=== PATIENT | male | born 1950 | race Two or more races ===

== ENCOUNTER 2016-08-01 04:18 | Inpatient (IN) | payer MEDICARE, OTHER ==
[~2016-08-01] VITALS: Ht 177.8 cm; Wt 59.0 kg
[2016-08-01] VITALS (9 sets, daily range): BP systolic 102–121; BP diastolic 67–84
[~2016-08-01 04:18] MED LIST: AMLODIPINE BESYL5 MG ORAL; BENZONATATE100 MG ORAL; GEODON20 MG ORAL; KLONOPIN1 MG ORAL; MIRALAX17 GM ORAL; NORCO 5-325 TA1 EACH ORAL; OMEPRAZOLE10 M1 ORAL
[2016-08-01] MEDS ORDERED: CIPROFLOXACIN750 MG ORAL (04:35)
[2016-08-01 05:17] LABS: BASOPHILS % (AUTO) 0.9 % (0.0-2.0); EOSINOPHILS % (AUTO) 3.4 % (0.0-3.0); LYMPHOCYTES % (AUTO) 10.8 % (20.0-45.0); MEAN CORPUSCULAR HEMOGLOBIN 30.4 PG (27.0-31.0); MEAN CORPUSCULAR HGB CONC 33.3 G/DL (32.0-36.0); MEAN CORPUSCULAR VOLUME 91 FL (80-99); MEAN PLATELET VOLUME 6.4 FL (6.5-10.1); MONOCYTES % (AUTO) 5.7 % (1.0-10.0); NEUTROPHILS % (AUTO) 79.2 % (45.0-75.0); PLATELET COUNT 120 K/UL (150-450); RED BLOOD COUNT 3.95 M/UL (4.70-6.10); RED CELL DISTRIBUTION WIDTH 13.6 % (11.6-14.8); WHITE BLOOD COUNT 11.7 K/UL (4.8-10.8)
[2016-08-01 05:31] LABS: ALBUMIN/GLOBULIN RATIO 0.9 (1.0-2.7); CALCIUM 9.3 mg/dL (8.6-10.2); CREATININE 1.3 mg/dL (0.7-1.2); GLOMERULAR FILTRATION RATE 55.4 mL/min (>60); TOTAL PROTEIN 6.7 g/dL (6.6-8.7)
[2016-08-01 06:08] LABS: TROPONIN I < 0.30 ng/mL (<=0.30)
[2016-08-01 06:31] LABS: APPEARANCE,URINE SLIGHTLY CLOUDY; KETONES,URINE NEGATIVE (NEGATIVE); LEUKOCYTE ESTERASE ,URINE 3+ (NEGATIVE); NITRITE,URINE NEGATIVE (NEGATIVE); PH,URINE 6 (4.5-8.0); PROTEIN,URINE 3+ (NEGATIVE); UROBILINOGEN,URINE 4 MG/DL (0.0-1.0)
--- NOTE | 2016-08-01 06:34 | Emergency Room Report ---
History of Present Illness General Chief Complaint: Dyspnea/Respdistress Source: Patient, Medical Record Present Illness HPI 66 YO M recent discharge BIBEMS for continued progressive SOB on exertion. Denies cough, fever/chills, chest pain. Worse SOB with ambulation, walking up stairs, cant catch breath, even with supplemental home O2. Per EMR, patient was just admitted for known bilateral malignant pleural effusions s/p thoracentesis of right lung. Allergies: Coded Allergies: No Known Allergies (Unverified , 07/20/16) Patient History Past Medical History: see triage record, old chart reviewed Past Surgical History: none Pertinent Family History: none Social History: Denies: alcohol use, drug use, smoking Immunizations: UTD Reviewed Nursing Documentation: PMH: Agreed, PSxH: Agreed Nursing Documentation-PMH Past Medical History: No History, Except For Hx Cardiac Problems: Yes Hx Hypertension: Yes Hx Cancer: Yes - bladder cancer Hx Gastrointestinal Problems: No Hx Neurological Problems: No Review of Systems All Other Systems: negative except mentioned in HPI Physical Exam Vital Signs Date Time Temp Pulse Resp B/P Pulse Ox O2 Delivery O2 Flow Rate FiO2 08/01/16 04:08 116 24 122/80 99 Nasal Cannula 4.0 08/01/16 04:25 97.3 Sp02 EP Interpretation: reviewed, normal, abnormal General Appearance: normal inspection, well appearing, no apparent distress, alert, GCS 15, non-toxic Head: normocephalic, atraumatic Eyes: bilateral eye EOMI, bilateral eye PERRL ENT: normal ENT inspection, hearing grossly normal, normal voice Neck: normal inspection, full range of motion, supple, no bony tend Respiratory: normal inspection, no respiratory distress, no wheezing, crackles Cardiovascular #1: regular rate, rhythm, no edema Gastrointestinal: normal inspection, normal bowel sounds, non tender, soft, no guarding, no hernia Genitourinary: no CVA tenderness Musculoskeletal: normal inspection, back normal, normal range of motion, Rachel' s Sign negative Neurologic: normal inspection, alert, oriented x3, responsive, curtain cleaner III-XII nml as tested, motor strength/tone normal, speech normal Psychiatric: normal inspection, judgement/insight normal, mood/affect normal Skin: normal inspection, normal color, no rash Medical Decision Making Medicare Attestation I Shanice Carrion MD hereby attest that the medical record entry for date of service, 07/02/16 accurately reflects signatures/notations that I made in my capacity as MD when I treated/diagnosed the above listed Medicare beneficiary. I attest that this information is true, accurate and complete to the best of my knowledge. I understand that any falsification, omission, or concealment of material fact may subject me to administrative, civil, or criminal liability. This patient warrants hospital admission for extreme of age and has a condition that cannot be treated as outpatient. Diagnostic Impression: Primary Impression: Dyspnea Qualified Codes: R06.09 - Other forms of dyspnea Additional Impression: Malignant pleural effusion ER Course 66 YO M with continued progressive SOB. Afebrile. VSS. DDx Pleural effusions, PNA, URI, sepsis PLAN Labs, CXR, EKG, supplemental O2 Likely admit for deconditioning EKG Diagnostic Results Rate: tachycardiac Rhythm: NSR ST Segments: no acute changes Rhythm Strip Diag. Results EP Interpretation: yes Rate: 110 Rhythm: NSR, no PVC's, no ectopy Chest X-Ray Diagnostic Results EP Interpretation: Yes Findings: no pneumothorax, no acute cardiopulmonary disease, other - Bilateral pleural effusions, insterstitial lung disease Reevaluation Time: 06:29 Last Vital Signs Date Time Temp Pulse Resp B/P Pulse Ox O2 Delivery O2 Flow Rate FiO2 08/01/16 05:11 97.3 116 18 106/79 95 Room Air 08/01/16 04:25 2.0 Reevaluation Impression Labs: Leuks 11K (noted leukocytosis in this range previously), elevated serumCr ( also baseline). Normal H&H. BNP normal. Trop 0. EKG: Sinus tachycardia CXR: bilateral pleual effusions, unchanged relatively from previous admission A: Endorsed to Dr Salas at 630 am for continued SOB on exertion No sign of infection/sepsis/PNA at this time Disposition: ADMITTED INPATIENT Condition: Serious Referrals: NOT CHOSEN IPA/,REFERRING (PCP) SHANICE CARRION M.D. Aug 01, 2016 06:34
[2016-08-01] MEDS ORDERED: LORazepam Inj 2mg/ml 1ml IV PRN (07:00)
[2016-08-01] MEDS ORDERED: Zolpidem 5mg tab ORAL PRN (07:00)
[2016-08-01] MEDS ORDERED: Mylanta II UD 30ml ORAL PRN (07:00)
[2016-08-01] MEDS ORDERED: Miralax 17gm pkt ORAL PRN (07:00)
[2016-08-01 07:29] LABS: BACTERIA,URINE FEW /HPF; RBC,URINE TNTC /HPF (0 - 0); SQUAMOUS EPITHELIAL CELL,UR FEW /LPF (NONE/OCC); WBC,URINE 30-40 /HPF (0 - 0)
[2016-08-01] MEDS: Ziprasidone 20mg cap ORAL SCH ×2 (09:15→19:15)
[2016-08-01 10:12] LABS: INR 1.2 (0.9-1.1); PROTHROMBIN TIME 12.5 SEC (9.30-11.50)
--- NOTE | 2016-08-01 15:44 | History and Physical ---
History of Present Illness General Date patient seen: Aug 01, 2016 Reason for Hospitalization: Dyspnea/Respdistress Present Illness HPI 66 year old male with hx of metastatic adeno-cancer with recurrent pleural effusion, just recently discharged presented [place] [facility] [place] paramedics for continued progressive SOB on exertion. Denies cough, fever/chills, chest pain. Worse SOB with ambulation, walking up stairs, cant catch breath, even with supplemental home O2. Patient is admitted to telemetry for further evaluation Allergies: Coded Allergies: No Known Allergies (Unverified , 07/20/16) Medication History Scheduled Amlodipine Besylate* (Amlodipine Besylate*), 5 MG ORAL DAILY, (Reported) Benzonatate* (Benzonatate*), 100 MG ORAL Q8HR, (Reported) Ciprofloxacin Hcl (Ciprofloxacin Hcl*), 500 MG ORAL BID, (Reported) Omeprazole (Omeprazole), 20 MG ORAL DAILY, (Reported) Polyethylene Glycol* (Miralax*), 17 GM ORAL PRN, (Reported) Ziprasidone Hcl* (Geodon*), 20 MG ORAL TWICE A DAY, (Reported) Scheduled PRN Hydrocodone Bit/Acetaminophen 5-325* ([place] 5-325*), 1 TAB ORAL Q6H PRN for For Pain, (Reported) Patient History Healthcare decision maker Resuscitation status Advanced Directive on File Past Medical/Surgical History Past Medical/Surgical History: (1) Malignant pleural effusion (2) Hypertension (3) metatatic adenocarcinoma (4) Severe protein-calorie malnutrition (5) Bladder cancer Review of Systems All Other Systems: negative except mentioned in HPI Physical Exam General Appearance: cachetic Lines, tubes and drains: peripheral HEENT: normocephalic, atraumatic Neck: non-tender, normal alignment, supple Respiratory/Chest: chest wall non-tender, lungs clear Breasts: no masses Cardiovascular/Chest: normal peripheral pulses Abdomen: normal bowel sounds, non tender Extremities: normal range of motion Skin Exam: normal pigmentation Last 24 Hour Vital Signs Date Time Temp Pulse Resp B/P Pulse Ox O2 Delivery O2 Flow Rate FiO2 08/01/16 14:27 96.8 117 20 109/76 100 Nasal Cannula 2.0 08/01/16 12:32 110 18 114/80 98 Nasal Cannula 2.0 110 08/01/16 10:48 97.3 107 14 109/67 100 Nasal Cannula 2.0 08/01/16 09:39 108 102/69 08/01/16 09:00 97.3 107 16 105/67 100 Nasal Cannula 2.0 08/01/16 07:45 97.3 108 16 102/69 99 Room Air 2.0 08/01/16 06:38 97.3 110 16 107/78 99 Room Air 2.0 08/01/16 05:11 97.3 116 18 106/79 95 Room Air 08/01/16 04:25 97.3 113 11 109/81 100 Nasal Cannula 2.0 08/01/16 04:25 113 11 Nasal Cannula 2.0 08/01/16 04:08 116 24 122/80 99 Nasal Cannula 4.0 Intake and Output 07/31/16 08/01/16 19:00 07:00 Intake Total 100 ml Balance 100 ml Intake Oral 100 ml # Voids 1 Laboratory Tests Test 08/01/16 05:00 08/01/16 06:22 08/01/16 08:00 White Blood Count 11.7 K/UL (4.8-10.8) H Red Blood Count 3.95 M/UL (4.70-6.10) L Hemoglobin 12.0 G/DL (14.2-18.0) L Hematocrit 36.1 % (42.0-52.0) L Mean Corpuscular Volume 91 FL (80-99) Mean Corpuscular Hemoglobin 30.4 PG (27.0-31.0) Mean Corpuscular Hemoglobin Concent 33.3 G/DL (32.0-36.0) Red Cell Distribution Width 13.6 % (11.6-14.8) Platelet Count 120 K/UL (150-450) L Mean Platelet Volume 6.4 FL (6.5-10.1) L Neutrophils (%) (Auto) 79.2 % (45.0-75.0) H Lymphocytes (%) (Auto) 10.8 % (20.0-45.0) L Monocytes (%) (Auto) 5.7 % (1.0-10.0) Eosinophils (%) (Auto) 3.4 % (0.0-3.0) H Basophils (%) (Auto) 0.9 % (0.0-2.0) Sodium Level 136 mEQ/L (135-145) Potassium Level 4.0 mEQ/L (3.4-4.9) Chloride Level 90 mEQ/L (98-107) L Carbon Dioxide Level 32 mEQ/L (20-30) H Anion Gap 14 (5-15) Blood Urea Nitrogen 32 mg/dL (7-23) H Creatinine 1.3 mg/dL (0.7-1.2) H Estimat Glomerular Filtration Rate 55.4 mL/min (>60) Glucose Level 119 mg/dL (74-106) H Calcium Level 9.3 mg/dL (8.6-10.2) Total Bilirubin 0.3 mg/dL (0.0-1.2) Aspartate Amino Transf (AST/SGOT) 26 U/L (5-40) Alanine Aminotransferase (ALT/SGPT) 16 U/L (3-41) Alkaline Phosphatase 1726 U/L (40-129) H Troponin I < 0.30 ng/mL (<=0.30) Pro-B-Type Natriuretic Peptide 158 pg/mL (0-125) H Total Protein 6.7 g/dL (6.6-8.7) Albumin 3.3 g/dL (3.5-5.2) L Globulin 3.4 g/dL Albumin/Globulin Ratio 0.9 (1.0-2.7) L Urine Color Yellow Urine Appearance Slightly cloudy Urine pH 6 (4.5-8.0) Urine Specific [place] 1.015 (1.005-1.035) Urine Protein 3+ (NEGATIVE) H Urine Glucose (UA) Negative (NEGATIVE) Urine Ketones Negative (NEGATIVE) Urine Occult Blood 5+ (NEGATIVE) H Urine Nitrite Negative (NEGATIVE) Urine Bilirubin Negative (NEGATIVE) Urine Urobilinogen 4 MG/DL (0.0-1.0) H Urine Leukocyte Esterase 3+ (NEGATIVE) H Urine RBC Tntc /HPF (0 - 0) H Urine WBC 30-40 /HPF (0 - 0) H Urine Squamous Epithelial Cells Few /LPF (NONE/OCC) Urine Bacteria Few /HPF (NONE) Prothrombin Time 12.5 SEC (9.30-11.50) H Prothromb Time International Ratio 1.2 (0.9-1.1) H Activated Partial Thromboplast Time 30 SEC (23-33) Height (Feet): 5 Height (Inches): 10.00 Weight (Pounds): 130 Medications Current Medications Medications (Trade) Dose Ordered Sig/Scot Route PRN Reason Start Time Stop Time Status Last Admin Dose Admin Acetaminophen (Tylenol) 650 mg Q4H PRN ORAL fever 08/01/16 07:00 08/31/16 06:59 Acetaminophen/ Hydrocodone Bitart ([place] 5/325) 1 tab Q6H PRN ORAL Moderate Pain (Pain Scale 4-6) 08/01/16 07:00 08/08/16 06:59 Al Hydroxide/Mg Hydroxide (Mylanta II) 30 ml Q6H PRN ORAL dyspepsia 08/01/16 07:00 08/31/16 06:59 Amlodipine Besylate (Norvasc) 5 mg DAILY ORAL 08/01/16 09:00 08/31/16 08:59 08/01/16 09:39 Dextrose (Dextrose 50%) STAT PRN IV Hypoglycemia 08/01/16 07:00 08/31/16 06:59 Lorazepam (Ativan 2mg/ml 1ml) 0.5 mg Q4H PRN IV For Anxiety 08/01/16 07:00 08/08/16 06:59 Morphine Sulfate (Morphine Sulfate) 1 mg Q4H PRN IVP Severe Pain (Pain Scale 7-10) 08/01/16 07:00 08/08/16 06:59 Ondansetron HCl (Zofran) 4 mg Q6H PRN IVP Nausea & Vomiting 08/01/16 07:00 08/31/16 06:59 Polyethylene Glycol (Miralax) 17 gm HSPRN PRN ORAL Constipation 08/01/16 07:00 08/31/16 06:59 Ziprasidone (Geodon) 20 mg TWICE A DAY ORAL 08/01/16 09:00 08/31/16 08:59 08/01/16 09:15 Zolpidem Tartrate (Ambien) 5 mg HSPRN PRN ORAL Insomnia 08/01/16 07:00 08/31/16 06:59 Assessment/Plan Problem List: (1) Respiratory failure ICD Codes: J96.90 - Respiratory failure, unspecified, unspecified whether with hypoxia or hypercapnia SNOMED: 402296685 (2) Malignant pleural effusion ICD Codes: J91.0 - Malignant pleural effusion SNOMED: 81081294 (3) metatatic adenocarcinoma (4) Severe protein-calorie malnutrition ICD Codes: E43 - Unspecified severe protein-calorie malnutrition SNOMED: 269240465 (5) Hypertension ICD Codes: I10 - Essential (primary) hypertension SNOMED: 67664492 Assessment/Plan Respiratory treatment thoracentesis if there is enough fluid trial of steroids theophylline low dose methadone end of life care. BARBRA CARDENAS Aug 01, 2016 15:44
[2016-08-01] MEDS: Morphine Sulfate 2mg/ml Inj IVP PRN (15:49)
--- NOTE | 2016-08-01 16:28 | Diagnostic Imaging Report ---
Indication: Status post thoracentesis Technique: One view of the chest Comparison: 11 hours earlier Findings: Interim resolution of previously demonstrated left-sided pleural effusion, post thoracentesis. There is some residual opacity at the left lung base, may reflect atelectasis or small amount of reexpansion pulmonary edema. There is slightly increased small right-sided pleural effusion. There is generalized interstitial congestion. The heart size is upper limits of normal. Impression: Largely resolved left-sided pleural effusion, status post thoracentesis. No radiographically evident complication Left basilar parenchymal disease, likely atelectasis or possibly a small amount of reexpansion pulmonary edema Slightly increased small right-sided pleural effusion Other stable findings as described
--- NOTE | 2016-08-01 16:46 | Diagnostic Imaging Report ---
Indications: Pleural effusion Technique: Ultrasound used to localize optimal puncture site. Sterile prepping and draping left chest. Local anesthesia with 1% lidocaine. Under real-time ultrasound guidance, puncture pleural space using thoracentesis needle. Stylet removed. Catheter placed to vacuum bottle suction. Total 1900 milliliters of grossly bloody fluid aspirated. Patient tolerated procedure well, without immediate complication. Findings: Followup sonography demonstrates complete resolution of pleural fluid. Impression: Successful ultrasound-guided thoracentesis, yielding 1900 milliliters of grossly bloody fluid
[2016-08-01] MEDS: Theophylline ER 100mg ORAL SCH (21:56)
[2016-08-01 22:05] LABS: APPEARANCE, BODY FLUID BLOODY; BD FL SOURCE THORACENTESIS; BD FL VOLUME 24 mL; BODY FLUID NUCLEATED CELLS 11 /CUMM
[2016-08-01 22:06] LABS: BODY FLUID RBC 432000 /CUMM; POLYMORPHONUCLEAR WBC 62 %
[2016-08-01 22:07] LABS: MONONUCLEAR WBC 29 %
[2016-08-02 00:40] VITALS: BP 108/76
[2016-08-02] MEDS: Morphine Sulfate 2mg/ml Inj IVP PRN ×2 (01:59→06:09)
[2016-08-02 04:06] VITALS: BP 116/79
[2016-08-02 08:02] VITALS: BP 115/68
[2016-08-02 08:21] LABS: BASOPHILS % (AUTO) 0.8 % (0.0-2.0); EOSINOPHILS % (AUTO) 3.9 % (0.0-3.0); LYMPHOCYTES % (AUTO) 8.2 % (20.0-45.0); MEAN CORPUSCULAR HEMOGLOBIN 30.7 PG (27.0-31.0); MEAN CORPUSCULAR HGB CONC 33.2 G/DL (32.0-36.0); MEAN CORPUSCULAR VOLUME 92 FL (80-99); MEAN PLATELET VOLUME 7.9 FL (6.5-10.1); NEUTROPHILS % (AUTO) 81.2 % (45.0-75.0); PLATELET COUNT 102 K/UL (150-450); RED BLOOD COUNT 3.52 M/UL (4.70-6.10); RED CELL DISTRIBUTION WIDTH 13.7 % (11.6-14.8)
[2016-08-02] MEDS: Ziprasidone 20mg cap ORAL SCH ×2 (08:22→18:16)
[2016-08-02] MEDS: PredniSONE 5mg tab ORAL SCH (08:22)
[2016-08-02] MEDS: Theophylline ER 100mg ORAL SCH ×2 (08:22→22:26)
[2016-08-02] MEDS: Norco 5mg/325mg tab ORAL PRN ×3 (08:23→22:27)
[2016-08-02 08:25] LABS: ALBUMIN/GLOBULIN RATIO 1.1 (1.0-2.7); CALCIUM 8.6 mg/dL (8.6-10.2); CHOLESTEROL/HDL RATIO 5.8 (3.3-4.4); CREATININE 1.3 mg/dL (0.7-1.2); GLOMERULAR FILTRATION RATE 55.4 mL/min (>60); POTASSIUM 3.7 mEQ/L (3.4-4.9); TOTAL PROTEIN 5.9 g/dL (6.6-8.7)
[2016-08-02 08:29] LABS: THYROID STIMULATING HORMONE 1.35 uIU/mL (0.300-4.500)
--- NOTE | 2016-08-02 10:40 | Diagnostic Imaging Report ---
Indications: Chest pain, status post left thoracentesis Technique: Portable upright AP chest at 1845 Findings: Comparison: 1530 Cardio megaly, pulmonary vascular redistribution, bilateral interstitial infiltrates, bibasal pleural effusions unchanged. No pneumothorax or other new abnormality identified. IMPRESSION: No evidence of delayed development of left pneumothorax following right thoracentesis Stable bilateral congestive changes
[2016-08-02 11:40] VITALS: BP 102/72
[2016-08-02 15:10] LABS: PROTEIN, BODY FLUID 3.8 g/dL (.)
--- NOTE | 2016-08-02 15:12 | Pulmonology Progress Note ---
Assessment/Plan Problems: (1) Respiratory failure (2) Malignant pleural effusion (3) metatatic adenocarcinoma (4) Severe protein-calorie malnutrition (5) Hypertension Assessment/Plan improving sill short of breath check pleural fluid med/surg dc planning Subjective ROS Limited/Unobtainable: No Interval Events: had thoracentesis, 1.5 liter removed Constitutional: Reports: anorexia HEENT: Repors: no symptoms Respiratory: Reports: dry cough, shortness of breath Cardiovascular: Reports: no symptoms Gastrointestinal/Abdominal: Reports: no symptoms Allergies: Coded Allergies: No Known Allergies (Unverified , 07/20/16) Objective Last 24 Hour Vital Signs Date Time Temp Pulse Resp B/P Pulse Ox O2 Delivery O2 Flow Rate FiO2 08/02/16 11:40 97.7 119 20 102/72 95 Nasal Cannula 2.0 08/02/16 09:22 97.5 08/02/16 08:22 117 115/68 08/02/16 08:02 97.5 117 20 115/68 97 Nasal Cannula 2.0 08/02/16 08:00 117 08/02/16 04:06 98.1 118 22 116/79 97 Nasal Cannula 2.0 08/02/16 04:00 116 08/02/16 00:40 97.7 120 21 108/76 100 Nasal Cannula 2.0 08/02/16 00:00 119 08/01/16 20:00 97.7 123 22 121/84 98 Room Air 08/01/16 20:00 121 08/01/16 16:00 97.5 122 20 107/82 97 Nasal Cannula 2.0 Intake and Output 08/01/16 08/02/16 19:00 07:00 Intake Total 260 ml Output Total 900 ml Balance -640 ml Intake Oral 260 ml Output Urine Total 900 ml # Bowel Movements 1 General Appearance: cachetic HEENT: normocephalic, atraumatic Respiratory/Chest: chest wall non-tender, lungs clear Cardiovascular: normal peripheral pulses, normal rate Abdomen: normal bowel sounds, soft, non tender Genitourinary: normal external genitalia Neurologic/Psychiatric: 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 normal Lymphatic: no neck adenopathy Microbiology Date/Time Source Procedure Growth Status 08/01/16 16:00 Pleural Fluid Gram Stain - Final Resulted 08/01/16 16:00 Pleural Fluid Body Fluid Culture - Preliminary NO GROWTH AFTER 24 HOURS Resulted 08/01/16 06:22 Urine,Clean Catch Urine Culture - Preliminary NO GROWTH Resulted Laboratory Tests 08/01/16 16:00: Body Fluid Source Thoracentesis, Body Fluid Volume 24, Body Fluid Appearance Bloody, Body Fluid RBC [id number], Body Fluid Total Nucleated Cells 11, Body Fluid Polynuclear WBCs (%) 62, Body Fluid Mononuclear WBCs (%) 29, Body Fluid Mesothelial Cells (%) 9, Body Fluid Glucose [Pending], Body Fluid Total Protein [Pending], Body Fluid Albumin [Pending] 08/02/16 07:40: White Blood Count 12.0H, Red Blood Count 3.52L, Hemoglobin 10.8L, Hematocrit 32.5L, Mean Corpuscular Volume 92, Mean Corpuscular Hemoglobin 30.7, Mean Corpuscular Hemoglobin Concent 33.2, Red Cell Distribution Width 13.7, Platelet Count 102L, Mean Platelet Volume 7.9, Neutrophils (%) (Auto) 81.2H, Lymphocytes (%) (Auto) 8.2L, Monocytes (%) (Auto) 6.0, Eosinophils (%) (Auto) 3.9H, Basophils (%) (Auto) 0.8, Sodium Level 136, Potassium Level 3.7, Chloride Level 94L, Carbon Dioxide Level 30, Anion Gap 12, Blood Urea Nitrogen 31H, Creatinine 1.3H, Estimat Glomerular Filtration Rate 55.4, Glucose Level 187H, Calcium Level 8.6, Total Bilirubin 0.5, Aspartate Amino Transf (AST/SGOT) 21, Alanine Aminotransferase (ALT/SGPT) 12, Alkaline Phosphatase 1481H, Total Protein 5.9L, Albumin 3.1L, Globulin 2.8, Albumin/Globulin Ratio 1.1, Triglycerides Level 245H , Cholesterol Level 210H, LDL Cholesterol 125H, HDL Cholesterol 36, Cholesterol/ HDL Ratio 5.8H, Thyroid Stimulating Hormone (TSH) 1.350 Current Medications Medications (Trade) Dose Ordered Sig/Scot Route PRN Reason Start Time Stop Time Status Last Admin Dose Admin Acetaminophen (Tylenol) 650 mg Q4H PRN ORAL fever 08/01/16 07:00 08/31/16 06:59 Acetaminophen/ Hydrocodone Bitart ([place] 5/325) 1 tab Q6H PRN ORAL Moderate Pain (Pain Scale 4-6) 08/01/16 07:00 08/08/16 06:59 08/02/16 14:50 Al Hydroxide/Mg Hydroxide (Mylanta II) 30 ml Q6H PRN ORAL dyspepsia 08/01/16 07:00 08/31/16 06:59 Amlodipine Besylate (Norvasc) 5 mg DAILY ORAL 08/01/16 09:00 08/31/16 08:59 08/02/16 08:22 Dextrose (Dextrose 50%) STAT PRN IV Hypoglycemia 08/01/16 07:00 08/31/16 06:59 Lorazepam (Ativan 2mg/ml 1ml) 0.5 mg Q4H PRN IV For Anxiety 08/01/16 07:00 08/08/16 06:59 Methadone HCl (Methadone HCl) 5 mg EVERY 12 HOURS ORAL 08/01/16 21:00 08/08/16 20:59 08/01/16 21:56 Morphine Sulfate (Morphine Sulfate) 1 mg Q4H PRN IVP Severe Pain (Pain Scale 7-10) 08/01/16 07:00 08/08/16 06:59 08/02/16 06:09 Ondansetron HCl (Zofran) 4 mg Q6H PRN IVP Nausea & Vomiting 08/01/16 07:00 08/31/16 06:59 Polyethylene Glycol (Miralax) 17 gm HSPRN PRN ORAL Constipation 08/01/16 07:00 08/31/16 06:59 Prednisone (predniSONE) 5 mg DAILY ORAL 08/02/16 09:00 09/01/16 08:59 08/02/16 08:22 Temazepam (Restoril) 7.5 mg HSPRN PRN ORAL Anxiety 08/01/16 22:00 08/08/16 21:59 08/02/16 01:58 Theophylline (Andrei-Dur) 100 mg EVERY 12 HOURS ORAL 08/01/16 21:00 08/31/16 20:59 08/02/16 08:22 Ziprasidone (Geodon) 20 mg TWICE A DAY ORAL 08/01/16 09:00 08/31/16 08:59 08/02/16 08:22 Zolpidem Tartrate (Ambien) 5 mg HSPRN PRN ORAL Insomnia 08/01/16 07:00 08/31/16 06:59 BARBRA CARDENAS Aug 02, 2016 15:12
[2016-08-02 16:10] VITALS: BP 103/64
[2016-08-02 20:00] VITALS: BP 114/73
[2016-08-03 00:29] VITALS: BP 112/75
[2016-08-03 04:26] VITALS: BP 103/71
[2016-08-03] MEDS: Norco 5mg/325mg tab ORAL PRN ×3 (04:37→16:39)
[2016-08-03 07:54] VITALS: BP 148/83
[2016-08-03] MEDS: Theophylline ER 100mg ORAL SCH (08:49)
[2016-08-03] MEDS: PredniSONE 5mg tab ORAL SCH (08:49)
[2016-08-03] MEDS: Ziprasidone 20mg cap ORAL SCH ×2 (08:49→19:59)
[2016-08-03 11:26] VITALS: BP 119/75
--- NOTE | 2016-08-03 13:18 | Pulmonology Progress Note ---
Assessment/Plan Problems: (1) Respiratory failure (2) Malignant pleural effusion (3) metatatic adenocarcinoma (4) Severe protein-calorie malnutrition (5) Hypertension Assessment/Plan improving sill short of breath check pleural fluid med/surg dc planning pt agreed to apply for medical and go to [place] Subjective ROS Limited/Unobtainable: No Constitutional: Reports: no symptoms HEENT: Repors: no symptoms Respiratory: Reports: no symptoms Allergies: Coded Allergies: No Known Allergies (Unverified , 07/20/16) Objective Last 24 Hour Vital Signs Date Time Temp Pulse Resp B/P Pulse Ox O2 Delivery O2 Flow Rate FiO2 08/03/16 11:37 96.8 08/03/16 11:26 96.8 121 20 119/75 93 Room Air 08/03/16 08:49 126 148/83 08/03/16 07:54 96.6 126 20 148/83 99 Nasal Cannula 2.0 08/03/16 04:26 98.4 125 21 103/71 95 Nasal Cannula 2.0 08/03/16 04:08 128 08/03/16 00:29 98.7 122 22 112/75 95 Room Air 08/03/16 00:05 126 08/02/16 20:00 124 08/02/16 20:00 98.8 121 18 114/73 98 Room Air 08/02/16 16:10 97.7 115 18 103/64 95 Nasal Cannula 2.0 08/02/16 16:00 119 Intake and Output 08/02/16 08/03/16 19:00 07:00 Intake Total 320 ml 450 ml Output Total 450 ml 990 ml Balance -130 ml -540 ml Intake Oral 320 ml 450 ml Output Urine Total 450 ml 990 ml # Voids 5 General Appearance: cachetic HEENT: normocephalic, atraumatic Respiratory/Chest: chest wall non-tender Cardiovascular: normal peripheral pulses, regular rhythm Abdomen: normal bowel sounds, soft, non tender Skin: no rash Neurologic/Psychiatric: stock 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-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 grossly normal, abnormal gait Microbiology Date/Time Source Procedure Growth Status 08/01/16 16:00 Pleural Fluid Gram Stain - Final Resulted 08/01/16 16:00 Pleural Fluid Body Fluid Culture - Preliminary Resulted 08/01/16 06:22 Urine,Clean Catch Urine Culture - Preliminary NO GROWTH AFTER 24 HOURS Resulted Current Medications Medications (Trade) Dose Ordered Sig/Scot Route PRN Reason Start Time Stop Time Status Last Admin Dose Admin Acetaminophen (Tylenol) 650 mg Q4H PRN ORAL fever 08/01/16 07:00 08/31/16 06:59 Acetaminophen/ Hydrocodone Bitart ([place] 5/325) 1 tab Q6H PRN ORAL Moderate Pain (Pain Scale 4-6) 08/01/16 07:00 08/08/16 06:59 08/03/16 10:38 Al Hydroxide/Mg Hydroxide (Mylanta II) 30 ml Q6H PRN ORAL dyspepsia 08/01/16 07:00 08/31/16 06:59 Amlodipine Besylate (Norvasc) 5 mg DAILY ORAL 08/01/16 09:00 08/31/16 08:59 08/03/16 08:49 Dextrose (Dextrose 50%) STAT PRN IV Hypoglycemia 08/01/16 07:00 08/31/16 06:59 Lorazepam (Ativan 2mg/ml 1ml) 0.5 mg Q4H PRN IV For Anxiety 08/01/16 07:00 08/08/16 06:59 08/03/16 04:37 Methadone HCl (Methadone HCl) 5 mg EVERY 12 HOURS ORAL 08/01/16 21:00 08/08/16 20:59 08/01/16 21:56 Morphine Sulfate (Morphine Sulfate) 1 mg Q4H PRN IVP Severe Pain (Pain Scale 7-10) 08/01/16 07:00 08/08/16 06:59 08/02/16 06:09 Ondansetron HCl (Zofran) 4 mg Q6H PRN IVP Nausea & Vomiting 08/01/16 07:00 08/31/16 06:59 Polyethylene Glycol (Miralax) 17 gm HSPRN PRN ORAL Constipation 08/01/16 07:00 08/31/16 06:59 Prednisone (predniSONE) 5 mg DAILY ORAL 08/02/16 09:00 09/01/16 08:59 08/03/16 08:49 Temazepam (Restoril) 7.5 mg HSPRN PRN ORAL Anxiety 08/01/16 22:00 08/08/16 21:59 08/02/16 01:58 Theophylline (Andrei-Dur) 100 mg EVERY 12 HOURS ORAL 08/01/16 21:00 08/31/16 20:59 08/03/16 08:49 Ziprasidone (Geodon) 20 mg TWICE A DAY ORAL 08/01/16 09:00 08/31/16 08:59 08/03/16 08:49 Zolpidem Tartrate (Ambien) 5 mg HSPRN PRN ORAL Insomnia 08/01/16 07:00 08/31/16 06:59 BARBRA CARDENAS Aug 03, 2016 13:18
[2016-08-03 16:00] VITALS: BP 115/78
[2016-08-03 20:00] VITALS: BP 120/87
--- NOTE | 2016-08-05 10:32 | Cardiology Report ---
APPROVED REPORT EKG Measurement Heart [id number] Sinus tachycardia Otherwise normal ECG
--- NOTE | 2016-08-05 10:32 | Diagnostic Imaging Report ---
Indication: Chest pain Technique: One view of the chest Comparison: 07/25/2016 Findings: Large left pleural effusion is again demonstrated. Considerable diffuse interstitial disease is again demonstrated bilaterally, appearing similar to the prior study. The heart size is difficult to assess. Previously demonstrated bowel contrast is no longer evident Impression: Large left pleural effusion, unchanged from prior study 07/17/2016 Diffuse bilateral interstitial disease, likely pulmonary edema, similar to prior exam Other findings as noted
--- NOTE | 2016-08-06 09:14 | Discharge Summary ---
Discharge Summary Hospital Course Date of Admission Aug 01, 2016 at 06:23 Date of Discharge Aug 03, 2016 at 20:45 Admitting Diagnosis SOB Reason for Hospitalization: dyspnea HPI Derick Hedrick, 66 year old male, admitted for continued progressive SOB on exertion. Denied cough, fever/chills, chest pain. Worse SOB with ambulation, walking up stairs, cant catch breath, even with supplemental home O2. Recent admission for bilateral malignant pleural effusion, s/p thoracentesis Admitting diagnoses: dyspnea malignant pleural effusion Procedures s/p 08/01 thoracentesis -1900 cc of grossly bloody fluid Hospital Course thoracentesis done 08/01 -1900 cc grossly bloody fluid pleural fluid culture - negative cytology pleural fluid ( on previous admission) - indicated malignant cells - primary lung vs metastatic patient with known hx of bladder Ca and recurrent pleural effusion requiring thoracentesis ( in [place] and [facility]) initial acute hypoxemic respiratory failure 2 to large left pleural effusion - resolved O2, HHN prn Venous Duplex BLE negative CXR post tap - largely resolved pleural effusion, no evidence of pneumothorax BP management with CCB, stable pain management DVT prophylaxis will likely need therapeutic thoracentesis in the future dc to SNF, close monitoring of pulmonary status dietary eval and recommendations for severe protein calorie malnutrition Discharge Medications Continued Medications: Amlodipine Besylate* (Amlodipine Besylate*) 5 Mg Tablet 5 MG ORAL DAILY, TAB Benzonatate* (Benzonatate*) 100 Mg Capsule 100 MG ORAL Q8HR, PERLE Hydrocodone Bit/Acetaminophen 5-325* (Spencer 5-325*) 1 Each Tablet 1 TAB ORAL Q6H PRN for For Pain, #10 TAB 0 Refills Omeprazole (Omeprazole) 10 Mg Capsule.dr 20 MG ORAL DAILY, #30 CAP 0 Refills Polyethylene Glycol* (Miralax*) 17 Gm Powd.pack 17 GM ORAL PRN, PACKET Ziprasidone Hcl* (Geodon*) 20 Mg Capsule 20 MG ORAL TWICE A DAY, #60 CAP 0 Refills Discontinued Medications: Ciprofloxacin Hcl (Ciprofloxacin Hcl*) 750 Mg Tablet 500 MG ORAL BID, #5 TAB 0 Refills Discharge Condition Upon Discharge: stable Discharge Disposition Patient was discharged to SNF/Subacute Facility(03) Discharge Diagnoses: (1) Acute hypoxemic respiratory failure (2) Malignant pleural effusion (3) Metastatic adenocarcinoma (4) Bladder cancer (5) Severe protein-calorie malnutrition (6) Hypertension Discharge Instructions Discharge Instructions Follow up with: MD at the facility Call MD/Return to Hospital if: increased dyspnea, chest neal, cough, Diet: cardiac 2 GM Na, low fat Activity: resume normal activities, as tolerated Pneumonia Vaccine: pt rcvd vaccine prior to this visit Influenza Vaccine (Apr to Sep): pt rcvd vaccine prior to this visit Special Instructions I have been assigned to complete a D/C Summary on this account. I was not involved in the patient management Sunni Botello NP ([facility]te[place]) Aug 06, 2016 09:14
[2016-08-07 12:38] LABS: COMMENT,BODY FLUID PATHOLOGIST COMMENT
--- NOTE | 2016-08-07 22:54 | Diagnostic Imaging Report ---
APPROVED REPORT CPT Code: 40439 Present Symptoms Shortness of breath BILATERAL: Imaging reveals a patent deep venous system bilaterally. There is no evidence of thrombus within the femoral, popliteal or tibial segments. The greater saphenous veins are also within normal limits. Doppler indicates normal spontaneous flow within these segments.
== END 2016-08-03 20:45 | DRG 843 ==
LOC: EDBD 04:18 → EMR 05:54 → 2E 06:23 → EDBEDREQ 12:22
PROC: 0W9B3ZZ Drainage of Left Pleural Cavity, Percutaneous Approach (ICD-10-PCS; principal; 2016-08-01)
DX: C79.9 Secondary malignant neoplasm of unspecified site (principal); E43 Unspecified severe protein-calorie malnutrition; J96.01 Acute respiratory failure with hypoxia; J91.0 Malignant pleural effusion; C67.9 Malignant neoplasm of bladder, unspecified; Z68.1 Body mass index [BMI] 19.9 or less, adult; I10 Essential (primary) hypertension
CPT/HCPCS: 36415; 71010; 76942; 80053; 80061; 81003; 83880; 84443; 84484; 85025; 85610; 85730; 87070; 87086; 87205; 88104; 89051; 93005; 93970

== ENCOUNTER 2016-08-05 17:02 | Inpatient (IN) | payer MEDICARE, OTHER ==
[~2016-08-05] VITALS: Ht 170.2 cm; Wt 73.5 kg
[~2016-08-05 17:02] MED LIST changes: +CIPROFLOXACIN750 MG ORAL
[2016-08-05 17:05] VITALS: BP 107/81
[2016-08-05] MEDS ORDERED: Zosyn 3.375gm inj ONE (17:39)
[2016-08-05 17:40] LABS: MEAN CORPUSCULAR HEMOGLOBIN 29.8 PG (27.0-31.0); MEAN CORPUSCULAR HGB CONC 32.9 G/DL (32.0-36.0); MEAN CORPUSCULAR VOLUME 90 FL (80-99); MEAN PLATELET VOLUME 8.9 FL (6.5-10.1); PLATELET COUNT 137 K/UL (150-450); RED BLOOD COUNT 3.71 M/UL (4.70-6.10); RED CELL DISTRIBUTION WIDTH 14.3 % (11.6-14.8)
[2016-08-05 17:44] LABS: WHITE BLOOD COUNT 21.8 K/UL (4.8-10.8)
[2016-08-05] MEDS ORDERED: LORazepam Inj 2mg/ml 1ml IV ONE ×2 (17:45→20:00)
[2016-08-05 17:48] LABS: ABG PCO2 33.2 mmHg (35.0-45.0)
[2016-08-05 17:49] LABS: ABG ALLEN TEST POSITIVE; ABG BASE EXCESS -1.5
[2016-08-05 17:50] LABS: ALBUMIN/GLOBULIN RATIO 0.9 (1.0-2.7); CREATININE 1.7 mg/dL (0.7-1.2); GLOMERULAR FILTRATION RATE 40.7 mL/min (>60); MAGNESIUM 2.4 mg/dL (1.7-2.5); PHOSPHORUS 4.5 mg/dL (2.5-4.8); POTASSIUM 4.6 mEQ/L (3.4-4.9); TOTAL PROTEIN 6.7 g/dL (6.6-8.7)
[2016-08-05 17:55] LABS: TROPONIN I < 0.30 ng/mL (<=0.30)
[2016-08-05 17:58] LABS: REFLEX LACTIC ACID YES OR NO YES
[2016-08-05 18:20] VITALS: BP 110/78
[2016-08-05 18:26] LABS: APPEARANCE,URINE VERY CLOUDY; KETONES,URINE 1+ (NEGATIVE); LEUKOCYTE ESTERASE ,URINE 3+ (NEGATIVE); NITRITE,URINE POSITIVE (NEGATIVE); PH,URINE 5 (4.5-8.0); PROTEIN,URINE 3+ (NEGATIVE); UROBILINOGEN,URINE 4 MG/DL (0.0-1.0)
[2016-08-05 18:40] LABS: BACTERIA,URINE MODERATE /HPF; ICTOTEST NEGATIVE; RBC,URINE TNTC /HPF (0 - 0); SQUAMOUS EPITHELIAL CELL,UR FEW /LPF (NONE/OCC)
[2016-08-05 18:42] LABS: CKMB 2.2 ng/mL (< 6.7)
[2016-08-05] MEDS ORDERED: Morphine Sulfate 4mg/ml Inj IVP PRN (18:45)
[2016-08-05] MEDS ORDERED: DuoNeb 0.5-3(2.5)mg/3ml neb HHN PRN (18:45)
[2016-08-05] MEDS ORDERED: Miralax 17gm pkt ORAL PRN (18:45)
[2016-08-05] MEDS ORDERED: AMBIEN5 MG ORAL (19:23)
[2016-08-05] MEDS ORDERED: PREDNISONE2.5 MG ORAL (19:23)
[2016-08-05] MEDS ORDERED: LORAZEPAM0.5 MG ORAL (19:23)
[2016-08-05] MEDS ORDERED: RESTORIL7.5 MG ORAL (19:23)
[2016-08-05] MEDS ORDERED: PREDNISOLONE5 G1 MC (19:23)
[2016-08-05 19:24] VITALS: BP 131/92
[2016-08-05] MEDS ORDERED: THEOPHYLLINE A100 MG ORAL (19:35)
[2016-08-05] MEDS ORDERED: ZOFRAN4 M3 ORAL (19:35)
[2016-08-05] MEDS ORDERED: Acetaminophen 650 MG SUPP RECTAL ONE (19:45)
[2016-08-05 20:47] VITALS: BP 145/96
[2016-08-05 20:54] LABS: LYMPHOCYTES % (MANUAL) 12 % (20-45); NEUTROPHILS % (MANUAL) 85 % (45-75); TOTAL CELLS COUNTED 100
[2016-08-05 20:56] LABS: BAND NEUTROPHILS % (MANUAL) 0 % (0-8); BASOPHILS % (MANUAL) 0 % (0-2); EOSINOPHILS % (MANUAL) 0 % (0-3); HYPOCHROMASIA 1+; PLATELET ESTIMATE DECREASED; PLATELET MORPHOLOGY NORMAL
[2016-08-05 21:00] VITALS: BP 157/102
--- NOTE | 2016-08-05 21:21 | Emergency Room Report ---
History of Present Illness General Chief Complaint: Dyspnea/Respdistress Source: Patient, EMS Present Illness HPI Patient is a 66-year-old male who presented from group home for acute respiratory distress. 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 The patient was noted to have metastatic pleural effusion which was recurrent. The patient presented after increased difficulty breathing. Patient was brought in by ambulance on a continuous positive airway pressure. The patient was on supplemental oxygen. Patient was noted to have a fever. He is markedly tachycardic per EMS he was noted to have adequate blood sugar Allergies: Coded Allergies: No Known Allergies (Unverified , 07/20/16) Patient History Past Medical History: see triage record Reviewed Nursing Documentation: PMH: Agreed, PSxH: Agreed Nursing Documentation-PMH Past Medical History: No History, Except For Hx Cardiac Problems: Yes - anemia, coagulopathy Hx Hypertension: Yes Hx Cancer: Yes - bladder cancer, metatatic adenocarcinoma Hx Gastrointestinal Problems: No Hx Neurological Problems: No Review of Systems All Other Systems: negative except mentioned in HPI Physical Exam Vital Signs Date Time Temp Pulse Resp B/P Pulse Ox O2 Delivery O2 Flow Rate FiO2 08/05/16 17:01 145 44 122/82 94 Bi-pap 08/05/16 17:02 100 08/05/16 17:05 98.8 Sp02 EP Interpretation: normal, abnormal General Appearance: alert, GCS 15, moderate distress, Chronically Ill ENT: moist mucus membranes, dry mucus membranes Neck: full range of motion Respiratory: respiratory distress, crackles, wheezing Cardiovascular #1: normal peripheral pulses, tachycardia Gastrointestinal: normal inspection, normal bowel sounds, non tender, soft Musculoskeletal: normal inspection, digits/nails normal Neurologic: normal inspection, alert, oriented x3, responsive, 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 Total critical care time excluding procedures approximately 45 minutes. Medical Decision Making Diagnostic Impression: Primary Impression: Respiratory failure Additional Impressions: Bladder cancer Severe protein-calorie malnutrition Malignant pleural effusion Severe sepsis ER Course Patient presented for shortness of breath. Differential included but was not limited to anemia, pneumonia, pneumothorax, myocardial infarction, pericardial effusion, congestive heart failure. Because of complexity of patient's case laboratory testing and imaging studies were ordered. The patient was noted to have markedly elevated white blood count. The patient was noted to have a rapid respiratory rate which was the improved after the patient was placed on BiPAP. Patient was noted to have markedly elevated lactic acid level. The patient started empirically on IV antibiotics. Dr. bryant was contacted for admission due to patient's severe respiratory distress. Labs Test 08/05/16 16:55 08/05/16 17:40 08/05/16 18:11 08/05/16 20:10 White Blood Count 21.8 K/UL (4.8-10.8) Red Blood Count 3.71 M/UL (4.70-6.10) Hemoglobin 11.0 G/DL (14.2-18.0) Hematocrit 33.5 % (42.0-52.0) Mean Corpuscular Volume 90 FL (80-99) Mean Corpuscular Hemoglobin 29.8 PG (27.0-31.0) Mean Corpuscular Hemoglobin Concent 32.9 G/DL (32.0-36.0) Red Cell Distribution Width 14.3 % (11.6-14.8) Platelet Count 137 K/UL (150-450) Mean Platelet Volume 8.9 FL (6.5-10.1) Neutrophils (%) (Auto) % (45.0-75.0) Lymphocytes (%) (Auto) % (20.0-45.0) Monocytes (%) (Auto) % (1.0-10.0) Eosinophils (%) (Auto) % (0.0-3.0) Basophils (%) (Auto) % (0.0-2.0) Differential Total Cells Counted 100 Neutrophils % (Manual) 85 % (45-75) Lymphocytes % (Manual) 12 % (20-45) Monocytes % (Manual) 3 % (1-10) Eosinophils % (Manual) 0 % (0-3) Basophils % (Manual) 0 % (0-2) Band Neutrophils 0 % (0-8) Platelet Estimate Decreased Platelet Morphology Normal Red Blood Cell Morphology Normal Hypochromasia 1+ Sodium Level 138 mEQ/L (135-145) Potassium Level 4.6 mEQ/L (3.4-4.9) Chloride Level 90 mEQ/L (98-107) Carbon Dioxide Level 22 mEQ/L (20-30) Anion Gap 26 (5-15) Blood Urea Nitrogen 51 mg/dL (7-23) Creatinine 1.7 mg/dL (0.7-1.2) Estimat Glomerular Filtration Rate 40.7 mL/min (>60) Glucose Level 189 mg/dL (74-106) Calcium Level 9.0 mg/dL (8.6-10.2) Phosphorus Level 4.5 mg/dL (2.5-4.8) Magnesium Level 2.4 mg/dL (1.7-2.5) Total Bilirubin 0.8 mg/dL (0.0-1.2) Aspartate Amino Transf (AST/SGOT) 38 U/L (5-40) Alanine Aminotransferase (ALT/SGPT) 20 U/L (3-41) Alkaline Phosphatase 1763 U/L (40-129) Total Creatine Kinase 98 U/L (38-174) Creatine Kinase MB 2.2 ng/mL (< 6.7) Creatine Kinase MB Relative Index 2.2 Troponin I < 0.30 ng/mL (<=0.30) Pro-B-Type Natriuretic Peptide 754 pg/mL (0-125) Total Protein 6.7 g/dL (6.6-8.7) Albumin 3.3 g/dL (3.5-5.2) Globulin 3.4 g/dL Albumin/Globulin Ratio 0.9 (1.0-2.7) Arterial Blood pH 7.440 (7.350-7.450) Arterial Blood Partial Pressure CO2 33.2 mmHg (35.0-45.0) Arterial Blood Partial Pressure O2 392.5 mmHg (75.0-100.0) Arterial Blood HCO3 22.1 mmol/L (22.0-26.0) Arterial Blood Oxygen Saturation 99.2 % (92.0-98.0) Arterial Blood Base Excess -1.5 Julio Test Positive Urine Color Mireya Urine Appearance Very cloudy Urine pH 5 (4.5-8.0) Urine Specific [place] 1.020 (1.005-1.035) Urine Protein 3+ (NEGATIVE) Urine Glucose (UA) Negative (NEGATIVE) Urine Ketones 1+ (NEGATIVE) Urine Occult Blood 5+ (NEGATIVE) Urine Nitrite Positive (NEGATIVE) Urine Bilirubin Negative (NEGATIVE) Urine Ictotest Negative Urine Urobilinogen 4 MG/DL (0.0-1.0) Urine Leukocyte Esterase 3+ (NEGATIVE) Urine RBC Tntc /HPF (0 - 0) Urine WBC 10-15 /HPF (0 - 0) Urine Squamous Epithelial Cells Few /LPF (NONE/OCC) Urine Bacteria Moderate /HPF (NONE) Lactic Acid Level 4.70 mmol/L (0.66-2.22) Chest X-Ray Diagnostic Results EP Interpretation: Yes Findings: other - marked bilateral infiltrate/effusion Number of Views: 1 Last Vital Signs Date Time Temp Pulse Resp B/P Pulse Ox O2 Delivery O2 Flow Rate FiO2 08/05/16 20:47 99.1 135 38 145/96 98 60 08/05/16 20:40 Full Face Status: unchanged Disposition: ADMITTED INPATIENT Condition: Critical Referrals: BARBRA BRYANT (PCP) Patricio Pacheco Aug 05, 2016 21:21
[2016-08-05] MEDS: Heparin 5000 units/ml inj SUBQ SCH (22:00)
[2016-08-05] MEDS: LORazepam Inj 2mg/ml 1ml IV PRN (23:19)
[2016-08-06] VITALS (9 sets, daily range): BP systolic 93–147; BP diastolic 51–96
[2016-08-06] MEDS: LORazepam Inj 2mg/ml 1ml IV PRN ×3 (03:17→23:50)
[2016-08-06 05:50] LABS: MEAN CORPUSCULAR HEMOGLOBIN 30.1 PG (27.0-31.0); MEAN CORPUSCULAR HGB CONC 32.8 G/DL (32.0-36.0); MEAN CORPUSCULAR VOLUME 92 FL (80-99); MEAN PLATELET VOLUME 8.7 FL (6.5-10.1); PLATELET COUNT 102 K/UL (150-450); RED BLOOD COUNT 2.97 M/UL (4.70-6.10); RED CELL DISTRIBUTION WIDTH 14.2 % (11.6-14.8)
[2016-08-06 05:54] LABS: WHITE BLOOD COUNT 23.5 K/UL (4.8-10.8)
[2016-08-06 06:27] LABS: CREATININE 1.9 mg/dL (0.7-1.2); GLOMERULAR FILTRATION RATE 35.8 mL/min (>60); PHOSPHORUS 4.7 mg/dL (2.5-4.8); POTASSIUM 5.1 mEQ/L (3.4-4.9)
[2016-08-06 06:30] LABS: REFLEX LACTIC ACID YES OR NO YES
[2016-08-06] MEDS: Heparin 5000 units/ml inj SUBQ SCH ×2 (08:37→21:00)
[2016-08-06 09:02] LABS: BAND NEUTROPHILS % (MANUAL) 2 % (0-8); BASOPHILS % (MANUAL) 0 % (0-2); EOSINOPHILS % (MANUAL) 0 % (0-3); LYMPHOCYTES % (MANUAL) 6 % (20-45); NEUTROPHILS % (MANUAL) 85 % (45-75); PLATELET ESTIMATE DECREASED; TOTAL CELLS COUNTED 100
[2016-08-06 09:10] LABS: ANISOCYTOSIS 1+; HYPOCHROMASIA 2+; PLATELET MORPHOLOGY NORMAL
--- NOTE | 2016-08-06 11:27 | Diagnostic Imaging Report ---
Indication: Dyspnea Comparison: 08/01/16 A single view chest radiograph was obtained. Findings: Diffuse infiltrates versus pulmonary edema demonstrated once again. There is a left pleural effusion. Impression: No change compared to the previous examination. Diffuse infiltrates versus pulmonary edema.
--- NOTE | 2016-08-06 12:04 | History and Physical ---
History of Present Illness General Date patient seen: Aug 06, 2016 Reason for Hospitalization: Dyspnea/Respdistress Present Illness HPI 66-year-old male with hx of recurrent malignant pleural effusion, metastatic [place] [facility]. Patient was brought in by ambulance on a continuous positive airway pressure. The patient was on supplemental oxygen. Patient was noted to have a fever. He was diagnosed to have respiratory failure, sepsis, pneumonia and admitted to [facility] on [facility]. Currently the patient is awake, comfortable on BIPAP. Patients brother is at [facility] as well who is requesting transfer to [place]. Allergies: Coded Allergies: No Known Allergies (Unverified , 07/20/16) Medication History Scheduled Amlodipine Besylate* (Amlodipine Besylate*), 5 MG ORAL DAILY, (Reported) Benzonatate* (Benzonatate*), 100 MG ORAL Q8HR, (Reported) Lorazepam* (Lorazepam*), 0.5 MG ORAL EVERY 4 HOURS, (Reported) Omeprazole (Omeprazole), 20 MG ORAL DAILY, (Reported) Polyethylene Glycol* (Miralax*), 17 GM ORAL PRN, (Reported) Prednisone* (Prednisone*), 5 MG ORAL DAILY, (Reported) Temazepam* (Restoril*), 7.5 MG ORAL BEDTIME, (Reported) Theophylline (Theodur*), 100 MG ORAL TWICE A DAY, (Reported) Ziprasidone Hcl* (Geodon*), 20 MG ORAL TWICE A DAY, (Reported) Scheduled PRN Hydrocodone Bit/Acetaminophen 5-325* (Rumsey 5-325*), 1 TAB ORAL Q6H PRN for For Pain, (Reported) Ondansetron* (Zofran*), 4 MG ORAL Q6H PRN for Nausea & Vomiting, (Reported) Zolpidem Tartrate* (Ambien*), 5 MG ORAL BEDTIME PRN for Insomnia, (Reported) Miscellaneous Medications Prednisolone, Micronized (Prednisolone), 5 GM MC, (Reported) Discontinued Medications Ciprofloxacin Hcl (Ciprofloxacin Hcl*), 500 MG ORAL BID, (Reported) Discontinued Reason: MD discontinued med Patient History Healthcare decision maker Resuscitation status Full Code Advanced Directive on File Past Medical/Surgical History Past Medical/Surgical History: (1) Metastatic adenocarcinoma (2) Severe protein-calorie malnutrition (3) Bladder cancer Review of Systems Constitutional: Reports: malaise, weakness Respiratory: Reports: CANCINO, shortness of breath All Other Systems: negative except mentioned in HPI Physical Exam General Appearance: cachetic Lines, tubes and drains: peripheral, central line HEENT: normocephalic, atraumatic Neck: non-tender, normal alignment Respiratory/Chest: chest wall non-tender, lungs clear Cardiovascular/Chest: normal peripheral pulses, normal rate Genitourinary/Rectal: normal genital exam, normal rectal exam Extremities: normal range of motion, normal inspection Neurologic: roll cutter II-XII grossly normal Last 24 Hour Vital Signs Date Time Temp Pulse Resp B/P Pulse Ox O2 Delivery O2 Flow Rate FiO2 08/06/16 11:05 136 46 98 Full Face 60 08/06/16 09:06 139 44 100 Full Face 70 08/06/16 08:38 139 08/06/16 08:37 98.2 139 31 142/88 94 Bi-pap 08/06/16 08:11 40 08/06/16 06:55 138 43 92 Full Face 60 08/06/16 04:39 142 26 92 Full Face 60 08/06/16 04:00 60 08/06/16 04:00 97.9 138 21 120/54 94 Bi-pap 08/06/16 04:00 40 08/06/16 03:30 127 29 95 Full Face 60 08/06/16 01:18 136 30 100 Full Face 60 08/06/16 00:00 97.9 136 24 127/75 100 Bi-pap 08/06/16 00:00 138 08/06/16 00:00 40 08/05/16 23:16 142 43 89 Full Face 100 08/05/16 22:00 40 08/05/16 22:00 40 08/05/16 21:12 99.1 135 38 145/96 98 60 08/05/16 21:00 96.3 141 39 157/102 80 Bi-pap 40 08/05/16 20:47 99.1 135 38 145/96 98 60 08/05/16 20:40 138 43 92 Full Face 40 08/05/16 20:10 99.1 08/05/16 19:24 100.1 131 36 131/92 98 Bi-pap 40 08/05/16 19:00 137 23 92 Full Face 40 08/05/16 18:28 40 08/05/16 18:25 138 32 Bi-pap 40 08/05/16 18:20 100.8 141 41 110/78 100 Bi-pap 40 08/05/16 17:05 98.8 152 42 107/81 100 Bi-pap 100 08/05/16 17:02 158 42 Bi-pap 100 08/05/16 17:02 158 42 100 Full Face 100 08/05/16 17:01 145 44 122/82 94 Bi-pap Intake and Output 08/05/16 08/06/16 19:00 07:00 Intake Total 1200 ml 1864 ml Output Total 100 ml 180 ml Balance 1100 ml 1684 ml Intake IV Total 600 ml 1864 ml Other 600 ml Output Urine Total 100 ml 180 ml # Voids 1 # Bowel Movements 1 Laboratory Tests Test 08/05/16 16:55 08/05/16 17:40 08/05/16 18:11 08/05/16 20:10 White Blood Count 21.8 K/UL (4.8-10.8) H Red Blood Count 3.71 M/UL (4.70-6.10) L Hemoglobin 11.0 G/DL (14.2-18.0) L Hematocrit 33.5 % (42.0-52.0) L Mean Corpuscular Volume 90 FL (80-99) Mean Corpuscular Hemoglobin 29.8 PG (27.0-31.0) Mean Corpuscular Hemoglobin Concent 32.9 G/DL (32.0-36.0) Red Cell Distribution Width 14.3 % (11.6-14.8) Platelet Count 137 K/UL (150-450) L Mean Platelet Volume 8.9 FL (6.5-10.1) Neutrophils (%) (Auto) % (45.0-75.0) Lymphocytes (%) (Auto) % (20.0-45.0) Monocytes (%) (Auto) % (1.0-10.0) Eosinophils (%) (Auto) % (0.0-3.0) Basophils (%) (Auto) % (0.0-2.0) Differential Total Cells Counted 100 Neutrophils % (Manual) 85 % (45-75) H Lymphocytes % (Manual) 12 % (20-45) L Monocytes % (Manual) 3 % (1-10) Eosinophils % (Manual) 0 % (0-3) Basophils % (Manual) 0 % (0-2) Band Neutrophils 0 % (0-8) Platelet Estimate Decreased L Platelet Morphology Normal Red Blood Cell Morphology Normal Hypochromasia 1+ Sodium Level 138 mEQ/L (135-145) Potassium Level 4.6 mEQ/L (3.4-4.9) Chloride Level 90 mEQ/L (98-107) L Carbon Dioxide Level 22 mEQ/L (20-30) Anion Gap 26 (5-15) H Blood Urea Nitrogen 51 mg/dL (7-23) H Creatinine 1.7 mg/dL (0.7-1.2) H Estimat Glomerular Filtration Rate 40.7 mL/min (>60) Glucose Level 189 mg/dL (74-106) H Lactic Acid Level 8.50 mmol/L (0.66-2.22) H 4.70 mmol/L (0.66-2.22) H Calcium Level 9.0 mg/dL (8.6-10.2) Phosphorus Level 4.5 mg/dL (2.5-4.8) Magnesium Level 2.4 mg/dL (1.7-2.5) Total Bilirubin 0.8 mg/dL (0.0-1.2) Aspartate Amino Transf (AST/SGOT) 38 U/L (5-40) Alanine Aminotransferase (ALT/SGPT) 20 U/L (3-41) Alkaline Phosphatase 1763 U/L (40-129) H Total Creatine Kinase 98 U/L (38-174) Creatine Kinase MB 2.2 ng/mL (< 6.7) Creatine Kinase MB Relative Index 2.2 Troponin I < 0.30 ng/mL (<=0.30) Pro-B-Type Natriuretic Peptide 754 pg/mL (0-125) H Total Protein 6.7 g/dL (6.6-8.7) Albumin 3.3 g/dL (3.5-5.2) L Globulin 3.4 g/dL Albumin/Globulin Ratio 0.9 (1.0-2.7) L Arterial Blood pH 7.440 (7.350-7.450) Arterial Blood Partial Pressure CO2 33.2 mmHg (35.0-45.0) L Arterial Blood Partial Pressure O2 392.5 mmHg (75.0-100.0) H Arterial Blood HCO3 22.1 mmol/L (22.0-26.0) Arterial Blood Oxygen Saturation 99.2 % (92.0-98.0) H Arterial Blood Base Excess -1.5 Julio Test Positive Urine Color Mireya Urine Appearance Very cloudy Urine pH 5 (4.5-8.0) Urine Specific [place] 1.020 (1.005-1.035) Urine Protein 3+ (NEGATIVE) H Urine Glucose (UA) Negative (NEGATIVE) Urine Ketones 1+ (NEGATIVE) H Urine Occult Blood 5+ (NEGATIVE) H Urine Nitrite Positive (NEGATIVE) H Urine Bilirubin Negative (NEGATIVE) Urine Ictotest Negative Urine Urobilinogen 4 MG/DL (0.0-1.0) H Urine Leukocyte Esterase 3+ (NEGATIVE) H Urine RBC Tntc /HPF (0 - 0) H Urine WBC 10-15 /HPF (0 - 0) H Urine Squamous Epithelial Cells Few /LPF (NONE/OCC) Urine Bacteria Moderate /HPF (NONE) H Test 08/06/16 03:20 White Blood Count 23.5 K/UL (4.8-10.8) *H Red Blood Count 2.97 M/UL (4.70-6.10) L Hemoglobin 8.9 G/DL (14.2-18.0) L Hematocrit 27.3 % (42.0-52.0) L Mean Corpuscular Volume 92 FL (80-99) Mean Corpuscular Hemoglobin 30.1 PG (27.0-31.0) Mean Corpuscular Hemoglobin Concent 32.8 G/DL (32.0-36.0) Red Cell Distribution Width 14.2 % (11.6-14.8) Platelet Count 102 K/UL (150-450) L Mean Platelet Volume 8.7 FL (6.5-10.1) Neutrophils (%) (Auto) % (45.0-75.0) Lymphocytes (%) (Auto) % (20.0-45.0) Monocytes (%) (Auto) % (1.0-10.0) Eosinophils (%) (Auto) % (0.0-3.0) Basophils (%) (Auto) % (0.0-2.0) Differential Total Cells Counted 100 Neutrophils % (Manual) 85 % (45-75) H Lymphocytes % (Manual) 6 % (20-45) L Monocytes % (Manual) 7 % (1-10) Eosinophils % (Manual) 0 % (0-3) Basophils % (Manual) 0 % (0-2) Band Neutrophils 2 % (0-8) Platelet Estimate Decreased L Platelet Morphology Normal Hypochromasia 2+ Anisocytosis 1+ Sodium Level 139 mEQ/L (135-145) Potassium Level 5.1 mEQ/L (3.4-4.9) H Chloride Level 96 mEQ/L (98-107) L Carbon Dioxide Level 25 mEQ/L (20-30) Anion Gap 18 (5-15) H Blood Urea Nitrogen 62 mg/dL (7-23) H Creatinine 1.9 mg/dL (0.7-1.2) H Estimat Glomerular Filtration Rate 35.8 mL/min (>60) Glucose Level 134 mg/dL (74-106) H Lactic Acid Level 2.60 mmol/L (0.66-2.22) H Calcium Level 8.0 mg/dL (8.6-10.2) L Phosphorus Level 4.7 mg/dL (2.5-4.8) Albumin 2.8 g/dL (3.5-5.2) L Microbiology Date/Time Source Procedure Growth Status 08/05/16 18:11 Urine,Clean Catch Urine Culture - Preliminary NO GROWTH Resulted Height (Feet): 5 Height (Inches): 7.00 Weight (Pounds): 162 Medications Current Medications Medications (Trade) Dose Ordered Sig/Scot Route PRN Reason Start Time Stop Time Status Last Admin Dose Admin Acetaminophen (Tylenol) 650 mg Q4H PRN ORAL FEVER 08/05/16 18:45 09/04/16 18:44 Albuterol/ Ipratropium 3 ml 3 ml EVERY 4 HOURS PRN HHN Shortness of Breath 08/05/16 18:45 08/10/16 18:44 Cefepime HCl 2 gm/ Sodium Chloride 100 ml @ 100 mls/hr Q24H IV 08/05/16 23:00 08/12/16 22:59 08/05/16 23:10 Dextrose (Dextrose 50%) STAT PRN IV Hypoglycemia 08/05/16 18:45 09/04/16 18:44 Heparin Sodium (Porcine) (Heparin 5000 units/ml) 5,000 units EVERY 12 HOURS SUBQ 08/05/16 22:00 09/04/16 21:59 Lorazepam (Ativan 2mg/ml 1ml) 2 mg EVERY 2 HOURS PRN IV For Anxiety 08/05/16 18:45 08/12/16 18:44 08/06/16 03:17 Morphine Sulfate (Morphine Sulfate) 4 mg EVERY 4 HOURS PRN IVP Severe Pain (Pain Scale 7-10) 08/05/16 18:45 08/12/16 18:44 Ondansetron HCl (Zofran) 4 mg Q6H PRN IVP Nausea & Vomiting 08/05/16 18:45 09/04/16 18:44 Polyethylene Glycol (Miralax) 17 gm DAILYPRN PRN ORAL Constipation 08/05/16 18:45 09/04/16 18:44 Sodium Chloride (0.45% NS 1000ml) 1,000 ml @ 50 mls/hr Q20H IV 08/05/16 22:50 09/04/16 22:49 08/05/16 22:23 Vancomycin HCl/ Dextrose (Vancomycin/D5W 250ml) 250 ml @ 167 mls/hr Q24H IVPB 08/05/16 23:30 08/10/16 23:29 08/05/16 23:11 Assessment/Plan Problem List: (1) Acute hypoxemic respiratory failure ICD Codes: J96.01 - Acute respiratory failure with hypoxia SNOMED: 693721249 (2) Sepsis ICD Codes: A41.9 - Sepsis, unspecified organism SNOMED: 17780861 (3) Malignant pleural effusion ICD Codes: J91.0 - Malignant pleural effusion SNOMED: 84735403 (4) Severe protein-calorie malnutrition ICD Codes: E43 - Unspecified severe protein-calorie malnutrition SNOMED: 782282659 (5) Bladder cancer ICD Codes: C67.9 - Malignant neoplasm of bladder, unspecified SNOMED: 297846504 (6) Metastatic adenocarcinoma ICD Codes: C79.9 - Secondary malignant neoplasm of unspecified site SNOMED: 2338113, 683116021 Assessment/Plan continue BIPAP titrate fio2 check sputum IV antibiotics family meeting about plan of care. nutrition evaluation ok to transfer to [place] on BIPAP BARBRA CARDENAS Aug 06, 2016 12:04
--- NOTE | 2016-08-06 14:44 | Consultation ---
Consult Note Consult Note ID CONSULT: Daija# [id number] Assessment/Plan ASSESSMENT: 66 y/o male with: // Possible HCAP - SCx pending - CXR: Diffuse infiltrates versus pulmonary edema, unchanged // Possible UTI - UCx NGTD // Severe sepsis - improving lactic acidosis // Leukocytosis - persistent, worsening ( malignancy contributing ) // Low grade fever ( malignancy contributing ) // Acute hypoxic respiratory failure / BiPAP // Recurrent malignant pleural effusion - [facility] thoracentesis 08/01 - Cx(-), cytology(+) adenocarcinoma // ARF on CKD3 - worse // Metastatic adenoCA // Elevated ALP ?bone mets // Thrombocytopenia // NKDA // Full Code PLAN: - continue empiric IV vancomycin, cefepime d# -10 - f/u cultures - monitor CBC, temperatures - monitor BMP - monitor CXR - BiPAP prn - possible transfer [facility] Thanks! Will follow LILLIAM NG Aug 06, 2016 14:44
[2016-08-06] MEDS ORDERED: Tubing IV Secondary IV ONE (16:22)
[2016-08-06 18:49] LABS: ABG ALLEN TEST POSITIVE; ABG BASE EXCESS -3.4; ABG PCO2 88.5 mmHg (35.0-45.0)
[2016-08-06] MEDS: Morphine Sulfate 4mg/ml Inj IVP PRN (22:06)
[2016-08-06 22:12] LABS: ABG BASE EXCESS -3.7; ABG PCO2 51.1 mmHg (35.0-45.0)
[2016-08-06 22:12] LABS: REFLEX LACTIC ACID YES OR NO YES
[2016-08-06 22:13] LABS: ABG ALLEN TEST POSITIVE
--- NOTE | 2016-08-06 22:57 | Consultation ---
DATE OF CONSULTATION: 08/06/2016 INFECTIOUS DISEASE CONSULTATION CONSULTING PHYSICIAN: Fortunato Lyle M.D. REQUESTING PHYSICIAN: Johnny Salas M.D. REASON FOR CONSULTATION: Severe sepsis. HISTORY OF PRESENT ILLNESS: This is a 66-year-old male with widely metastatic cancer admitted from the detention on 08/05/2016 with acute respiratory distress requiring BiPAP. Chest x-ray shows diffuse bilateral infiltrates versus edema and left-sided pleural effusion. He meets severe sepsis criteria. White blood cell count is worsening. Fevers are improved. Urinalysis suggests possible urinary tract infection. Urine culture is no growth to date. Blood cultures and sputum cultures are pending. He has been started on empiric vancomycin and cefepime and ID now consulted to assist in management. PAST MEDICAL HISTORY: 1. Hypertension. 2. Recurrent malignant pleural effusion. 3. Metastatic cancer. PAST SURGICAL HISTORY: Thoracentesis. MEDICATIONS: 1. Vancomycin. 2. Cefepime. 3. Subcutaneous heparin. ALLERGIES: No known drug allergies. SOCIAL HISTORY: The patient is a detention resident in part of the [place] [facility]. No active tobacco, alcohol, illicit, or drug abuse. FAMILY HISTORY: Noncontributory. REVIEW OF SYSTEMS: As per history of present illness. Ten systems reviewed. All pertinent positives and negatives noted. PHYSICAL EXAMINATION: GENERAL: Moderate respiratory distress. VITAL SIGNS: Maximum temperature 100.8 degrees, blood pressure 128/96, heart rate in the 130s, respiratory rate in the 40s, and saturating 95% on BiPAP and 50% FiO2. HEENT: BiPAP mask in place. CARDIOVASCULAR: Tachycardic and regular. PULMONARY: Labored respirations and tachypneic. ABDOMEN: Bowel sounds present. Soft, nondistended, and nontender. EXTREMITIES: No edema. SKIN: No rash. LABORATORY DATA: White blood cell count 22.5, increased from 21.8 with a left shift, hemoglobin 8.9, decreased from 11, and platelets 102,000. Sodium 139, potassium 5.1, chloride 96, bicarbonate 25, BUN 67, and creatinine 1.9, increased from 1.7. Lactic acid 2.6, decreased from 8.5. Troponin negative x1. AST 38, ALT 20, and alkaline phosphatase 1763. Total bilirubin 0.8. Albumin 3.3. MICROBIOLOGY: 1. On 08/05/2016, urine culture, no growth to date. 2. On 08/05/2016, blood culture pending. 3. On 08/05/2016, sputum culture pending. 4. On 08/01/2016, urine culture negative. 5. On 08/01/2016, pleural fluid culture, negative. IMAGIN. On 08/06/2016, bilateral lower extremity Doppler ultrasound, negative for DVT. 2. On 08/05/2016, chest x-ray, diffuse bilateral infiltrates versus edema and left-sided pleural effusion. ASSESSMENT: 1. Possible healthcare-associated pneumonia. Sputum culture is pending. Chest x-ray shows diffuse infiltrates versus pulmonary edema, unchanged from previous. 2. Possible urinary tract infection. Urine cultures, no growth to date. 3. Severe sepsis with improving lactic acidosis. 4. Leukocytosis, persistent and worsening. Malignancy is contributing. 5. Low-grade fever, malignancy contributing. 6. Acute hypoxic respiratory failure/BiPAP. 7. Recurrent malignant pleural effusion. 8. Acute renal failure on chronic kidney disease stage 3, worsening. 9. Metastatic adenocarcinoma. 10. Elevated alkaline phosphatase, question bone metastasis. 11. Thrombocytopenia. 12. No known drug allergies. 13. Full Code. PLAN: 1. Continue empiric IV vancomycin and cefepime day # 1, 7 to 10. 2. Follow up cultures. 3. Monitor CBC and temperatures. 4. Monitor BMP. 5. Monitor chest x-ray. 6. BiPAP as needed. 7. [facility] Thank you. We will follow. Fortunato Lyle M.D. DR: ALVARO JOB#: [id number] CC: Freddy Daly M.D. Arash Alborzi, M.D
--- NOTE | 2016-08-06 23:45 | Emergency Room Report ---
History of Present Illness General Chief Complaint: Dyspnea/Respdistress Source: Patient, EMS Present Illness Allergies: Coded Allergies: No Known Allergies (Unverified , 07/20/16) Nursing Documentation-[facility] Past Medical History: No History, Except For Hx Cardiac Problems: Yes - anemia, coagulopathy Hx Hypertension: Yes Hx Cancer: Yes - bladder cancer, metatatic adenocarcinoma Hx Gastrointestinal Problems: No Hx Neurological Problems: No Physical Exam Vital Signs Date Time Temp Pulse Resp B/P Pulse Ox O2 Delivery O2 Flow Rate FiO2 08/05/16 17:01 145 44 122/82 94 Bi-pap 08/05/16 17:02 100 08/05/16 17:05 98.8 Procedures Intubation Intubation : Consent: Verbal Intubation Method: orotracheal Tube Size (cm): 7.5 Breath Sounds after Intubation: equal Intubation Complications: no complications Post Intubation Xray: Yes Progress/Xray Impression: Appropriate ET placement Attempts: One Patient Tolerated: Well Complications: None Medical Decision Making Diagnostic Impression: Primary Impression: Respiratory failure Additional Impressions: Severe protein-calorie malnutrition Malignant pleural effusion Severe sepsis Bladder cancer ER Course Patient is in the [facility]. The patient primary care physician requested I intubate this patient who has become unresponsive and BiPAP and has a DVT consistent with respiratory failure. See my procedure note. The patient underwent rapid sequence and patient. The patient is nonresponsive and I was able to place the endotracheal tube without paralyzing the patient. There were no complications. Chest x-ray confirmed placement. Last Vital Signs Date Time Temp Pulse Resp B/P Pulse Ox O2 Delivery O2 Flow Rate FiO2 08/06/16 23:00 122 18 105/51 99 Mechanical Ventilator 80 08/06/16 22:30 98.1 Disposition: ADMITTED INPATIENT Condition: Critical Referrals: BARBRA CARDENAS (PCP) ALEXANDRA NEWTON D.O. Aug 06, 2016 23:45
[2016-08-07] VITALS (22 sets, daily range): BP systolic 107–162; BP diastolic 59–116
[2016-08-07] MEDS ORDERED: DuoNeb 0.5-3(2.5)mg/3ml neb HHN PRN (01:00)
[2016-08-07] MEDS: Morphine Sulfate 4mg/ml Inj IVP PRN ×3 (05:41→19:43)
[2016-08-07] MEDS: LORazepam Inj 2mg/ml 1ml IV PRN ×3 (05:41→22:39)
[2016-08-07 06:17] LABS: MEAN CORPUSCULAR HGB CONC 32.7 G/DL (32.0-36.0); MEAN CORPUSCULAR VOLUME 92 FL (80-99); MEAN PLATELET VOLUME 8.4 FL (6.5-10.1); PLATELET COUNT 96 K/UL (150-450); RED BLOOD COUNT 2.65 M/UL (4.70-6.10); RED CELL DISTRIBUTION WIDTH 14.9 % (11.6-14.8); WHITE BLOOD COUNT 18.8 K/UL (4.8-10.8)
[2016-08-07 06:30] LABS: REFLEX LACTIC ACID YES OR NO YES
[2016-08-07 06:38] LABS: ALBUMIN/GLOBULIN RATIO 0.8 (1.0-2.7); CALCIUM 8.1 mg/dL (8.6-10.2); CREATININE 3.1 mg/dL (0.7-1.2); GLOMERULAR FILTRATION RATE 20.3 mL/min (>60); TOTAL PROTEIN 5.6 g/dL (6.6-8.7)
[2016-08-07 06:56] LABS: POTASSIUM 6.2 mEQ/L (3.4-4.9)
[2016-08-07 07:39] LABS: ABG BASE EXCESS -2.8; ABG PCO2 36.4 mmHg (35.0-45.0)
[2016-08-07] MEDS: Pantoprazole Inj IVP SCH ×2 (08:36→20:42)
[2016-08-07] MEDS: Heparin 5000 units/ml inj SUBQ SCH ×2 (08:38→20:17)
[2016-08-07 08:41] LABS: BAND NEUTROPHILS % (MANUAL) 1 % (0-8); LYMPHOCYTES % (MANUAL) 10 % (20-45); NEUTROPHILS % (MANUAL) 82 % (45-75); NUCLEATED RED BLOOD CELLS 4 /100 WBC; POLYCHROMASIA 1+; TOTAL CELLS COUNTED 100
[2016-08-07 08:42] LABS: ANISOCYTOSIS 1+; HYPOCHROMASIA 1+
[2016-08-07 08:49] LABS: BASOPHILS % (MANUAL) 0 % (0-2); EOSINOPHILS % (MANUAL) 0 % (0-3); PLATELET ESTIMATE DECREASED; PLATELET MORPHOLOGY NORMAL
--- NOTE | 2016-08-07 08:58 | Pulmonolgy Critical Care Note ---
Critical Care - Asmt/Plan Problems: (1) Acute hypoxemic respiratory failure (2) ATN (acute tubular necrosis) (3) Severe sepsis (4) Malignant pleural effusion (5) metatatic adenocarcinoma (6) Severe protein-calorie malnutrition Respiratory: monitor respiratory rate, adjust FIO2 Cardiac: continue to monitor HR/BP Renal: F/U I&O, keep IV fluid, check electrolytes Infectious Disease: check cultures, continue antibiotics Gastrointestinal: start feedings Endocrine: monitor blood sugar, check TSH Hematologic: monitor H/H Neurologic: PRN Ativan Affect: PRN ativan Prophylaxis: Protonix, Heparin Disposition: keep in ICU Notes Reviewed: cardio - called, renal - called, ID - reviewed Discussed with: nurses, consultants, 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 - Objective Last 24 Hour Vital Signs Date Time Temp Pulse Resp B/P Pulse Ox O2 Delivery O2 Flow Rate FiO2 08/07/16 06:57 140 18 155/66 99 Mechanical Ventilator 50 08/07/16 06:48 140 26 50 08/07/16 06:00 140 18 155/66 99 Mechanical Ventilator 80 08/07/16 05:10 132 27 50 08/07/16 05:00 139 18 160/63 99 Mechanical Ventilator 80 08/07/16 04:00 132 08/07/16 04:00 60 08/07/16 04:00 98.0 132 18 123/67 99 Mechanical Ventilator 80 08/07/16 03:30 60 08/07/16 03:13 131 23 60 08/07/16 03:00 127 18 136/63 99 Mechanical Ventilator 80 08/07/16 02:00 130 18 123/74 99 Mechanical Ventilator 80 08/07/16 01:13 130 21 100 08/07/16 01:00 131 18 114/63 99 Mechanical Ventilator 80 08/07/16 00:00 80 08/07/16 00:00 98.1 130 18 107/71 99 Mechanical Ventilator 80 08/07/16 00:00 130 08/06/16 23:00 122 18 105/51 99 Mechanical Ventilator 80 08/06/16 22:43 131 21 100 08/06/16 22:40 80 08/06/16 22:30 98.1 08/06/16 22:00 80 08/06/16 22:00 129 18 135/74 100 Mechanical Ventilator 80 08/06/16 21:05 128 19 100 08/06/16 21:00 120 20 108/79 100 Mechanical Ventilator 100 08/06/16 20:00 125 08/06/16 20:00 98.1 122 22 93/53 100 Mechanical Ventilator 100 08/06/16 19:15 129 19 100 08/06/16 19:15 100 08/06/16 18:52 127 34 90 Full Face 100 08/06/16 17:13 133 37 96 Full Face 75 08/06/16 16:20 97.0 08/06/16 16:00 65 08/06/16 16:00 130 08/06/16 16:00 97.0 140 37 147/95 99 Bi-pap 75 08/06/16 14:40 136 40 96 Full Face 65 08/06/16 13:09 133 47 95 Full Face 50 08/06/16 12:10 40 08/06/16 12:00 97.7 134 38 128/96 96 Bi-pap 60 08/06/16 11:05 136 46 98 Full Face 60 08/06/16 09:06 139 44 100 Full Face 70 Status: sedated Condition: critical HEENT: atraumatic, normocephalic Neck: full ROM Lungs: chest wall tender Heart: HR/BP stable Abdomen: soft Extremities: no C/C/E Decubiti: location Micro: Microbiology Date/Time Source Procedure Growth Status 08/05/16 17:10 Blood Blood Culture - Preliminary NO GROWTH AFTER 24 HOURS Resulted 08/05/16 16:55 Blood Blood Culture - Preliminary NO GROWTH AFTER 24 HOURS Resulted 08/05/16 18:11 Urine,Clean Catch Urine Culture - Preliminary NO GROWTH AFTER 24 HOURS Resulted Critical Care - Subjective ROS Limited/Unobtainable: Yes ICU Day: 2 Intubation Day: 2 Interval Events: became obtundent, respiratory status worsened, needed to be intubated and transferred to ICU. Condition: critical EKG Rhythm: Sinus Rhythm FI02: 50 Vent Support Breath Rate: 18 Vent Support Mode: AC Vent Tidal Volume: 600 Sputum Amount: Scant PEEP: 5.0 PIP: 39 Fluids: 1/2 NS 50 cc.hour I&O: Intake and Output 08/06/16 08/07/16 19:00 07:00 Intake Total 500 ml 900 ml Output Total 300 ml 265 ml Balance 200 ml 635 ml Intake IV Total 500 ml 900 ml Output Urine Total 300 ml 265 ml # Bowel Movements 1 CXR: bilateral interstitial infiltrate, pleural effusion ET-Tube: 7.5 ET Position: 24 Labs: Laboratory Tests Test 08/06/16 18:40 08/06/16 21:15 08/06/16 22:05 08/07/16 05:15 Arterial Blood pH 7.105 (7.350-7.450) 7.273 (7.350-7.450) Arterial Blood Partial Pressure CO2 88.5 mmHg (35.0-45.0) *H 51.1 mmHg (35.0-45.0) H Arterial Blood Partial Pressure O2 68.7 mmHg (75.0-100.0) L 441.8 mmHg (75.0-100.0) H Arterial Blood HCO3 27.2 mmol/L (22.0-26.0) H 23.1 mmol/L (22.0-26.0) Arterial Blood Oxygen Saturation 85.3 % (92.0-98.0) L 99.5 % (92.0-98.0) H Arterial Blood Base Excess -3.4 -3.7 Julio Test Positive Positive Lactic Acid Level 3.10 mmol/L (0.66-2.22) H 3.50 mmol/L (0.66-2.22) H White Blood Count 18.8 K/UL (4.8-10.8) H Red Blood Count 2.65 M/UL (4.70-6.10) L Hemoglobin 7.9 G/DL (14.2-18.0) L Hematocrit 24.3 % (42.0-52.0) L Mean Corpuscular Volume 92 FL (80-99) Mean Corpuscular Hemoglobin 30.0 PG (27.0-31.0) Mean Corpuscular Hemoglobin Concent 32.7 G/DL (32.0-36.0) Red Cell Distribution Width 14.9 % (11.6-14.8) H Platelet Count 96 K/UL (150-450) L Mean Platelet Volume 8.4 FL (6.5-10.1) Neutrophils (%) (Auto) % (45.0-75.0) Lymphocytes (%) (Auto) % (20.0-45.0) Monocytes (%) (Auto) % (1.0-10.0) Eosinophils (%) (Auto) % (0.0-3.0) Basophils (%) (Auto) % (0.0-2.0) Differential Total Cells Counted 100 Neutrophils % (Manual) 82 % (45-75) H Lymphocytes % (Manual) 10 % (20-45) L Monocytes % (Manual) 7 % (1-10) Eosinophils % (Manual) 0 % (0-3) Basophils % (Manual) 0 % (0-2) Band Neutrophils 1 % (0-8) Nucleated Red Blood Cells 4 /100 WBC Platelet Estimate Decreased L Platelet Morphology Normal Polychromasia 1+ Hypochromasia 1+ Anisocytosis 1+ Sodium Level 140 mEQ/L (135-145) Potassium Level 6.2 mEQ/L (3.4-4.9) *H Chloride Level 97 mEQ/L (98-107) L Carbon Dioxide Level 22 mEQ/L (20-30) Anion Gap 21 (5-15) H Blood Urea Nitrogen 94 mg/dL (7-23) #H Creatinine 3.1 mg/dL (0.7-1.2) #H Estimat Glomerular Filtration Rate 20.3 mL/min (>60) Glucose Level 124 mg/dL (74-106) H Calcium Level 8.1 mg/dL (8.6-10.2) L Total Bilirubin 0.5 mg/dL (0.0-1.2) Aspartate Amino Transf (AST/SGOT) 157 U/L (5-40) H Alanine Aminotransferase (ALT/SGPT) 68 U/L (3-41) H Alkaline Phosphatase 1300 U/L (40-129) H Total Protein 5.6 g/dL (6.6-8.7) L Albumin 2.5 g/dL (3.5-5.2) L Globulin 3.1 g/dL Albumin/Globulin Ratio 0.8 (1.0-2.7) L Test 08/07/16 07:10 08/07/16 07:26 Lactic Acid Level 3.40 mmol/L (0.66-2.22) H Arterial Blood pH 7.400 (7.350-7.450) Arterial Blood Partial Pressure CO2 36.4 mmHg (35.0-45.0) Arterial Blood Partial Pressure O2 130.0 mmHg (75.0-100.0) H Arterial Blood HCO3 21.8 mmol/L (22.0-26.0) L Arterial Blood Oxygen Saturation 98.0 % (92.0-98.0) Arterial Blood Base Excess -2.8 Julio Test BARBRA CARDENAS Aug 07, 2016 08:58
[2016-08-07] MEDS ORDERED: Sodium Polystyrene Sulfonate 15gm Powder ORAL ONE (09:00)
[2016-08-07] MEDS ORDERED: Calcium Gluconate 1gm/10ml vial IVP ONE (09:15)
--- NOTE | 2016-08-07 09:31 | Diagnostic Imaging Report ---
Indications: Intubation Technique: Portable AP chest Findings: Comparison: 08/05/2016 Endotracheal tube has been placed, tip 7 cm above oly. Nasogastric tube has been placed, tip off the edge of image, below diaphragm. Diffuse bilateral mixed interstitial and alveolar infiltrates, large left and small right pleural effusions are unchanged. Visualized portions of cardiomediastinal silhouette stable. IMPRESSION: High position of endotracheal tube, recommend advancement 3 cm Naso-gastric tube likely within stomach No other change from one day prior This correlates with Dr. Craig's preliminary report.
[2016-08-07 10:41] LABS: INR 1.4 (0.9-1.1)
[2016-08-07 10:46] LABS: ALANINE AMINOTRANSFERASE 84 U/L (3-41); ALBUMIN/GLOBULIN RATIO 0.8 (1.0-2.7); ANION GAP 20 (5-15); ASPARTATE AMINO TRANSFERASE 218 U/L (5-40); CALCIUM 7.7 mg/dL (8.6-10.2); CARBON DIOXIDE 21 mEQ/L (20-30); CHLORIDE 98 mEQ/L (98-107); CREATININE 3.4 mg/dL (0.7-1.2); GLOMERULAR FILTRATION RATE 18.3 mL/min (>60); HEMOLYSIS 2; MAGNESIUM 2.4 mg/dL (1.7-2.5); PHOSPHORUS 4.8 mg/dL (2.5-4.8); POTASSIUM 5.8 mEQ/L (3.4-4.9); SODIUM 139 mEQ/L (135-145); TOTAL PROTEIN 5.5 g/dL (6.6-8.7); URIC ACID 14.3 mg/dL (3.0-7.5)
[2016-08-07 10:50] LABS: LACTATE DEHYDROGENASE 735 U/L (135-230)
[2016-08-07 10:52] LABS: APPEARANCE,URINE SLIGHTLY CLOUDY; KETONES,URINE 1+ (NEGATIVE); LEUKOCYTE ESTERASE ,URINE 3+ (NEGATIVE); NITRITE,URINE NEGATIVE (NEGATIVE); PH,URINE 5 (4.5-8.0); PROTEIN,URINE 3+ (NEGATIVE); UROBILINOGEN,URINE NORMAL MG/DL (0.0-1.0)
[2016-08-07 10:58] LABS: FREE T3 0.7 pg/mL (2.3-4.2); HEMOLYSIS 3; IRON 108 ug/dL (59-158); TOTAL IRON BINDING CAPACITY 193 ug/dL (250-400)
[2016-08-07 11:17] LABS: BACTERIA,URINE FEW /HPF; RBC,URINE 30-40 /HPF (0 - 0); SQUAMOUS EPITHELIAL CELL,UR OCCASIONAL /LPF (NONE/OCC)
[2016-08-07 11:19] LABS: PATH BLOOD SMEAR/OMC SENT TO PATHOLOGIST
[2016-08-07 11:38] LABS: CORTISOL 158.2 ug/dL
[2016-08-07 12:07] LABS: ERYTHROCYTE SEDIMENTATION RATE 70 MM/HR (0-20); RETICULOCYTE COUNT 2.7 % (0.0-2.0)
--- NOTE | 2016-08-07 14:08 | Infectious Diseases Prog Note ---
Assessment/Plan Assessment/Plan ASSESSMENT: 66 y/o male with: // Possible HCAP - SCx pending - CXR 08/06: Diffuse bilateral mixed interstitial and alveolar infiltrates, large left and small right pleural effusions are unchanged // Possible UTI - UCx NGTD // Severe sepsis - improving lactic acidosis // Leukocytosis - persistent, improved ( malignancy contributing ) // Low grade fever - persistent ( malignancy contributing ) // Acute VDRF - intubated 08/06 // Recurrent malignant pleural effusion - SP thoracentesis 08/01 - Cx(-), cytology(+) adenocarcinoma // ARF on CKD3 - worse // Metastatic adenoCA // Elevated ALP ?bone mets // Thrombocytopenia // VRE colonized // NKDA // Full Code PLAN: - continue empiric IV vancomycin, cefepime d# 02-04 - f/u cultures - monitor CBC, temperatures - monitor BMP - monitor CXR - vent support, wean as tolerated - poor overall prognosis, possible comfort care d/w RN Subjective Allergies: Coded Allergies: No Known Allergies (Unverified , 07/20/16) Subjective intubated, transferred to ICU persistent low grade fever family at bedside, plan possible comfort care Objective Vital Signs Last 24 Hour Vital Signs Date Time Temp Pulse Resp B/P Pulse Ox O2 Delivery O2 Flow Rate FiO2 08/07/16 13:00 145 18 126/80 99 Mechanical Ventilator 50 08/07/16 12:50 145 27 50 08/07/16 12:00 146 08/07/16 12:00 100.7 146 18 122/72 99 Mechanical Ventilator 50 08/07/16 12:00 50 08/07/16 11:50 100.9 08/07/16 10:57 152 31 50 08/07/16 09:09 144 30 50 08/07/16 09:00 145 18 162/116 99 Mechanical Ventilator 50 08/07/16 08:00 143 08/07/16 08:00 50 08/07/16 08:00 98.1 143 18 146/74 99 Mechanical Ventilator 50 08/07/16 06:57 140 18 155/66 99 Mechanical Ventilator 50 08/07/16 06:48 140 26 50 08/07/16 06:00 140 18 155/66 99 Mechanical Ventilator 80 08/07/16 05:10 132 27 50 08/07/16 05:00 139 18 160/63 99 Mechanical Ventilator 80 08/07/16 04:00 132 08/07/16 04:00 60 08/07/16 04:00 98.0 132 18 123/67 99 Mechanical Ventilator 80 08/07/16 03:30 60 08/07/16 03:13 131 23 60 08/07/16 03:00 127 18 136/63 99 Mechanical Ventilator 80 08/07/16 02:00 130 18 123/74 99 Mechanical Ventilator 80 08/07/16 01:13 130 21 100 08/07/16 01:00 131 18 114/63 99 Mechanical Ventilator 80 08/07/16 00:00 80 08/07/16 00:00 98.1 130 18 107/71 99 Mechanical Ventilator 80 08/07/16 00:00 130 08/06/16 23:00 122 18 105/51 99 Mechanical Ventilator 80 08/06/16 22:43 131 21 100 08/06/16 22:40 80 08/06/16 22:30 98.1 08/06/16 22:00 80 08/06/16 22:00 129 18 135/74 100 Mechanical Ventilator 80 08/06/16 21:05 128 19 100 08/06/16 21:00 120 20 108/79 100 Mechanical Ventilator 100 08/06/16 20:00 125 08/06/16 20:00 98.1 122 22 93/53 100 Mechanical Ventilator 100 08/06/16 19:15 129 19 100 08/06/16 19:15 100 08/06/16 18:52 127 34 90 Full Face 100 08/06/16 17:13 133 37 96 Full Face 75 08/06/16 16:20 97.0 08/06/16 16:00 65 08/06/16 16:00 130 08/06/16 16:00 97.0 140 37 147/95 99 Bi-pap 75 08/06/16 14:40 136 40 96 Full Face 65 Height (Feet): 5 Height (Inches): 7.00 Weight (Pounds): 162 General Appearance: other - intubated, sedated Respiratory/Chest: decreased breath sounds Cardiovascular: normal rate, regular rhythm Abdomen: normal bowel sounds, soft, non tender, non distended Microbiology Date/Time Source Procedure Growth Status 08/05/16 17:10 Blood Blood Culture - Preliminary NO GROWTH AFTER 24 HOURS Resulted 08/05/16 16:55 Blood Blood Culture - Preliminary NO GROWTH AFTER 24 HOURS Resulted 08/05/16 18:11 Urine,Clean Catch Urine Culture - Preliminary NO GROWTH AFTER 24 HOURS Resulted 08/05/16 19:46 Rectum VRE Culture - Final Enterococcus Faecium - Vre Complete Laboratory Tests Test 08/06/16 18:40 08/06/16 21:15 08/06/16 22:05 08/07/16 05:15 Arterial Blood pH 7.105 (7.350-7.450) 7.273 (7.350-7.450) Arterial Blood Partial Pressure CO2 88.5 mmHg (35.0-45.0) *H 51.1 mmHg (35.0-45.0) H Arterial Blood Partial Pressure O2 68.7 mmHg (75.0-100.0) L 441.8 mmHg (75.0-100.0) H Arterial Blood HCO3 27.2 mmol/L (22.0-26.0) H 23.1 mmol/L (22.0-26.0) Arterial Blood Oxygen Saturation 85.3 % (92.0-98.0) L 99.5 % (92.0-98.0) H Arterial Blood Base Excess -3.4 -3.7 Julio Test Positive Positive Lactic Acid Level 3.10 mmol/L (0.66-2.22) H 3.50 mmol/L (0.66-2.22) H White Blood Count 18.8 K/UL (4.8-10.8) H Red Blood Count 2.65 M/UL (4.70-6.10) L Hemoglobin 7.9 G/DL (14.2-18.0) L Hematocrit 24.3 % (42.0-52.0) L Mean Corpuscular Volume 92 FL (80-99) Mean Corpuscular Hemoglobin 30.0 PG (27.0-31.0) Mean Corpuscular Hemoglobin Concent 32.7 G/DL (32.0-36.0) Red Cell Distribution Width 14.9 % (11.6-14.8) H Platelet Count 96 K/UL (150-450) L Mean Platelet Volume 8.4 FL (6.5-10.1) Neutrophils (%) (Auto) % (45.0-75.0) Lymphocytes (%) (Auto) % (20.0-45.0) Monocytes (%) (Auto) % (1.0-10.0) Eosinophils (%) (Auto) % (0.0-3.0) Basophils (%) (Auto) % (0.0-2.0) Differential Total Cells Counted 100 Neutrophils % (Manual) 82 % (45-75) H Lymphocytes % (Manual) 10 % (20-45) L Monocytes % (Manual) 7 % (1-10) Eosinophils % (Manual) 0 % (0-3) Basophils % (Manual) 0 % (0-2) Band Neutrophils 1 % (0-8) Nucleated Red Blood Cells 4 /100 WBC Platelet Estimate Decreased L Platelet Morphology Normal Polychromasia 1+ Hypochromasia 1+ Anisocytosis 1+ Sodium Level 140 mEQ/L (135-145) Potassium Level 6.2 mEQ/L (3.4-4.9) *H Chloride Level 97 mEQ/L (98-107) L Carbon Dioxide Level 22 mEQ/L (20-30) Anion Gap 21 (5-15) H Blood Urea Nitrogen 94 mg/dL (7-23) #H Creatinine 3.1 mg/dL (0.7-1.2) #H Estimat Glomerular Filtration Rate 20.3 mL/min (>60) Glucose Level 124 mg/dL (74-106) H Calcium Level 8.1 mg/dL (8.6-10.2) L Total Bilirubin 0.5 mg/dL (0.0-1.2) Aspartate Amino Transf (AST/SGOT) 157 U/L (5-40) H Alanine Aminotransferase (ALT/SGPT) 68 U/L (3-41) H Alkaline Phosphatase 1300 U/L (40-129) H Total Protein 5.6 g/dL (6.6-8.7) L Albumin 2.5 g/dL (3.5-5.2) L Globulin 3.1 g/dL Albumin/Globulin Ratio 0.8 (1.0-2.7) L Test 08/07/16 07:10 08/07/16 07:26 08/07/16 10:00 08/07/16 10:10 Lactic Acid Level 3.40 mmol/L (0.66-2.22) H Arterial Blood pH 7.400 (7.350-7.450) Arterial Blood Partial Pressure CO2 36.4 mmHg (35.0-45.0) Arterial Blood Partial Pressure O2 130.0 mmHg (75.0-100.0) H Arterial Blood HCO3 21.8 mmol/L (22.0-26.0) L Arterial Blood Oxygen Saturation 98.0 % (92.0-98.0) Arterial Blood Base Excess -2.8 Julio Test Urine Color Yellow Urine Appearance Slightly cloudy Urine pH 5 (4.5-8.0) Urine Specific [place] 1.020 (1.005-1.035) Urine Protein 3+ (NEGATIVE) H Urine Glucose (UA) 1+ (NEGATIVE) H Urine Ketones 1+ (NEGATIVE) H Urine Occult Blood 5+ (NEGATIVE) H Urine Nitrite Negative (NEGATIVE) Urine Bilirubin Negative (NEGATIVE) Urine Urobilinogen Normal MG/DL (0.0-1.0) Urine Leukocyte Esterase 3+ (NEGATIVE) H Urine RBC 30-40 /HPF (0 - 0) H Urine WBC 2-4 /HPF (0 - 0) Urine Squamous Epithelial Cells Occasional /LPF Urine Bacteria Few /HPF (NONE) Urine Eosinophils None seen Urine Osmolality Pending Urine Random Sodium 45 mmol/L Urine Random Chloride 39 mmol/L Urine Potassium Timed 60 mmol/L Erythrocyte Sedimentation Rate 70 MM/HR (0-20) H Reticulocyte Count 2.7 % (0.0-2.0) H Prothrombin Time 14.0 SEC (9.30-11.50) H Prothromb Time International Ratio 1.4 (0.9-1.1) H Activated Partial Thromboplast Time 34 SEC (23-33) H Sodium Level 139 mEQ/L (135-145) Potassium Level 5.8 mEQ/L (3.4-4.9) H Chloride Level 98 mEQ/L (98-107) Carbon Dioxide Level 21 mEQ/L (20-30) Anion Gap 20 (5-15) H Blood Urea Nitrogen 102 mg/dL (7-23) H Creatinine 3.4 mg/dL (0.7-1.2) H Estimat Glomerular Filtration Rate 18.3 mL/min (>60) Glucose Level 127 mg/dL (74-106) H Osmolality Pending Uric Acid 14.3 mg/dL (3.0-7.5) H Calcium Level 7.7 mg/dL (8.6-10.2) L Phosphorus Level 4.8 mg/dL (2.5-4.8) Magnesium Level 2.4 mg/dL (1.7-2.5) Iron Level 108 ug/dL (59-158) Total Iron Binding Capacity 193 ug/dL (250-400) L Percent Iron Saturation 56 % (15-50) H Unsaturated Iron Binding 85 ug/dL (112-346) L Total Bilirubin 0.5 mg/dL (0.0-1.2) Aspartate Amino Transf (AST/SGOT) 218 U/L (5-40) H Alanine Aminotransferase (ALT/SGPT) 84 U/L (3-41) H Alkaline Phosphatase 1160 U/L (40-129) H Lactate Dehydrogenase 735 U/L (135-230) H Total Creatine Kinase 112 U/L (38-174) Total Protein 5.5 g/dL (6.6-8.7) L Albumin 2.5 g/dL (3.5-5.2) L Globulin 3.0 g/dL Albumin/Globulin Ratio 0.8 (1.0-2.7) L Carcinoembryonic Antigen 458.3 ng/mL H Vitamin B12 Level 1261 pg/mL (211-946) H Folate Pending Thyroid Stimulating Hormone (TSH) 1.340 uIU/mL (0.300-4.500) Free Thyroxine 0.40 ng/dL (0.86-1.85) L Free Triiodothyronine 0.7 pg/mL (2.3-4.2) L Cortisol 158.2 ug/dL Current Medications Medications (Trade) Dose Ordered Sig/Scot Route PRN Reason Start Time Stop Time Status Last Admin Dose Admin Acetaminophen (Tylenol) 650 mg Q4H PRN ORAL FEVER 08/06/16 22:45 09/05/16 22:44 08/07/16 10:51 Albuterol/ Ipratropium (DuoNeb 0.5-3(2.5)mg/3ml) 3 ml EVERY 4 HOURS PRN HHN Shortness of Breath 08/07/16 01:00 08/12/16 00:59 Cefepime HCl 2 gm/ Sodium Chloride 100 ml @ 100 mls/hr Q24H IV 08/06/16 22:00 08/12/16 21:59 08/06/16 22:13 Dextrose (Dextrose 50%) STAT PRN IV Hypoglycemia 08/07/16 18:45 09/06/16 18:44 Heparin Sodium (Porcine) (Heparin 5000 units/ml) 5,000 units EVERY 12 HOURS SUBQ 08/07/16 09:00 09/06/16 08:59 Lorazepam (Ativan 2mg/ml 1ml) 2 mg EVERY 2 HOURS PRN IV For Anxiety 08/06/16 22:00 08/13/16 21:59 08/07/16 10:47 Morphine Sulfate (Morphine Sulfate) 4 mg EVERY 4 HOURS PRN IVP Severe Pain (Pain Scale 7-10) 08/07/16 01:00 08/14/16 00:59 08/07/16 10:48 Ondansetron HCl (Zofran) 4 mg Q6H PRN IVP Nausea & Vomiting 08/07/16 00:45 09/06/16 00:44 Pantoprazole 40 mg 40 mg EVERY 12 HOURS IVP 08/07/16 09:00 09/06/16 08:59 08/07/16 08:36 Polyethylene Glycol (Miralax) 17 gm DAILYPRN PRN ORAL Constipation 08/07/16 18:45 09/06/16 18:44 Sodium Chloride (0.45% NS 1000ml) 1,000 ml @ 150 mls/hr Q6H40M IV 08/07/16 10:00 09/06/16 09:59 08/07/16 10:17 Vancomycin HCl/ Dextrose (Vancomycin/D5W 250ml) 250 ml @ 167 mls/hr Q24H IVPB 08/07/16 00:00 08/10/16 00:00 08/06/16 23:50 LILLIAM NG Aug 07, 2016 14:08
--- NOTE | 2016-08-07 14:19 | Cardiology Progress Note ---
Assessment/Plan Assessment/Plan respiratory failure profoudn sinus tachy demand related pulmonary infiltrates malignagnt pleural effusin abn lfts thrombocytopenia anemia renal failure coagulopathy [id number] ivf empiric abx vent support watch plt adn hgb watch renal fucntion poor prognosis overall with met disease Objective Last 24 Hour Vital Signs Date Time Temp Pulse Resp B/P Pulse Ox O2 Delivery O2 Flow Rate FiO2 08/07/16 14:00 141 18 132/81 98 Mechanical Ventilator 50 08/07/16 13:00 145 18 126/80 99 Mechanical Ventilator 50 08/07/16 12:50 145 27 50 08/07/16 12:00 146 08/07/16 12:00 100.7 146 18 122/72 99 Mechanical Ventilator 50 08/07/16 12:00 50 08/07/16 11:50 100.9 08/07/16 10:57 152 31 50 08/07/16 09:09 144 30 50 08/07/16 09:00 145 18 162/116 99 Mechanical Ventilator 50 08/07/16 08:00 143 08/07/16 08:00 50 08/07/16 08:00 98.1 143 18 146/74 99 Mechanical Ventilator 50 08/07/16 06:57 140 18 155/66 99 Mechanical Ventilator 50 08/07/16 06:48 140 26 50 08/07/16 06:00 140 18 155/66 99 Mechanical Ventilator 80 08/07/16 05:10 132 27 50 08/07/16 05:00 139 18 160/63 99 Mechanical Ventilator 80 08/07/16 04:00 132 08/07/16 04:00 60 08/07/16 04:00 98.0 132 18 123/67 99 Mechanical Ventilator 80 08/07/16 03:30 60 08/07/16 03:13 131 23 60 08/07/16 03:00 127 18 136/63 99 Mechanical Ventilator 80 08/07/16 02:00 130 18 123/74 99 Mechanical Ventilator 80 08/07/16 01:13 130 21 100 08/07/16 01:00 131 18 114/63 99 Mechanical Ventilator 80 08/07/16 00:00 80 08/07/16 00:00 98.1 130 18 107/71 99 Mechanical Ventilator 80 08/07/16 00:00 130 08/06/16 23:00 122 18 105/51 99 Mechanical Ventilator 80 08/06/16 22:43 131 21 100 08/06/16 22:40 80 08/06/16 22:30 98.1 08/06/16 22:00 80 08/06/16 22:00 129 18 135/74 100 Mechanical Ventilator 80 08/06/16 21:05 128 19 100 08/06/16 21:00 120 20 108/79 100 Mechanical Ventilator 100 08/06/16 20:00 125 08/06/16 20:00 98.1 122 22 93/53 100 Mechanical Ventilator 100 08/06/16 19:15 129 19 100 08/06/16 19:15 100 08/06/16 18:52 127 34 90 Full Face 100 08/06/16 17:13 133 37 96 Full Face 75 08/06/16 16:20 97.0 08/06/16 16:00 65 08/06/16 16:00 130 08/06/16 16:00 97.0 140 37 147/95 99 Bi-pap 75 08/06/16 14:40 136 40 96 Full Face 65 Intake and Output 08/06/16 08/07/16 19:00 07:00 Intake Total 500 ml 900 ml Output Total 300 ml 265 ml Balance 200 ml 635 ml IV Total 500 ml 900 ml Output Urine Total 300 ml 265 ml # Bowel Movements 1 Laboratory Tests Test 08/06/16 18:40 08/06/16 21:15 08/06/16 22:05 08/07/16 05:15 Arterial Blood pH 7.105 (7.350-7.450) 7.273 (7.350-7.450) Arterial Blood Partial Pressure CO2 88.5 mmHg (35.0-45.0) *H 51.1 mmHg (35.0-45.0) H Arterial Blood Partial Pressure O2 68.7 mmHg (75.0-100.0) L 441.8 mmHg (75.0-100.0) H Arterial Blood HCO3 27.2 mmol/L (22.0-26.0) H 23.1 mmol/L (22.0-26.0) Arterial Blood Oxygen Saturation 85.3 % (92.0-98.0) L 99.5 % (92.0-98.0) H Arterial Blood Base Excess -3.4 -3.7 Julio Test Positive Positive Lactic Acid Level 3.10 mmol/L (0.66-2.22) H 3.50 mmol/L (0.66-2.22) H White Blood Count 18.8 K/UL (4.8-10.8) H Red Blood Count 2.65 M/UL (4.70-6.10) L Hemoglobin 7.9 G/DL (14.2-18.0) L Hematocrit 24.3 % (42.0-52.0) L Mean Corpuscular Volume 92 FL (80-99) Mean Corpuscular Hemoglobin 30.0 PG (27.0-31.0) Mean Corpuscular Hemoglobin Concent 32.7 G/DL (32.0-36.0) Red Cell Distribution Width 14.9 % (11.6-14.8) H Platelet Count 96 K/UL (150-450) L Mean Platelet Volume 8.4 FL (6.5-10.1) Neutrophils (%) (Auto) % (45.0-75.0) Lymphocytes (%) (Auto) % (20.0-45.0) Monocytes (%) (Auto) % (1.0-10.0) Eosinophils (%) (Auto) % (0.0-3.0) Basophils (%) (Auto) % (0.0-2.0) Differential Total Cells Counted 100 Neutrophils % (Manual) 82 % (45-75) H Lymphocytes % (Manual) 10 % (20-45) L Monocytes % (Manual) 7 % (1-10) Eosinophils % (Manual) 0 % (0-3) Basophils % (Manual) 0 % (0-2) Band Neutrophils 1 % (0-8) Nucleated Red Blood Cells 4 /100 WBC Platelet Estimate Decreased L Platelet Morphology Normal Polychromasia 1+ Hypochromasia 1+ Anisocytosis 1+ Sodium Level 140 mEQ/L (135-145) Potassium Level 6.2 mEQ/L (3.4-4.9) *H Chloride Level 97 mEQ/L (98-107) L Carbon Dioxide Level 22 mEQ/L (20-30) Anion Gap 21 (5-15) H Blood Urea Nitrogen 94 mg/dL (7-23) #H Creatinine 3.1 mg/dL (0.7-1.2) #H Estimat Glomerular Filtration Rate 20.3 mL/min (>60) Glucose Level 124 mg/dL (74-106) H Calcium Level 8.1 mg/dL (8.6-10.2) L Total Bilirubin 0.5 mg/dL (0.0-1.2) Aspartate Amino Transf (AST/SGOT) 157 U/L (5-40) H Alanine Aminotransferase (ALT/SGPT) 68 U/L (3-41) H Alkaline Phosphatase 1300 U/L (40-129) H Total Protein 5.6 g/dL (6.6-8.7) L Albumin 2.5 g/dL (3.5-5.2) L Globulin 3.1 g/dL Albumin/Globulin Ratio 0.8 (1.0-2.7) L Test 08/07/16 07:10 08/07/16 07:26 08/07/16 10:00 08/07/16 10:10 Lactic Acid Level 3.40 mmol/L (0.66-2.22) H Arterial Blood pH 7.400 (7.350-7.450) Arterial Blood Partial Pressure CO2 36.4 mmHg (35.0-45.0) Arterial Blood Partial Pressure O2 130.0 mmHg (75.0-100.0) H Arterial Blood HCO3 21.8 mmol/L (22.0-26.0) L Arterial Blood Oxygen Saturation 98.0 % (92.0-98.0) Arterial Blood Base Excess -2.8 Julio Test Urine Color Yellow Urine Appearance Slightly cloudy Urine pH 5 (4.5-8.0) Urine Specific [place] 1.020 (1.005-1.035) Urine Protein 3+ (NEGATIVE) H Urine Glucose (UA) 1+ (NEGATIVE) H Urine Ketones 1+ (NEGATIVE) H Urine Occult Blood 5+ (NEGATIVE) H Urine Nitrite Negative (NEGATIVE) Urine Bilirubin Negative (NEGATIVE) Urine Urobilinogen Normal MG/DL (0.0-1.0) Urine Leukocyte Esterase 3+ (NEGATIVE) H Urine RBC 30-40 /HPF (0 - 0) H Urine WBC 2-4 /HPF (0 - 0) Urine Squamous Epithelial Cells Occasional /LPF Urine Bacteria Few /HPF (NONE) Urine Eosinophils None seen Urine Osmolality Pending Urine Random Sodium 45 mmol/L Urine Random Chloride 39 mmol/L Urine Potassium Timed 60 mmol/L Erythrocyte Sedimentation Rate 70 MM/HR (0-20) H Reticulocyte Count 2.7 % (0.0-2.0) H Prothrombin Time 14.0 SEC (9.30-11.50) H Prothromb Time International Ratio 1.4 (0.9-1.1) H Activated Partial Thromboplast Time 34 SEC (23-33) H Sodium Level 139 mEQ/L (135-145) Potassium Level 5.8 mEQ/L (3.4-4.9) H Chloride Level 98 mEQ/L (98-107) Carbon Dioxide Level 21 mEQ/L (20-30) Anion Gap 20 (5-15) H Blood Urea Nitrogen 102 mg/dL (7-23) H Creatinine 3.4 mg/dL (0.7-1.2) H Estimat Glomerular Filtration Rate 18.3 mL/min (>60) Glucose Level 127 mg/dL (74-106) H Osmolality Pending Uric Acid 14.3 mg/dL (3.0-7.5) H Calcium Level 7.7 mg/dL (8.6-10.2) L Phosphorus Level 4.8 mg/dL (2.5-4.8) Magnesium Level 2.4 mg/dL (1.7-2.5) Iron Level 108 ug/dL (59-158) Total Iron Binding Capacity 193 ug/dL (250-400) L Percent Iron Saturation 56 % (15-50) H Unsaturated Iron Binding 85 ug/dL (112-346) L Total Bilirubin 0.5 mg/dL (0.0-1.2) Aspartate Amino Transf (AST/SGOT) 218 U/L (5-40) H Alanine Aminotransferase (ALT/SGPT) 84 U/L (3-41) H Alkaline Phosphatase 1160 U/L (40-129) H Lactate Dehydrogenase 735 U/L (135-230) H Total Creatine Kinase 112 U/L (38-174) Total Protein 5.5 g/dL (6.6-8.7) L Albumin 2.5 g/dL (3.5-5.2) L Globulin 3.0 g/dL Albumin/Globulin Ratio 0.8 (1.0-2.7) L Carcinoembryonic Antigen 458.3 ng/mL H Vitamin B12 Level 1261 pg/mL (211-946) H Folate Pending Thyroid Stimulating Hormone (TSH) 1.340 uIU/mL (0.300-4.500) Free Thyroxine 0.40 ng/dL (0.86-1.85) L Free Triiodothyronine 0.7 pg/mL (2.3-4.2) L Cortisol 158.2 ug/dL Microbiology Date/Time Source Procedure Growth Status 08/05/16 17:10 Blood Blood Culture - Preliminary NO GROWTH AFTER 24 HOURS Resulted 08/05/16 16:55 Blood Blood Culture - Preliminary NO GROWTH AFTER 24 HOURS Resulted 08/05/16 18:11 Urine,Clean Catch Urine Culture - Preliminary NO GROWTH AFTER 24 HOURS Resulted 08/05/16 19:46 Rectum VRE Culture - Final Enterococcus Faecium - Vre Complete NORI LE Aug 07, 2016 14:19
[2016-08-07 15:11] LABS: REFLEX LACTIC ACID YES OR NO YES
--- NOTE | 2016-08-07 15:54 | Consultation ---
Consult Note Consult Note Asked to eval at the request of Dr Scott for renal failure Patient is a 66-year-old male who presented from assisted for acute respiratory distress. 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 The patient was noted to have metastatic pleural effusion which was recurrent. The patient presented after increased difficulty breathing. Patient was brought in by ambulance on a continuous positive airway pressure. The patient was on supplemental oxygen. Patient was noted to have a fever. He is markedly tachycardic per EMS he was noted to have adequate blood sugar Patinet intubated in ICU- Examined- Date reviewed Discused with pelletizer/Plan (1) Acute hypoxemic respiratory failure on Vent (2) ATN (acute tubular necrosis), multifactorial , worsening, HyperKalemia (3) Severe sepsis Possible healthcare-associated pneumonia. Sputum culture is pending. Chest x-ray shows diffuse infiltrates versus pulmonary edema, unchanged from previous. Possible urinary tract infection. Urine cultures, no growth to date. 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 (6) Severe protein-calorie malnutrition PLAN: 1. Continue empiric IV vancomycin and cefepime day # 1, 7 to 10. 2. Follow up cultures. 3. Monitor CBC and electrolytes- treat high K 4. Monitor BMP. 5. Monitor chest x-ray. 6. Resp suport 7. Urine studies, monitor renal parameters- avoid nephrotoxics LA FALK Aug 07, 2016 15:54
--- NOTE | 2016-08-07 17:50 | Cardiology Report ---
APPROVED REPORT EKG Measurement Heart [id number] Sinus tachycardia Otherwise normal ECG
[2016-08-07] MEDS ORDERED: Miralax 17gm pkt ORAL PRN (18:45)
[2016-08-08] VITALS (24 sets, daily range): BP systolic 105–157; BP diastolic 55–99
--- NOTE | 2016-08-08 03:08 | Consultation ---
DATE OF CONSULTATION: 08/07/2015 CARDIOLOGY CONSULTATION CONSULTING PHYSICIAN: Jd Mathew M.D. REFERRING PHYSICIAN: Johnny Salas M.D. REASON FOR REFERRAL: Respiratory failure and has significant tachycardia. HISTORY OF PRESENT ILLNESS: This is a very unfortunate 66-year-old gentleman, who has been in the hospital for the past two days. I was notified by Dr. Salas to see the patient because of significant tachycardia and organ system failure. The patient is on a mechanical ventilator, unable to provide meaningful history whatsoever. The paramedics have run sheet indicated patient was found in a convalescent hospital with severe shortness of breath for one hour but also been chronic issues since the patient apparently had been diagnosed with lung cancer. He was noted to have rapid respiration, accessory muscle use, and was agitated and improved with CPAP treatment en route and subsequently when he received here. Eventually, he went into respiratory acidosis and was intubated for airway protection, noticed to be significantly tachycardic and several other abnormalities on that laboratories that have been noted. PAST MEDICAL HISTORY: Extensive and unfortunate and includes the fact that he was recently discharged from here on 07/31/2016. He was diagnosed with bladder cancer with recent thoracentesis at the [facility] and was noted to have bilateral patchy pulmonary parenchymal ground-glass opacities, large bilateral pleural effusions, borderline metastatic adenopathy, questionable diffuse esophageal wall thickening, esophagitis. Laboratory work showed increasing level of CEA at that time. The patient has been diagnosed with metastatic adenocarcinoma, bladder cancer, malignant pleural effusion, coagulopathy, elevated CEA, systemic hypertension, anemia, severe protein-calorie malnutrition. He also has had bladder surgery apparently for tumor in the [facility] recently. Apparently an attempt was made to transfer records from the [facility] but that apparently has failed, nevertheless no significant drug allergies noted. SOCIAL HISTORY: Resident of [facility] and apparently through [facility]. No active tobacco, alcohol, or illicit drug use. He has family members that have apparently not been involved until just recently when I called them and let him know that he was he was in the hospital and the family is actually now here. When they saw him decided to transfer him because the situation to the hospital. REVIEW OF SYSTEMS: Really unable to obtain. PHYSICAL EXAMINATION: GENERAL: Shows to be elderly gentleman, on a mechanical ventilator, 50% FiO2 with 5 of PEEP. VITAL SIGNS: Blood pressure is 120s/50s, heart rates in the 140 range, oxygen saturation 98%. NECK: Supple. No jugular venous distention. LUNGS: Show some breath sounds are noted. There is rhonchi noted bilaterally. CARDIAC: Regular rhythm. Tachycardic. No heaves or thrills noted. ABDOMEN: Soft and nontender. Positive bowel sounds. EXTREMITIES: There is no edema. NEUROLOGIC: He is not responsive, not communicative at the present time. LABORATORY AND DIAGNOSTIC DATA: He came in with a white count of 21,000 up to 23,000, today is 18.8, hemoglobin was 11, down to 7.9, and platelet count was 137,000 now dropping down to 96,000. Sedimentation rate of 70, reticulocyte count of 2.7. Blood gases, pH of 7.4, pCO2 36, pO2 of 138, bicarb of 22. His worse blood gases on 08/06/2016 with pH of 7.1, pCO2 of 88, pO2 of 68 before his intubation. His sodium is 139, potassium 5.8, chloride 98, bicarbonate of 21, BUN of 102, creatinine 3.4, glucose of 127. His lactic acid level between 3.5 and 3.4. Uric acid 14.3 and calcium is 7.3. Iron level is 108 with an AST and ALT that have risen from 07/20/2016 being 20 to 218 today, and his alkaline phosphatase was a 1022 before and is now at 1160. His CEA was 210 before and is 458 at the present time and his vitamin B12 was 1260. His TSH 1.34 and it was 1.35 on prior occasions. Cortisol of 158. His coags, INR was 1.4 and a PTT of 30 today. His urinalysis shows 30 to 40 RBCs, 2 to 4 WBCs, 3+ leukocyte esterase. Thoracentesis that was performed on the 08/01/2016 unfortunately I do not have results back that I can read. He had a chest x-ray that basically I reviewed personally, bilateral pulmonary infiltrates, mixed interstitial, alveolar infiltrates, large left and small right pleural effusion being noted and is unchanged. The patient underwent a CT scan of abdomen and chest on 07/24/2016 that has shown extensive bilateral patchy pulmonary and parenchymal ground-glass opacities, nonspecific noninfectious infiltrate, large bilateral effusion at that time, mediastinal adenopathy was borderline, minimal pericardial effusion, extensive infiltration of the perinephric fat, possibility of infiltration with tumor rupture of the left renal collecting system with contrast extravasation, mesenteric lymphadenopathy, bilateral hydronephrotic and hydroureteral stents being present. Basically telemetry shows severe sinus tachycardia and at least on telemetry I do not have an EKG here to review. ASSESSMENT AND PLAN: 1. Bilateral pulmonary infiltrates, questionable infectious versus malignancy. 2. Malignant pleural effusion. 3. Bladder cancer. 4. Ruptured left ureteral . 5. Abnormal liver function tests. 6. Coagulopathy. 7. Thrombocytopenia. 8. Anemia. 9. Leukocytosis. 10. Renal failure. 11. Coagulopathy. Dr. Salas, this patient was seen in cardiac consultation. The patient's blood pressure seems to be an adequate with 130s over 80s with heart rate of 104 suggestive of his underlying and demand related being sinus in origin. He is on a mechanical ventilator appears to be saturating adequately and he has a already had a venous duplex study that was performed that showed no evidence of thrombus within the femoropopliteal or tibial veins. Other etiology for sinus tachycardia can obviously could not be excluded. He is getting antibiotic therapy empirically. His blood cultures so far are negative. His rectum is enterococcus growing. Urine catheter was also negative in terms of growth. His chest x-ray does not show any significant cardiomegaly and I doubt that the pericardial effusion may have contribution to his present status. His last echocardiogram showed normal left ventricular systolic function and did not show any evidence of pericardial effusion and that echocardiogram was done on 07/20/2016 and the patient will be followed as I understand the families trying to decide about possibility of terminal extubation at the present time. Dr. Salas, thank you for allowing me to participate in care of this patient. Jd Mathew M.D. DR: Maurice JOB#: [id number] CC:
[2016-08-08 06:21] LABS: MEAN CORPUSCULAR HEMOGLOBIN 29.7 PG (27.0-31.0); MEAN CORPUSCULAR HGB CONC 33.1 G/DL (32.0-36.0); MEAN CORPUSCULAR VOLUME 90 FL (80-99); MEAN PLATELET VOLUME 7.3 FL (6.5-10.1); PLATELET COUNT 51 K/UL (150-450); RED BLOOD COUNT 2.55 M/UL (4.70-6.10); RED CELL DISTRIBUTION WIDTH 15.2 % (11.6-14.8); WHITE BLOOD COUNT 14.2 K/UL (4.8-10.8)
[2016-08-08 06:26] LABS: ALBUMIN/GLOBULIN RATIO 0.9 (1.0-2.7); CALCIUM 7.6 mg/dL (8.6-10.2); CREATININE 2.8 mg/dL (0.7-1.2); GLOMERULAR FILTRATION RATE 22.9 mL/min (>60); MAGNESIUM 2.3 mg/dL (1.7-2.5); PHOSPHORUS 5.3 mg/dL (2.5-4.8); POTASSIUM 4.4 mEQ/L (3.4-4.9); TOTAL PROTEIN 4.8 g/dL (6.6-8.7)
[2016-08-08 08:06] LABS: TROPONIN I < 0.30 ng/mL (<=0.30)
[2016-08-08 08:12] LABS: CRP QUANT 22.3 mg/dL (< 0.5); URIC ACID 13.2 mg/dL (3.0-7.5)
[2016-08-08 08:17] LABS: ANISOCYTOSIS 1+; BAND NEUTROPHILS % (MANUAL) 9 % (0-8); BASOPHILS % (MANUAL) 0 % (0-2); EOSINOPHILS % (MANUAL) 0 % (0-3); HYPOCHROMASIA 1+; LYMPHOCYTES % (MANUAL) 11 % (20-45); NEUTROPHILS % (MANUAL) 76 % (45-75); NUCLEATED RED BLOOD CELLS 2 /100 WBC; PLATELET ESTIMATE DECREASED; PLATELET MORPHOLOGY NORMAL; POLYCHROMASIA 1+; TOTAL CELLS COUNTED 100
[2016-08-08 08:34] LABS: AMMONIA 65 umol/L (16-60)
[2016-08-08] MEDS: Heparin 5000 units/ml inj SUBQ SCH ×2 (08:48→19:52)
[2016-08-08] MEDS: Pantoprazole Inj IVP SCH ×2 (08:48→20:42)
[2016-08-08 09:47] LABS: ABG PCO2 50.8 mmHg (35.0-45.0)
[2016-08-08 09:48] LABS: ABG ALLEN TEST POSITIVE; ABG BASE EXCESS -3.7
--- NOTE | 2016-08-08 10:25 | Pulmonolgy Critical Care Note ---
Critical Care - Asmt/Plan Problems: (1) Acute hypoxemic respiratory failure (2) ATN (acute tubular necrosis) (3) Severe sepsis (4) Malignant pleural effusion (5) metatatic adenocarcinoma (6) Severe protein-calorie malnutrition Respiratory: monitor respiratory rate, adjust FIO2, CXR Cardiac: continue to monitor HR/BP Renal: F/U I&O, keep IV fluid, decrease IV fluid, other - K better, urinateing well. Infectious Disease: check cultures Gastrointestinal: continue feedings/current rate Endocrine: monitor blood sugar Hematologic: monitor H/H, transfuse if hgb<8.5 Neurologic: PRN Ativan, PRN Morphine Affect: PRN ativan Time Spent (Minutes): 40 Notes Reviewed: cardio Discussed with: nurses, consultants Critical Care - Objective Last 24 Hour Vital Signs Date Time Temp Pulse Resp B/P Pulse Ox O2 Delivery O2 Flow Rate FiO2 08/08/16 10:00 113 18 131/71 100 Mechanical Ventilator 50 08/08/16 09:23 112 18 50 08/08/16 09:00 112 20 125/66 100 Mechanical Ventilator 50 08/08/16 08:00 113 24 129/65 100 Mechanical Ventilator 50 08/08/16 08:00 50 08/08/16 08:00 113 08/08/16 07:29 115 18 50 08/08/16 07:00 97.2 116 22 141/71 100 Mechanical Ventilator 50 08/08/16 06:00 126 24 154/78 100 Mechanical Ventilator 50 08/08/16 05:30 129 27 50 08/08/16 05:00 126 24 150/71 97 Mechanical Ventilator 50 08/08/16 04:00 98.9 120 21 139/69 96 Mechanical Ventilator 50 08/08/16 04:00 120 08/08/16 04:00 50 08/08/16 03:30 120 22 50 08/08/16 03:00 115 19 142/62 96 Mechanical Ventilator 50 08/08/16 02:00 109 18 105/55 99 Mechanical Ventilator 50 08/08/16 01:30 110 19 50 08/08/16 01:00 110 18 108/56 100 Mechanical Ventilator 50 08/08/16 00:00 99.2 124 18 110/64 97 Mechanical Ventilator 50 08/08/16 00:00 50 08/08/16 00:00 124 08/07/16 23:00 119 21 50 1/10/17 23:00 119 19 113/59 98 Mechanical Ventilator 50 08/07/16 22:00 121 20 156/72 98 Mechanical Ventilator 50 08/07/16 21:30 120 18 40 08/07/16 21:00 115 20 152/77 98 Mechanical Ventilator 50 08/07/16 20:13 98.8 08/07/16 20:00 98.8 102 19 145/77 98 Mechanical Ventilator 50 08/07/16 20:00 50 08/07/16 19:55 112 08/07/16 19:28 108 25 40 08/07/16 19:00 108 20 150/77 98 Mechanical Ventilator 50 08/07/16 18:00 113 19 148/83 98 Mechanical Ventilator 50 08/07/16 17:00 98.2 116 19 115/60 98 Mechanical Ventilator 50 08/07/16 16:54 127 19 50 08/07/16 16:00 133 08/07/16 16:00 50 08/07/16 16:00 102.8 135 19 127/63 98 Mechanical Ventilator 50 08/07/16 15:00 144 18 116/61 98 Mechanical Ventilator 50 08/07/16 14:55 144 33 50 08/07/16 14:00 141 18 132/81 98 Mechanical Ventilator 50 08/07/16 13:00 145 18 126/80 99 Mechanical Ventilator 50 08/07/16 12:50 145 27 50 08/07/16 12:00 146 08/07/16 12:00 100.7 146 18 122/72 99 Mechanical Ventilator 50 08/07/16 12:00 50 08/07/16 11:50 100.9 08/07/16 10:57 152 31 50 Status: awake Condition: critical HEENT: atraumatic, normocephalic Lungs: chest wall tender Heart: HR/BP stable Abdomen: soft, non-tender, feeding tube Micro: Microbiology Date/Time Source Procedure Growth Status 08/06/16 11:15 Blood Blood Culture - Preliminary NO GROWTH AFTER 24 HOURS Resulted 08/06/16 10:50 Blood Blood Culture - Preliminary NO GROWTH AFTER 24 HOURS Resulted 08/05/16 17:10 Blood Blood Culture - Preliminary NO GROWTH AFTER 48 HOURS Resulted 08/05/16 16:55 Blood Blood Culture - Preliminary NO GROWTH AFTER 48 HOURS Resulted 08/05/16 20:21 Nasal Nares MRSA Culture - Final Staphylococcus Aureus - Mrsa Complete 08/05/16 18:11 Urine,Clean Catch Urine Culture - Final NO GROWTH AFTER 48 HOURS Complete 08/05/16 19:46 Rectum VRE Culture - Final Enterococcus Faecium - Vre Complete Critical Care - Subjective ROS Limited/Unobtainable: Yes ICU Day: 3 Intubation Day: 3 Condition: critical EKG Rhythm: Sinus Rhythm FI02: 50 Vent Support Breath Rate: 18 Vent Support Mode: AC Vent Tidal Volume: 600 Sputum Amount: Small PEEP: 5.0 PIP: 28 Fluids: 1/2 nS 150n cc.hour Tube Feeding Amount: 35 I&O: Intake and Output 08/07/16 08/08/16 19:00 07:00 Intake Total 2610 ml 2745 ml Output Total 605 ml 570 ml Balance 2005 ml 2175 ml Intake Free Water 220 ml 100 ml IV Total 2050 ml 2000 ml Tube Feeding 300 ml 395 ml Blood Product 250 ml Other 40 ml Output Urine Total 605 ml 570 ml CXR: bilateral effusion, interstitial infiltrate ET-Tube: 7.5 ET Position: 24 Labs: Laboratory Tests Test 08/07/16 14:26 08/07/16 18:00 08/07/16 22:50 08/08/16 05:00 Lactic Acid Level 4.10 mmol/L (0.66-2.22) H Urine Random Sodium 19 mmol/L Vancomycin Level Trough 13.8 ug/mL (5.0-12.0) H White Blood Count 14.2 K/UL (4.8-10.8) H Red Blood Count 2.55 M/UL (4.70-6.10) L Hemoglobin 7.6 G/DL (14.2-18.0) L Hematocrit 22.9 % (42.0-52.0) L Mean Corpuscular Volume 90 FL (80-99) Mean Corpuscular Hemoglobin 29.7 PG (27.0-31.0) Mean Corpuscular Hemoglobin Concent 33.1 G/DL (32.0-36.0) Red Cell Distribution Width 15.2 % (11.6-14.8) H Platelet Count 51 K/UL (150-450) L Mean Platelet Volume 7.3 FL (6.5-10.1) Neutrophils (%) (Auto) % (45.0-75.0) Lymphocytes (%) (Auto) % (20.0-45.0) Monocytes (%) (Auto) % (1.0-10.0) Eosinophils (%) (Auto) % (0.0-3.0) Basophils (%) (Auto) % (0.0-2.0) Differential Total Cells Counted 100 Neutrophils % (Manual) 76 % (45-75) H Lymphocytes % (Manual) 11 % (20-45) L Monocytes % (Manual) 4 % (1-10) Eosinophils % (Manual) 0 % (0-3) Basophils % (Manual) 0 % (0-2) Band Neutrophils 9 % (0-8) H Nucleated Red Blood Cells 2 /100 WBC Platelet Estimate Decreased L Platelet Morphology Normal Polychromasia 1+ Hypochromasia 1+ Anisocytosis 1+ Urine Eosinophils None seen Sodium Level 138 mEQ/L (135-145) Potassium Level 4.4 mEQ/L (3.4-4.9) Chloride Level 99 mEQ/L (98-107) Carbon Dioxide Level 23 mEQ/L (20-30) Anion Gap 16 (5-15) H Blood Urea Nitrogen 105 mg/dL (7-23) H Creatinine 2.8 mg/dL (0.7-1.2) H Estimat Glomerular Filtration Rate 22.9 mL/min (>60) Glucose Level 133 mg/dL (74-106) H Uric Acid 13.2 mg/dL (3.0-7.5) H Calcium Level 7.6 mg/dL (8.6-10.2) L Phosphorus Level 5.3 mg/dL (2.5-4.8) H Magnesium Level 2.3 mg/dL (1.7-2.5) Total Bilirubin 0.5 mg/dL (0.0-1.2) Gamma Glutamyl Transpeptidase 38 U/L (8-61) Aspartate Amino Transf (AST/SGOT) 187 U/L (5-40) H Alanine Aminotransferase (ALT/SGPT) 95 U/L (3-41) H Alkaline Phosphatase 974 U/L (40-129) H Ammonia 65 umol/L (16-60) H Total Creatine Kinase 169 U/L (38-174) Troponin I < 0.30 ng/mL (<=0.30) C-Reactive Protein, Quantitative 22.3 mg/dL (< 0.5) H Pro-B-Type Natriuretic Peptide 2954 pg/mL (0-125) H Total Protein 4.8 g/dL (6.6-8.7) L Albumin 2.3 g/dL (3.5-5.2) L Globulin 2.5 g/dL Albumin/Globulin Ratio 0.9 (1.0-2.7) L Test 08/08/16 09:30 Arterial Blood pH 7.278 (7.350-7.450) Arterial Blood Partial Pressure CO2 50.8 mmHg (35.0-45.0) H Arterial Blood Partial Pressure O2 54.3 mmHg (75.0-100.0) L Arterial Blood HCO3 23.0 mmol/L (22.0-26.0) Arterial Blood Oxygen Saturation 83.9 % (92.0-98.0) L Arterial Blood Base Excess -3.7 Julio Test Positive BARBRA CARDENAS Aug 08, 2016 10:25
--- NOTE | 2016-08-08 11:44 | Diagnostic Imaging Report ---
Indication: Dyspnea Comparison: 08/07/16 A single view chest radiograph was obtained. Findings: Tubes and lines are stable. Heart size is normal and stable. Extensive airspace disease noted bilaterally. Left pleural effusion moderate in size and a small right pleural effusion are noted. Impression: No significant change management director one day
[2016-08-08] MEDS: LORazepam Inj 2mg/ml 1ml IV PRN ×2 (12:07→14:35)
--- NOTE | 2016-08-08 13:29 | General Progress Note ---
Assessment/Plan Status: unchanged Assessment/Plan (1) Acute hypoxemic respiratory failure on Vent (2) ATN (acute tubular necrosis), multifactorial , worsening, HyperKalemia ( Hyperkalemia and SCr improved) (3) Severe sepsis Possible healthcare-associated pneumonia. Sputum culture is pending. Chest x-ray shows diffuse infiltrates versus pulmonary edema, unchanged from previous. Possible urinary tract infection. Urine cultures, no growth to date. 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 (6) Severe protein-calorie malnutrition (7) Anemia PLAN: 1. vancomycin and cefepime 2. Follow up cultures. 3. Monitor CBC and electrolytes- treat high K 4. Monitor BMP. 5. Monitor chest x-ray. 6. Resp suport 7. Urine studies, monitor renal parameters- avoid nephrotoxics Subjective ROS Limited/Unobtainable: Yes Allergies: Coded Allergies: No Known Allergies (Unverified , 07/20/16) Objective Last 24 Hour Vital Signs Date Time Temp Pulse Resp B/P Pulse Ox O2 Delivery O2 Flow Rate FiO2 08/08/16 12:50 121 3 40 08/08/16 12:00 40 08/08/16 12:00 121 08/08/16 12:00 98.3 121 20 138/76 100 Mechanical Ventilator 40 08/08/16 11:29 120 28 40 08/08/16 11:00 116 20 134/78 100 Mechanical Ventilator 50 08/08/16 10:00 113 18 131/71 100 Mechanical Ventilator 50 08/08/16 09:23 112 18 50 08/08/16 09:00 112 20 125/66 100 Mechanical Ventilator 50 08/08/16 08:00 113 24 129/65 100 Mechanical Ventilator 50 08/08/16 08:00 50 08/08/16 08:00 113 08/08/16 07:29 115 18 50 08/08/16 07:00 97.2 116 22 141/71 100 Mechanical Ventilator 50 08/08/16 06:00 126 24 154/78 100 Mechanical Ventilator 50 08/08/16 05:30 129 27 50 08/08/16 05:00 126 24 150/71 97 Mechanical Ventilator 50 08/08/16 04:00 98.9 120 21 139/69 96 Mechanical Ventilator 50 08/08/16 04:00 120 08/08/16 04:00 50 08/08/16 03:30 120 22 50 08/08/16 03:00 115 19 142/62 96 Mechanical Ventilator 50 08/08/16 02:00 109 18 105/55 99 Mechanical Ventilator 50 08/08/16 01:30 110 19 50 08/08/16 01:00 110 18 108/56 100 Mechanical Ventilator 50 08/08/16 00:00 99.2 124 18 110/64 97 Mechanical Ventilator 50 08/08/16 00:00 50 08/08/16 00:00 124 08/07/16 23:00 119 21 50 08/07/16 23:00 119 19 113/59 98 Mechanical Ventilator 50 08/07/16 22:00 121 20 156/72 98 Mechanical Ventilator 50 08/07/16 21:30 120 18 40 08/07/16 21:00 115 20 152/77 98 Mechanical Ventilator 50 08/07/16 20:13 98.8 08/07/16 20:00 98.8 102 19 145/77 98 Mechanical Ventilator 50 08/07/16 20:00 50 08/07/16 19:55 112 08/07/16 19:28 108 25 40 08/07/16 19:00 108 20 150/77 98 Mechanical Ventilator 50 08/07/16 18:00 113 19 148/83 98 Mechanical Ventilator 50 08/07/16 17:00 98.2 116 19 115/60 98 Mechanical Ventilator 50 08/07/16 16:54 127 19 50 08/07/16 16:00 133 08/07/16 16:00 50 08/07/16 16:00 102.8 135 19 127/63 98 Mechanical Ventilator 50 08/07/16 15:00 144 18 116/61 98 Mechanical Ventilator 50 08/07/16 14:55 144 33 50 08/07/16 14:00 141 18 132/81 98 Mechanical Ventilator 50 Intake and Output 08/07/16 08/08/16 18:59 06:59 Intake Total 2540 ml 2630 ml Output Total 535 ml 600 ml Balance 2005 ml 2030 ml Intake Free Water 220 ml 100 ml IV Total 2050 ml 1850 ml Tube Feeding 270 ml 390 ml Blood Product 250 ml Other 40 ml Output Urine Total 535 ml 600 ml Laboratory Tests 08/07/16 14:26: Lactic Acid Level 4.10H 08/07/16 18:00: Urine Random Sodium 19 08/07/16 22:50: Vancomycin Level Trough 13.8H 08/08/16 05:00: White Blood Count 14.2H, Red Blood Count 2.55L, Hemoglobin 7.6L, Hematocrit 22.9L, Mean Corpuscular Volume 90, Mean Corpuscular Hemoglobin 29.7, Mean Corpuscular Hemoglobin Concent 33.1, Red Cell Distribution Width 15.2H, Platelet Count 51L, Mean Platelet Volume 7.3, Neutrophils (%) (Auto) , Lymphocytes (%) (Auto) , Monocytes (%) (Auto) , Eosinophils (%) (Auto) , Basophils (%) (Auto) , Differential Total Cells Counted 100, Neutrophils % ( Manual) 76H, Lymphocytes % (Manual) 11L, Monocytes % (Manual) 4, Eosinophils % ( Manual) 0, Basophils % (Manual) 0, Band Neutrophils 9H, Nucleated Red Blood Cells 2, Platelet Estimate DecreasedL, Platelet Morphology Normal, Polychromasia 1+, Hypochromasia 1+, Anisocytosis 1+, Urine Eosinophils None seen , Sodium Level 138, Potassium Level 4.4, Chloride Level 99, Carbon Dioxide Level 23, Anion Gap 16H, Blood Urea Nitrogen 105H, Creatinine 2.8H, Estimat Glomerular Filtration Rate 22.9, Glucose Level 133H, Uric Acid 13.2H, Calcium Level 7.6L, Phosphorus Level 5.3H, Magnesium Level 2.3, Total Bilirubin 0.5, Gamma Glutamyl Transpeptidase 38, Aspartate Amino Transf (AST/SGOT) 187H, Alanine Aminotransferase (ALT/SGPT) 95H, Alkaline Phosphatase 974H, Ammonia 65H , Total Creatine Kinase 169, Troponin I < 0.30, C-Reactive Protein, Quantitative 22.3H, Pro-B-Type Natriuretic Peptide 2954H, Total Protein 4.8L, Albumin 2.3L, Globulin 2.5, Albumin/Globulin Ratio 0.9L 08/08/16 09:30: Arterial Blood pH 7.278L, Arterial Blood Partial Pressure CO2 50.8H, Arterial Blood Partial Pressure O2 54.3L, Arterial Blood HCO3 23.0, Arterial Blood Oxygen Saturation 83.9L, Arterial Blood Base Excess -3.7, Julio Test Positive Height (Feet): 5 Height (Inches): 7.00 Weight (Pounds): 162 General Appearance: other - on vent Cardiovascular: tachycardia Respiratory/Chest: decreased breath sounds Abdomen: distended Objective other PE not changed LA FALK Aug 08, 2016 13:29
[2016-08-08] MEDS: Allopurinol 100mg Tab NG SCH (14:35)
--- NOTE | 2016-08-08 15:15 | Infectious Diseases Prog Note ---
Assessment/Plan Assessment/Plan ASSESSMENT: 66 y/o male with: // Possible HCAP - SCx pending - CXR 08/08: Extensive airspace disease noted bilaterally. Left pleural effusion moderate in size and a small right pleural effusion are noted. // Possible UTI - UCx NGTD // Severe sepsis - improving lactic acidosis // Leukocytosis - persistent, improved ( malignancy contributing ) // Low grade fever - afebrile overnight ( malignancy contributing ) // Acute VDRF - intubated 08/06 // Recurrent malignant pleural effusion - SP thoracentesis 08/01 - Cx(-), cytology(+) adenocarcinoma // ARF on CKD3 - improved // Metastatic adenoCA // Elevated ALP ?bone mets // Thrombocytopenia // VRE colonized // NKDA // Full Code PLAN: - continue empiric IV vancomycin, cefepime d# 02-04 - f/u cultures - monitor CBC, temperatures - monitor BMP - monitor CXR - vent support, wean as tolerated - poor overall prognosis Subjective Allergies: Coded Allergies: No Known Allergies (Unverified , 07/20/16) Subjective afebrile overnight Cx NGTD more awake on vent Objective Vital Signs Last 24 Hour Vital Signs Date Time Temp Pulse Resp B/P Pulse Ox O2 Delivery O2 Flow Rate FiO2 08/08/16 15:00 119 20 120/67 100 Mechanical Ventilator 40 08/08/16 14:00 128 20 123/83 100 Mechanical Ventilator 40 08/08/16 13:00 128 20 119/84 100 Mechanical Ventilator 40 08/08/16 12:50 121 3 40 08/08/16 12:00 40 08/08/16 12:00 121 08/08/16 12:00 98.3 121 20 138/76 100 Mechanical Ventilator 40 08/08/16 11:29 120 28 40 08/08/16 11:00 116 20 134/78 100 Mechanical Ventilator 50 08/08/16 10:00 113 18 131/71 100 Mechanical Ventilator 50 08/08/16 09:23 112 18 50 08/08/16 09:00 112 20 125/66 100 Mechanical Ventilator 50 08/08/16 08:00 113 24 129/65 100 Mechanical Ventilator 50 08/08/16 08:00 50 08/08/16 08:00 113 08/08/16 07:29 115 18 50 08/08/16 07:00 97.2 116 22 141/71 100 Mechanical Ventilator 50 08/08/16 06:00 126 24 154/78 100 Mechanical Ventilator 50 08/08/16 05:30 129 27 50 08/08/16 05:00 126 24 150/71 97 Mechanical Ventilator 50 08/08/16 04:00 98.9 120 21 139/69 96 Mechanical Ventilator 50 08/08/16 04:00 120 08/08/16 04:00 50 08/08/16 03:30 120 22 50 08/08/16 03:00 115 19 142/62 96 Mechanical Ventilator 50 08/08/16 02:00 109 18 105/55 99 Mechanical Ventilator 50 08/08/16 01:30 110 19 50 08/08/16 01:00 110 18 108/56 100 Mechanical Ventilator 50 08/08/16 00:00 99.2 124 18 110/64 97 Mechanical Ventilator 50 08/08/16 00:00 50 08/08/16 00:00 124 08/07/16 23:00 119 21 50 08/07/16 23:00 119 19 113/59 98 Mechanical Ventilator 50 08/07/16 22:00 121 20 156/72 98 Mechanical Ventilator 50 08/07/16 21:30 120 18 40 08/07/16 21:00 115 20 152/77 98 Mechanical Ventilator 50 08/07/16 20:13 98.8 08/07/16 20:00 98.8 102 19 145/77 98 Mechanical Ventilator 50 08/07/16 20:00 50 08/07/16 19:55 112 08/07/16 19:28 108 25 40 08/07/16 19:00 108 20 150/77 98 Mechanical Ventilator 50 08/07/16 18:00 113 19 148/83 98 Mechanical Ventilator 50 08/07/16 17:00 98.2 116 19 115/60 98 Mechanical Ventilator 50 08/07/16 16:54 127 19 50 08/07/16 16:00 133 08/07/16 16:00 50 08/07/16 16:00 102.8 135 19 127/63 98 Mechanical Ventilator 50 Height (Feet): 5 Height (Inches): 7.00 Weight (Pounds): 162 General Appearance: cachetic, other - intubated Respiratory/Chest: decreased breath sounds Cardiovascular: normal rate, regular rhythm Abdomen: normal bowel sounds, soft, non tender, non distended Microbiology Date/Time Source Procedure Growth Status 08/06/16 11:15 Blood Blood Culture - Preliminary NO GROWTH AFTER 24 HOURS Resulted 08/06/16 10:50 Blood Blood Culture - Preliminary NO GROWTH AFTER 24 HOURS Resulted 08/05/16 17:10 Blood Blood Culture - Preliminary NO GROWTH AFTER 48 HOURS Resulted 08/05/16 16:55 Blood Blood Culture - Preliminary NO GROWTH AFTER 48 HOURS Resulted 08/05/16 20:21 Nasal Nares MRSA Culture - Final Staphylococcus Aureus - Mrsa Complete 08/05/16 18:11 Urine,Clean Catch Urine Culture - Final NO GROWTH AFTER 48 HOURS Complete 08/05/16 19:46 Rectum VRE Culture - Final Enterococcus Faecium - Vre Complete Laboratory Tests Test 08/07/16 18:00 08/07/16 22:50 08/08/16 05:00 08/08/16 09:30 Urine Random Sodium 19 mmol/L Vancomycin Level Trough 13.8 ug/mL (5.0-12.0) H White Blood Count 14.2 K/UL (4.8-10.8) H Red Blood Count 2.55 M/UL (4.70-6.10) L Hemoglobin 7.6 G/DL (14.2-18.0) L Hematocrit 22.9 % (42.0-52.0) L Mean Corpuscular Volume 90 FL (80-99) Mean Corpuscular Hemoglobin 29.7 PG (27.0-31.0) Mean Corpuscular Hemoglobin Concent 33.1 G/DL (32.0-36.0) Red Cell Distribution Width 15.2 % (11.6-14.8) H Platelet Count 51 K/UL (150-450) L Mean Platelet Volume 7.3 FL (6.5-10.1) Neutrophils (%) (Auto) % (45.0-75.0) Lymphocytes (%) (Auto) % (20.0-45.0) Monocytes (%) (Auto) % (1.0-10.0) Eosinophils (%) (Auto) % (0.0-3.0) Basophils (%) (Auto) % (0.0-2.0) Differential Total Cells Counted 100 Neutrophils % (Manual) 76 % (45-75) H Lymphocytes % (Manual) 11 % (20-45) L Monocytes % (Manual) 4 % (1-10) Eosinophils % (Manual) 0 % (0-3) Basophils % (Manual) 0 % (0-2) Band Neutrophils 9 % (0-8) H Nucleated Red Blood Cells 2 /100 WBC Platelet Estimate Decreased L Platelet Morphology Normal Polychromasia 1+ Hypochromasia 1+ Anisocytosis 1+ Urine Eosinophils None seen Sodium Level 138 mEQ/L (135-145) Potassium Level 4.4 mEQ/L (3.4-4.9) Chloride Level 99 mEQ/L (98-107) Carbon Dioxide Level 23 mEQ/L (20-30) Anion Gap 16 (5-15) H Blood Urea Nitrogen 105 mg/dL (7-23) H Creatinine 2.8 mg/dL (0.7-1.2) H Estimat Glomerular Filtration Rate 22.9 mL/min (>60) Glucose Level 133 mg/dL (74-106) H Uric Acid 13.2 mg/dL (3.0-7.5) H Calcium Level 7.6 mg/dL (8.6-10.2) L Phosphorus Level 5.3 mg/dL (2.5-4.8) H Magnesium Level 2.3 mg/dL (1.7-2.5) Total Bilirubin 0.5 mg/dL (0.0-1.2) Gamma Glutamyl Transpeptidase 38 U/L (8-61) Aspartate Amino Transf (AST/SGOT) 187 U/L (5-40) H Alanine Aminotransferase (ALT/SGPT) 95 U/L (3-41) H Alkaline Phosphatase 974 U/L (40-129) H Ammonia 65 umol/L (16-60) H Total Creatine Kinase 169 U/L (38-174) Troponin I < 0.30 ng/mL (<=0.30) C-Reactive Protein, Quantitative 22.3 mg/dL (< 0.5) H Pro-B-Type Natriuretic Peptide 2954 pg/mL (0-125) H Total Protein 4.8 g/dL (6.6-8.7) L Albumin 2.3 g/dL (3.5-5.2) L Globulin 2.5 g/dL Albumin/Globulin Ratio 0.9 (1.0-2.7) L Arterial Blood pH 7.278 (7.350-7.450) Arterial Blood Partial Pressure CO2 50.8 mmHg (35.0-45.0) H Arterial Blood Partial Pressure O2 54.3 mmHg (75.0-100.0) L Arterial Blood HCO3 23.0 mmol/L (22.0-26.0) Arterial Blood Oxygen Saturation 83.9 % (92.0-98.0) L Arterial Blood Base Excess -3.7 Julio Test Positive Current Medications Medications (Trade) Dose Ordered Sig/Scot Route PRN Reason Start Time Stop Time Status Last Admin Dose Admin Acetaminophen (Tylenol) 650 mg Q4H PRN ORAL FEVER 08/06/16 22:45 09/05/16 22:44 08/07/16 18:10 Albuterol/ Ipratropium (DuoNeb 0.5-3(2.5)mg/3ml) 3 ml EVERY 4 HOURS PRN HHN Shortness of Breath 08/07/16 01:00 08/12/16 00:59 Allopurinol (Zyloprim) 200 mg DAILY NG 08/08/16 15:00 09/07/16 14:59 08/08/16 14:35 Cefepime HCl 2 gm/ Sodium Chloride 100 ml @ 100 mls/hr Q24H IV 08/06/16 22:00 08/12/16 21:59 08/07/16 21:43 Dextrose (Dextrose 50%) STAT PRN IV Hypoglycemia 08/07/16 18:45 09/06/16 18:44 Heparin Sodium (Porcine) (Heparin 5000 units/ml) 5,000 units EVERY 12 HOURS SUBQ 08/07/16 09:00 09/06/16 08:59 Lorazepam (Ativan 2mg/ml 1ml) 2 mg EVERY 2 HOURS PRN IV For Anxiety 08/06/16 22:00 08/13/16 21:59 08/08/16 14:35 Morphine Sulfate (Morphine Sulfate) 4 mg EVERY 4 HOURS PRN IVP Severe Pain (Pain Scale 7-10) 08/07/16 01:00 08/14/16 00:59 08/07/16 19:43 Ondansetron HCl (Zofran) 4 mg Q6H PRN IVP Nausea & Vomiting 08/07/16 00:45 09/06/16 00:44 Pantoprazole 40 mg 40 mg EVERY 12 HOURS IVP 08/07/16 09:00 09/06/16 08:59 08/08/16 08:48 Polyethylene Glycol (Miralax) 17 gm DAILYPRN PRN ORAL Constipation 08/07/16 18:45 09/06/16 18:44 Sodium Chloride (0.45% NS 1000ml) 1,000 ml @ 50 mls/hr Q20H IV 08/08/16 10:30 09/07/16 10:29 08/08/16 10:41 Vancomycin HCl/ Dextrose (Vancomycin/D5W 250ml) 250 ml @ 167 mls/hr Q24H IVPB 08/07/16 00:00 08/10/16 00:00 08/07/16 23:57 LILLIAM NG Aug 08, 2016 15:15
[2016-08-08] MEDS ORDERED: 1/2 NS 1000ml IV ONE (18:45)
[2016-08-08] MEDS ORDERED: Tubing IV Secondary IV ONE (18:45)
[2016-08-08] MEDS ORDERED: NS 275ml ONE (18:45)
[2016-08-08] MEDS ORDERED: Tubing Blood Filter IV ONE (18:45)
--- NOTE | 2016-08-08 20:20 | Cardiology Progress Note ---
Assessment/Plan Assessment/Plan respiratory failure profoudn sinus tachy demand related pulmonary infiltrates malignagnt pleural effusin abn lfts thrombocytopenia anemia renal failure coagulopathy ivf empiric abx vent support watch plt adn hgb renal fucntion better poor prognosis overall with met disease however moer repsonsive hemodynamically better Subjective ROS Limited/Unobtainable: Yes Subjective on vetn in isolation unlbe to commnicate Objective Last 24 Hour Vital Signs Date Time Temp Pulse Resp B/P Pulse Ox O2 Delivery O2 Flow Rate FiO2 08/08/16 20:00 40 08/08/16 20:00 115 08/08/16 20:00 97.9 120 20 139/71 99 Mechanical Ventilator 40 08/08/16 19:30 121 25 50 08/08/16 19:00 118 20 144/84 99 Mechanical Ventilator 40 08/08/16 18:00 119 20 157/87 99 Mechanical Ventilator 40 08/08/16 17:00 118 21 136/71 100 Mechanical Ventilator 40 08/08/16 16:56 118 20 40 08/08/16 16:00 114 08/08/16 16:00 40 08/08/16 16:00 98.2 118 20 128/72 100 Mechanical Ventilator 40 08/08/16 15:29 121 31 40 08/08/16 15:00 119 20 120/67 100 Mechanical Ventilator 40 08/08/16 14:00 128 20 123/83 100 Mechanical Ventilator 40 08/08/16 13:00 128 20 119/84 100 Mechanical Ventilator 40 08/08/16 12:50 121 30 40 08/08/16 12:00 40 08/08/16 12:00 121 08/08/16 12:00 98.3 121 20 138/76 100 Mechanical Ventilator 40 08/08/16 11:29 120 28 40 08/08/16 11:00 116 20 134/78 100 Mechanical Ventilator 50 08/08/16 10:00 113 18 131/71 100 Mechanical Ventilator 50 08/08/16 09:23 112 18 50 08/08/16 09:00 112 20 125/66 100 Mechanical Ventilator 50 08/08/16 08:00 113 24 129/65 100 Mechanical Ventilator 50 08/08/16 08:00 50 08/08/16 08:00 113 08/08/16 07:29 115 18 50 08/08/16 07:00 97.2 116 22 141/71 100 Mechanical Ventilator 50 08/08/16 06:00 126 24 154/78 100 Mechanical Ventilator 50 08/08/16 05:30 129 27 50 08/08/16 05:00 126 24 150/71 97 Mechanical Ventilator 50 08/08/16 04:00 98.9 120 21 139/69 96 Mechanical Ventilator 50 08/08/16 04:00 120 08/08/16 04:00 50 08/08/16 03:30 120 22 50 08/08/16 03:00 115 19 142/62 96 Mechanical Ventilator 50 08/08/16 02:00 109 18 105/55 99 Mechanical Ventilator 50 08/08/16 01:30 110 19 50 08/08/16 01:00 110 18 108/56 100 Mechanical Ventilator 50 08/08/16 00:00 99.2 124 18 110/64 97 Mechanical Ventilator 50 08/08/16 00:00 50 08/08/16 00:00 124 08/07/16 23:00 119 21 50 08/07/16 23:00 119 19 113/59 98 Mechanical Ventilator 50 08/07/16 22:00 121 20 156/72 98 Mechanical Ventilator 50 08/07/16 21:30 120 18 40 08/07/16 21:00 115 20 152/77 98 Mechanical Ventilator 50 General Appearance: no apparent distress, on vent, patient on isolation Neck: supple Cardiovascular: normal rate, tachycardia Respiratory/Chest: crackles/rales, rhonchi - bilaterally Abdomen: normal bowel sounds, non tender, soft Extremities: no swelling Intake and Output 08/07/16 08/08/16 19:00 07:00 Intake Total 2610 ml 2745 ml Output Total 605 ml 570 ml Balance 2005 ml 2175 ml Intake Free Water 220 ml 100 ml IV Total 2050 ml 2000 ml Tube Feeding 300 ml 395 ml Blood Product 250 ml Other 40 ml Output Urine Total 605 ml 570 ml Laboratory Tests Test 08/07/16 22:50 08/08/16 05:00 08/08/16 09:30 Vancomycin Level Trough 13.8 ug/mL (5.0-12.0) H White Blood Count 14.2 K/UL (4.8-10.8) H Red Blood Count 2.55 M/UL (4.70-6.10) L Hemoglobin 7.6 G/DL (14.2-18.0) L Hematocrit 22.9 % (42.0-52.0) L Mean Corpuscular Volume 90 FL (80-99) Mean Corpuscular Hemoglobin 29.7 PG (27.0-31.0) Mean Corpuscular Hemoglobin Concent 33.1 G/DL (32.0-36.0) Red Cell Distribution Width 15.2 % (11.6-14.8) H Platelet Count 51 K/UL (150-450) L Mean Platelet Volume 7.3 FL (6.5-10.1) Neutrophils (%) (Auto) % (45.0-75.0) Lymphocytes (%) (Auto) % (20.0-45.0) Monocytes (%) (Auto) % (1.0-10.0) Eosinophils (%) (Auto) % (0.0-3.0) Basophils (%) (Auto) % (0.0-2.0) Differential Total Cells Counted 100 Neutrophils % (Manual) 76 % (45-75) H Lymphocytes % (Manual) 11 % (20-45) L Monocytes % (Manual) 4 % (1-10) Eosinophils % (Manual) 0 % (0-3) Basophils % (Manual) 0 % (0-2) Band Neutrophils 9 % (0-8) H Nucleated Red Blood Cells 2 /100 WBC Platelet Estimate Decreased L Platelet Morphology Normal Polychromasia 1+ Hypochromasia 1+ Anisocytosis 1+ Urine Eosinophils None seen Sodium Level 138 mEQ/L (135-145) Potassium Level 4.4 mEQ/L (3.4-4.9) Chloride Level 99 mEQ/L (98-107) Carbon Dioxide Level 23 mEQ/L (20-30) Anion Gap 16 (5-15) H Blood Urea Nitrogen 105 mg/dL (7-23) H Creatinine 2.8 mg/dL (0.7-1.2) H Estimat Glomerular Filtration Rate 22.9 mL/min (>60) Glucose Level 133 mg/dL (74-106) H Uric Acid 13.2 mg/dL (3.0-7.5) H Calcium Level 7.6 mg/dL (8.6-10.2) L Phosphorus Level 5.3 mg/dL (2.5-4.8) H Magnesium Level 2.3 mg/dL (1.7-2.5) Total Bilirubin 0.5 mg/dL (0.0-1.2) Gamma Glutamyl Transpeptidase 38 U/L (8-61) Aspartate Amino Transf (AST/SGOT) 187 U/L (5-40) H Alanine Aminotransferase (ALT/SGPT) 95 U/L (3-41) H Alkaline Phosphatase 974 U/L (40-129) H Ammonia 65 umol/L (16-60) H Total Creatine Kinase 169 U/L (38-174) Troponin I < 0.30 ng/mL (<=0.30) C-Reactive Protein, Quantitative 22.3 mg/dL (< 0.5) H Pro-B-Type Natriuretic Peptide 2954 pg/mL (0-125) H Total Protein 4.8 g/dL (6.6-8.7) L Albumin 2.3 g/dL (3.5-5.2) L Globulin 2.5 g/dL Albumin/Globulin Ratio 0.9 (1.0-2.7) L Arterial Blood pH 7.278 (7.350-7.450) Arterial Blood Partial Pressure CO2 50.8 mmHg (35.0-45.0) H Arterial Blood Partial Pressure O2 54.3 mmHg (75.0-100.0) L Arterial Blood HCO3 23.0 mmol/L (22.0-26.0) Arterial Blood Oxygen Saturation 83.9 % (92.0-98.0) L Arterial Blood Base Excess -3.7 Julio Test Positive Microbiology Date/Time Source Procedure Growth Status 08/06/16 11:15 Blood Blood Culture - Preliminary NO GROWTH AFTER 24 HOURS Resulted 08/06/16 10:50 Blood Blood Culture - Preliminary NO GROWTH AFTER 24 HOURS Resulted 08/05/16 20:21 Nasal Nares MRSA Culture - Final Staphylococcus Aureus - Mrsa Complete NORI LE Aug 08, 2016 20:20
[2016-08-09] VITALS (24 sets, daily range): BP systolic 115–163; BP diastolic 65–86
[2016-08-09] MEDS: LORazepam Inj 2mg/ml 1ml IV PRN ×2 (02:06→06:09)
[2016-08-09] MEDS: Morphine Sulfate 4mg/ml Inj IVP PRN ×2 (04:36→16:27)
[2016-08-09 06:08] LABS: MEAN CORPUSCULAR HGB CONC 34.7 G/DL (32.0-36.0); MEAN CORPUSCULAR VOLUME 87 FL (80-99); PLATELET COUNT 46 K/UL (150-450); RED BLOOD COUNT 3.16 M/UL (4.70-6.10); RED CELL DISTRIBUTION WIDTH 14.9 % (11.6-14.8); WHITE BLOOD COUNT 17.2 K/UL (4.8-10.8)
[2016-08-09 06:35] LABS: ALBUMIN/GLOBULIN RATIO 0.9 (1.0-2.7); CALCIUM 7.9 mg/dL (8.6-10.2); CREATININE 1.5 mg/dL (0.7-1.2); MAGNESIUM 2.2 mg/dL (1.7-2.5); PHOSPHORUS 2.9 mg/dL (2.5-4.8); POTASSIUM 3.3 mEQ/L (3.4-4.9)
[2016-08-09 06:52] LABS: CRP QUANT 13.2 mg/dL (< 0.5); URIC ACID 9.7 mg/dL (3.0-7.5)
[2016-08-09 07:28] LABS: BAND NEUTROPHILS % (MANUAL) 2 % (0-8); EOSINOPHILS % (MANUAL) 1 % (0-3); LYMPHOCYTES % (MANUAL) 13 % (20-45); NEUTROPHILS % (MANUAL) 80 % (45-75); NUCLEATED RED BLOOD CELLS 4 /100 WBC; TOTAL CELLS COUNTED 100
[2016-08-09 07:30] LABS: ANISOCYTOSIS 1+; BASOPHILS % (MANUAL) 0 % (0-2); PLATELET ESTIMATE DECREASED; PLATELET MORPHOLOGY NORMAL
[2016-08-09 07:31] LABS: POLYCHROMASIA 1+
[2016-08-09] MEDS: Heparin 5000 units/ml inj SUBQ SCH ×2 (09:00→21:00)
[2016-08-09 09:33] LABS: OSMOLALITY SERUM 325 mOsm/kg (278-305)
[2016-08-09 09:39] LABS: FOLIC ACID 7.5 ng/mL (3.1-17.5)
[2016-08-09] MEDS: Allopurinol 100mg Tab NG SCH (09:49)
[2016-08-09] MEDS: Pantoprazole Inj IVP SCH ×2 (09:50→21:19)
--- NOTE | 2016-08-09 09:59 | Pulmonolgy Critical Care Note ---
Critical Care - Asmt/Plan Problems: (1) Acute hypoxemic respiratory failure (2) ATN (acute tubular necrosis) (3) Severe sepsis (4) Thrombocytopenia (5) Severe protein-calorie malnutrition (6) metatatic adenocarcinoma (7) Malignant pleural effusion Respiratory: monitor respiratory rate Cardiac: continue to monitor HR/BP Renal: F/U I&O, keep IV fluid Infectious Disease: check cultures Gastrointestinal: continue feedings/current rate Endocrine: monitor blood sugar, check TSH, check HgA1C, continue sliding scale insulin Hematologic: transfuse if hgb<8.5, other - f/u plt, dc cefepime, it might be the cause of thrombocytopenia Neurologic: keep patient comfortable Notes Reviewed: cardio, renal Discussed with: nurses, consultants, case finishing machine adjusterphysical therapist center manager - Objective Last 24 Hour Vital Signs Date Time Temp Pulse Resp B/P Pulse Ox O2 Delivery O2 Flow Rate FiO2 08/09/16 09:00 119 21 122/65 99 Mechanical Ventilator 40 08/09/16 08:00 98.2 115 22 121/71 99 Mechanical Ventilator 40 08/09/16 08:00 115 08/09/16 08:00 40 08/09/16 07:00 62 22 126/65 99 Mechanical Ventilator 40 08/09/16 06:48 122 21 40 08/09/16 06:00 63 22 115/73 96 Mechanical Ventilator 40 08/09/16 05:30 118 26 40 08/09/16 05:00 97.9 115 25 163/82 95 Mechanical Ventilator 40 08/09/16 04:27 40 08/09/16 04:00 111 22 147/65 97 Mechanical Ventilator 40 08/09/16 04:00 110 08/09/16 03:30 111 26 40 08/09/16 03:01 107 20 157/83 99 Mechanical Ventilator 40 08/09/16 02:00 107 20 147/78 99 Mechanical Ventilator 40 08/09/16 01:30 110 26 40 08/09/16 01:00 110 21 162/74 99 Mechanical Ventilator 40 08/09/16 00:00 108 08/09/16 00:00 97.9 108 20 128/77 99 Mechanical Ventilator 40 08/09/16 00:00 40 08/08/16 23:29 112 25 40 08/08/16 23:00 120 19 157/85 99 Mechanical Ventilator 40 08/08/16 22:00 118 20 137/81 99 Mechanical Ventilator 40 08/08/16 21:06 120 28 50 08/08/16 21:00 118 21 149/99 99 Mechanical Ventilator 40 08/08/16 20:00 40 08/08/16 20:00 115 08/08/16 20:00 97.9 120 20 139/71 99 Mechanical Ventilator 40 08/08/16 19:30 121 25 50 08/08/16 19:00 118 20 144/84 99 Mechanical Ventilator 40 08/08/16 18:00 119 20 157/87 99 Mechanical Ventilator 40 08/08/16 17:00 118 21 136/71 100 Mechanical Ventilator 40 08/08/16 16:56 118 20 40 08/08/16 16:00 114 08/08/16 16:00 40 08/08/16 16:00 98.2 118 20 128/72 100 Mechanical Ventilator 40 08/08/16 15:29 121 31 40 08/08/16 15:00 119 20 120/67 100 Mechanical Ventilator 40 08/08/16 14:00 128 20 123/83 100 Mechanical Ventilator 40 08/08/16 13:00 128 20 119/84 100 Mechanical Ventilator 40 08/08/16 12:50 121 30 40 08/08/16 12:00 40 08/08/16 12:00 121 08/08/16 12:00 98.3 121 20 138/76 100 Mechanical Ventilator 40 08/08/16 11:29 120 28 40 08/08/16 11:00 116 20 134/78 100 Mechanical Ventilator 50 08/08/16 10:00 113 18 131/71 100 Mechanical Ventilator 50 Status: awake Condition: critical HEENT: atraumatic Neck: full ROM Heart: HR/BP stable Abdomen: soft, non-tender Extremities: no C/C/E, edema Micro: Microbiology Date/Time Source Procedure Growth Status 08/06/16 11:15 Blood Blood Culture - Preliminary NO GROWTH AFTER 48 HOURS Resulted 08/06/16 10:50 Blood Blood Culture - Preliminary NO GROWTH AFTER 48 HOURS Resulted Critical Care - Subjective ROS Limited/Unobtainable: Yes ICU Day: 3 Intubation Day: 3 Condition: critical EKG Rhythm: Sinus Rhythm FI02: 40 Vent Support Breath Rate: 20 Vent Support Mode: AC Vent Tidal Volume: 600 Sputum Amount: Small PEEP: 5.0 PIP: 43 Fluids: 1/2 NS 50 cc.hour Tube Feeding Amount: 35 I&O: Intake and Output 08/08/16 08/09/16 19:00 07:00 Intake Total 1870 ml 1604 ml Output Total 1020 ml 1120 ml Balance 850 ml 484 ml Intake Free Water 100 ml 200 ml IV Total 1050 ml 984 ml Tube Feeding 420 ml 420 ml Blood Product 300 ml Output Urine Total 1020 ml 1120 ml CXR: no change, ET in good position ET-Tube: 7.5 ET Position: 24 Labs: Laboratory Tests Test 08/09/16 04:30 08/09/16 05:00 White Blood Count 17.2 K/UL (4.8-10.8) H Red Blood Count 3.16 M/UL (4.70-6.10) L Hemoglobin 9.5 G/DL (14.2-18.0) L Hematocrit 27.3 % (42.0-52.0) L Mean Corpuscular Volume 87 FL (80-99) Mean Corpuscular Hemoglobin 30.0 PG (27.0-31.0) Mean Corpuscular Hemoglobin Concent 34.7 G/DL (32.0-36.0) Red Cell Distribution Width 14.9 % (11.6-14.8) H Platelet Count 46 K/UL (150-450) L Mean Platelet Volume 10.0 FL (6.5-10.1) Neutrophils (%) (Auto) % (45.0-75.0) Lymphocytes (%) (Auto) % (20.0-45.0) Monocytes (%) (Auto) % (1.0-10.0) Eosinophils (%) (Auto) % (0.0-3.0) Basophils (%) (Auto) % (0.0-2.0) Differential Total Cells Counted 100 Neutrophils % (Manual) 80 % (45-75) H Lymphocytes % (Manual) 13 % (20-45) L Monocytes % (Manual) 4 % (1-10) Eosinophils % (Manual) 1 % (0-3) Basophils % (Manual) 0 % (0-2) Band Neutrophils 2 % (0-8) Nucleated Red Blood Cells 4 /100 WBC Platelet Estimate Decreased L Platelet Morphology Normal Polychromasia 1+ Anisocytosis 1+ Sodium Level 141 mEQ/L (135-145) Potassium Level 3.3 mEQ/L (3.4-4.9) L Chloride Level 102 mEQ/L (98-107) Carbon Dioxide Level 22 mEQ/L (20-30) Anion Gap 17 (5-15) H Blood Urea Nitrogen 90 mg/dL (7-23) H Creatinine 1.5 mg/dL (0.7-1.2) H Estimat Glomerular Filtration Rate 47.0 mL/min (>60) Glucose Level 191 mg/dL (74-106) H Uric Acid 9.7 mg/dL (3.0-7.5) H Calcium Level 7.9 mg/dL (8.6-10.2) L Phosphorus Level 2.9 mg/dL (2.5-4.8) Magnesium Level 2.2 mg/dL (1.7-2.5) Total Bilirubin 0.8 mg/dL (0.0-1.2) Gamma Glutamyl Transpeptidase 45 U/L (8-61) Aspartate Amino Transf (AST/SGOT) 162 U/L (5-40) H Alanine Aminotransferase (ALT/SGPT) 110 U/L (3-41) H Alkaline Phosphatase 980 U/L (40-129) H Total Creatine Kinase 170 U/L (38-174) C-Reactive Protein, Quantitative 13.2 mg/dL (< 0.5) H Pro-B-Type Natriuretic Peptide 1275 pg/mL (0-125) H Total Protein 5.0 g/dL (6.6-8.7) L Albumin 2.4 g/dL (3.5-5.2) L Globulin 2.6 g/dL Albumin/Globulin Ratio 0.9 (1.0-2.7) L Urine Eosinophils None seen BARBRA CARDENAS Aug 09, 2016 09:59
--- NOTE | 2016-08-09 14:06 | General Progress Note ---
Assessment/Plan Status: stable - from renal stand point Assessment/Plan (1) Acute hypoxemic respiratory failure on Vent (2) ATN (acute tubular necrosis), multifactorial , worsening, HyperKalemia ( Hyperkalemia and SCr improved) (3) Severe sepsis Possible healthcare-associated pneumonia. Sputum culture is pending. Chest x-ray shows diffuse infiltrates versus pulmonary edema, unchanged from previous. Possible urinary tract infection. Urine cultures, no growth to date. 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 (6) Severe protein-calorie malnutrition (7) Anemia PLAN: 1. antibiotics- Hydrocortisone 2. Follow up cultures. 3. Monitor CBC and electrolytes- treat high K 4. Monitor BMP. 5. Monitor chest x-ray. 6. Resp suport 7. Urine studies, monitor renal parameters- avoid nephrotoxics Subjective ROS Limited/Unobtainable: Yes Allergies: Coded Allergies: No Known Allergies (Unverified , 07/20/16) Objective Last 24 Hour Vital Signs Date Time Temp Pulse Resp B/P Pulse Ox O2 Delivery O2 Flow Rate FiO2 08/09/16 14:00 118 20 148/70 99 Mechanical Ventilator 40 08/09/16 13:00 118 20 144/86 99 Mechanical Ventilator 40 08/09/16 12:00 120 08/09/16 12:00 97.6 118 21 125/69 99 Mechanical Ventilator 40 08/09/16 12:00 40 08/09/16 11:00 113 21 140/71 99 Mechanical Ventilator 40 08/09/16 10:33 116 27 40 08/09/16 10:00 114 21 132/67 99 Mechanical Ventilator 40 08/09/16 09:00 119 21 122/65 99 Mechanical Ventilator 40 08/09/16 08:56 118 23 40 08/09/16 08:00 98.2 115 22 121/71 99 Mechanical Ventilator 40 08/09/16 08:00 115 08/09/16 08:00 40 08/09/16 07:00 62 22 126/65 99 Mechanical Ventilator 40 08/09/16 06:48 122 21 40 08/09/16 06:00 63 22 115/73 96 Mechanical Ventilator 40 08/09/16 05:30 118 26 40 08/09/16 05:00 97.9 115 25 163/82 95 Mechanical Ventilator 40 08/09/16 04:27 40 08/09/16 04:00 111 22 147/65 97 Mechanical Ventilator 40 08/09/16 04:00 110 08/09/16 03:30 111 26 40 08/09/16 03:01 107 20 157/83 99 Mechanical Ventilator 40 08/09/16 02:00 107 20 147/78 99 Mechanical Ventilator 40 08/09/16 01:30 110 26 40 08/09/16 01:00 110 21 162/74 99 Mechanical Ventilator 40 08/09/16 00:00 108 08/09/16 00:00 97.9 108 20 128/77 99 Mechanical Ventilator 40 08/09/16 00:00 40 08/08/16 23:29 112 25 40 08/08/16 23:00 120 19 157/85 99 Mechanical Ventilator 40 08/08/16 22:00 118 20 137/81 99 Mechanical Ventilator 40 08/08/16 21:06 120 28 50 08/08/16 21:00 118 21 149/99 99 Mechanical Ventilator 40 08/08/16 20:00 40 08/08/16 20:00 115 08/08/16 20:00 97.9 120 20 139/71 99 Mechanical Ventilator 40 08/08/16 19:30 121 25 50 08/08/16 19:00 118 20 144/84 99 Mechanical Ventilator 40 08/08/16 18:00 119 20 157/87 99 Mechanical Ventilator 40 08/08/16 17:00 118 21 136/71 100 Mechanical Ventilator 40 08/08/16 16:56 118 20 40 08/08/16 16:00 114 08/08/16 16:00 40 08/08/16 16:00 98.2 118 20 128/72 100 Mechanical Ventilator 40 08/08/16 15:29 121 31 40 08/08/16 15:00 119 20 120/67 100 Mechanical Ventilator 40 Intake and Output 08/08/16 08/09/16 19:00 07:00 Intake Total 1870 ml 1654 ml Output Total 1020 ml 1120 ml Balance 850 ml 534 ml Intake Free Water 100 ml 200 ml IV Total 1050 ml 1034 ml Tube Feeding 420 ml 420 ml Blood Product 300 ml Output Urine Total 1020 ml 1120 ml Laboratory Tests 08/09/16 04:30: White Blood Count 17.2H, Red Blood Count 3.16L, Hemoglobin 9.5L, Hematocrit 27.3L, Mean Corpuscular Volume 87, Mean Corpuscular Hemoglobin 30.0, Mean Corpuscular Hemoglobin Concent 34.7, Red Cell Distribution Width 14.9H, Platelet Count 46L, Mean Platelet Volume 10.0, Neutrophils (%) (Auto) , Lymphocytes (%) (Auto) , Monocytes (%) (Auto) , Eosinophils (%) (Auto) , Basophils (%) (Auto) , Differential Total Cells Counted 100, Neutrophils % ( Manual) 80H, Lymphocytes % (Manual) 13L, Monocytes % (Manual) 4, Eosinophils % ( Manual) 1, Basophils % (Manual) 0, Band Neutrophils 2, Nucleated Red Blood Cells 4, Platelet Estimate DecreasedL, Platelet Morphology Normal, Polychromasia 1+, Anisocytosis 1+, Sodium Level 141, Potassium Level 3.3L, Chloride Level 102, Carbon Dioxide Level 22, Anion Gap 17H, Blood Urea Nitrogen 90H, Creatinine 1.5H, Estimat Glomerular Filtration Rate 47.0, Glucose Level 191H, Uric Acid 9.7H, Calcium Level 7.9L, Phosphorus Level 2.9, Magnesium Level 2.2, Total Bilirubin 0.8, Gamma Glutamyl Transpeptidase 45, Aspartate Amino Transf (AST/SGOT) 162H, Alanine Aminotransferase (ALT/SGPT) 110H, Alkaline Phosphatase 980H, Total Creatine Kinase 170, C-Reactive Protein, Quantitative 13.2H, Pro-B-Type Natriuretic Peptide 1275H, Total Protein 5.0L, Albumin 2.4L, Globulin 2.6, Albumin/Globulin Ratio 0.9L 08/09/16 05:00: Urine Eosinophils None seen Height (Feet): 5 Height (Inches): 7.00 Weight (Pounds): 162 General Appearance: no apparent distress EENT: other - intubated Cardiovascular: tachycardia Respiratory/Chest: decreased breath sounds Abdomen: distended Objective other PE not changed LA FALK Aug 09, 2016 14:06
--- NOTE | 2016-08-09 15:08 | Diagnostic Imaging Report ---
Indications: DYSPNEA Technique: Portable AP chest Findings: Comparison: 08/08/16 Lines and tubes remain in place. Diffuse bilateral mixed interstitial and alveolar opacities, bibasal pleural effusions unchanged. Visualized portions of cardiomediastinal silhouette stable. No new abnormality identified. IMPRESSION: No change from one day prior
--- NOTE | 2016-08-09 19:23 | Cardiology Progress Note ---
Assessment/Plan Assessment/Plan respiratory failure profoudn sinus tachy demand related pulmonary infiltrates malignagnt pleural effusin abn lfts thrombocytopenia anemia renal failure coagulopathy ivf empiric abx vent support watch plt seem to be dropping renal fucntion better poor prognosis overall with met disease more responsive hemodynamically better Subjective ROS Limited/Unobtainable: Yes Subjective on vetn in isolation unlbe to commnicate Objective Last 24 Hour Vital Signs Date Time Temp Pulse Resp B/P Pulse Ox O2 Delivery O2 Flow Rate FiO2 08/09/16 19:00 133 20 148/80 99 Mechanical Ventilator 40 08/09/16 18:00 132 20 144/77 99 Mechanical Ventilator 40 08/09/16 17:02 136 32 40 08/09/16 17:00 128 20 136/67 99 Mechanical Ventilator 40 08/09/16 16:57 98.4 08/09/16 16:00 40 08/09/16 16:00 98.4 120 20 141/78 99 Mechanical Ventilator 40 08/09/16 16:00 124 08/09/16 15:00 120 20 128/81 99 Mechanical Ventilator 40 08/09/16 14:58 133 39 40 08/09/16 14:00 118 20 148/70 99 Mechanical Ventilator 40 08/09/16 13:00 118 20 144/86 99 Mechanical Ventilator 40 08/09/16 12:53 122 40 40 08/09/16 12:00 120 08/09/16 12:00 97.6 118 21 125/69 99 Mechanical Ventilator 40 08/09/16 12:00 40 08/09/16 11:00 113 21 140/71 99 Mechanical Ventilator 40 08/09/16 10:33 116 27 40 08/09/16 10:00 114 21 132/67 99 Mechanical Ventilator 40 08/09/16 09:00 119 21 122/65 99 Mechanical Ventilator 40 08/09/16 08:56 118 23 40 08/09/16 08:00 98.2 115 22 121/71 99 Mechanical Ventilator 40 08/09/16 08:00 115 08/09/16 08:00 40 08/09/16 07:00 62 22 126/65 99 Mechanical Ventilator 40 08/09/16 06:48 122 21 40 08/09/16 06:00 63 22 115/73 96 Mechanical Ventilator 40 08/09/16 05:30 118 26 40 08/09/16 05:00 97.9 115 25 163/82 95 Mechanical Ventilator 40 08/09/16 04:27 40 08/09/16 04:00 111 22 147/65 97 Mechanical Ventilator 40 08/09/16 04:00 110 08/09/16 03:30 111 26 40 08/09/16 03:01 107 20 157/83 99 Mechanical Ventilator 40 08/09/16 02:00 107 20 147/78 99 Mechanical Ventilator 40 08/09/16 01:30 110 26 40 08/09/16 01:00 110 21 162/74 99 Mechanical Ventilator 40 08/09/16 00:00 108 08/09/16 00:00 97.9 108 20 128/77 99 Mechanical Ventilator 40 08/09/16 00:00 40 08/08/16 23:29 112 25 40 08/08/16 23:00 120 19 157/85 99 Mechanical Ventilator 40 08/08/16 22:00 118 20 137/81 99 Mechanical Ventilator 40 08/08/16 21:06 120 28 50 08/08/16 21:00 118 21 149/99 99 Mechanical Ventilator 40 08/08/16 20:00 40 08/08/16 20:00 115 08/08/16 20:00 97.9 120 20 139/71 99 Mechanical Ventilator 40 08/08/16 19:30 121 25 50 General Appearance: alert, on vent, patient on isolation Neck: JVD Cardiovascular: normal rate, tachycardia Respiratory/Chest: decreased breath sounds Abdomen: normal bowel sounds, non tender, soft Extremities: no swelling Intake and Output 08/08/16 08/09/16 19:00 07:00 Intake Total 1870 ml 1654 ml Output Total 1020 ml 1120 ml Balance 850 ml 534 ml Intake Free Water 100 ml 200 ml IV Total 1050 ml 1034 ml Tube Feeding 420 ml 420 ml Blood Product 300 ml Output Urine Total 1020 ml 1120 ml Laboratory Tests Test 08/09/16 04:30 08/09/16 05:00 White Blood Count 17.2 K/UL (4.8-10.8) H Red Blood Count 3.16 M/UL (4.70-6.10) L Hemoglobin 9.5 G/DL (14.2-18.0) L Hematocrit 27.3 % (42.0-52.0) L Mean Corpuscular Volume 87 FL (80-99) Mean Corpuscular Hemoglobin 30.0 PG (27.0-31.0) Mean Corpuscular Hemoglobin Concent 34.7 G/DL (32.0-36.0) Red Cell Distribution Width 14.9 % (11.6-14.8) H Platelet Count 46 K/UL (150-450) L Mean Platelet Volume 10.0 FL (6.5-10.1) Neutrophils (%) (Auto) % (45.0-75.0) Lymphocytes (%) (Auto) % (20.0-45.0) Monocytes (%) (Auto) % (1.0-10.0) Eosinophils (%) (Auto) % (0.0-3.0) Basophils (%) (Auto) % (0.0-2.0) Differential Total Cells Counted 100 Neutrophils % (Manual) 80 % (45-75) H Lymphocytes % (Manual) 13 % (20-45) L Monocytes % (Manual) 4 % (1-10) Eosinophils % (Manual) 1 % (0-3) Basophils % (Manual) 0 % (0-2) Band Neutrophils 2 % (0-8) Nucleated Red Blood Cells 4 /100 WBC Platelet Estimate Decreased L Platelet Morphology Normal Polychromasia 1+ Anisocytosis 1+ Sodium Level 141 mEQ/L (135-145) Potassium Level 3.3 mEQ/L (3.4-4.9) L Chloride Level 102 mEQ/L (98-107) Carbon Dioxide Level 22 mEQ/L (20-30) Anion Gap 17 (5-15) H Blood Urea Nitrogen 90 mg/dL (7-23) H Creatinine 1.5 mg/dL (0.7-1.2) H Estimat Glomerular Filtration Rate 47.0 mL/min (>60) Glucose Level 191 mg/dL (74-106) H Uric Acid 9.7 mg/dL (3.0-7.5) H Calcium Level 7.9 mg/dL (8.6-10.2) L Phosphorus Level 2.9 mg/dL (2.5-4.8) Magnesium Level 2.2 mg/dL (1.7-2.5) Total Bilirubin 0.8 mg/dL (0.0-1.2) Gamma Glutamyl Transpeptidase 45 U/L (8-61) Aspartate Amino Transf (AST/SGOT) 162 U/L (5-40) H Alanine Aminotransferase (ALT/SGPT) 110 U/L (3-41) H Alkaline Phosphatase 980 U/L (40-129) H Total Creatine Kinase 170 U/L (38-174) C-Reactive Protein, Quantitative 13.2 mg/dL (< 0.5) H Pro-B-Type Natriuretic Peptide 1275 pg/mL (0-125) H Total Protein 5.0 g/dL (6.6-8.7) L Albumin 2.4 g/dL (3.5-5.2) L Globulin 2.6 g/dL Albumin/Globulin Ratio 0.9 (1.0-2.7) L Urine Eosinophils None seen NORI LE Aug 09, 2016 19:23
--- NOTE | 2016-08-09 20:32 | Cardiology Report ---
APPROVED REPORT EKG Measurement Heart [id number] HI [id number] [id number] Sinus tachycardia Possible Left atrial enlargement Borderline ECG
[2016-08-10] VITALS (24 sets, daily range): BP systolic 97–148; BP diastolic 62–94
[2016-08-10] MEDS: Morphine Sulfate 4mg/ml Inj IVP PRN ×2 (01:53→19:56)
[2016-08-10 05:24] LABS: MEAN CORPUSCULAR HEMOGLOBIN 29.6 PG (27.0-31.0); MEAN CORPUSCULAR HGB CONC 34.8 G/DL (32.0-36.0); MEAN CORPUSCULAR VOLUME 85 FL (80-99); MEAN PLATELET VOLUME 10.5 FL (6.5-10.1); PLATELET COUNT 22 K/UL (150-450); RED BLOOD COUNT 2.68 M/UL (4.70-6.10); RED CELL DISTRIBUTION WIDTH 15.7 % (11.6-14.8); WHITE BLOOD COUNT 18.2 K/UL (4.8-10.8)
[2016-08-10 05:31] LABS: INR 1.3 (0.9-1.1); PROTHROMBIN TIME 12.8 SEC (9.30-11.50)
[2016-08-10 06:05] LABS: ALANINE AMINOTRANSFERASE 157 U/L (3-41); ALBUMIN/GLOBULIN RATIO 0.9 (1.0-2.7); ANION GAP 14 (5-15); ASPARTATE AMINO TRANSFERASE 240 U/L (5-40); CALCIUM 8.3 mg/dL (8.6-10.2); CARBON DIOXIDE 25 mEQ/L (20-30); CHLORIDE 109 mEQ/L (98-107); CREATININE 1.2 mg/dL (0.7-1.2); GLOMERULAR FILTRATION RATE > 60 mL/min (>60); HEMOLYSIS 8; MAGNESIUM 2.2 mg/dL (1.7-2.5); PHOSPHORUS 2.9 mg/dL (2.5-4.8); POTASSIUM 4.2 mEQ/L (3.4-4.9); SODIUM 148 mEQ/L (135-145); TOTAL PROTEIN 4.9 g/dL (6.6-8.7)
[2016-08-10 06:56] LABS: CRP QUANT 12.3 mg/dL (< 0.5); URIC ACID 8.8 mg/dL (3.0-7.5)
[2016-08-10 07:39] LABS: BAND NEUTROPHILS % (MANUAL) 1 % (0-8); BASOPHILS % (MANUAL) 0 % (0-2); EOSINOPHILS % (MANUAL) 0 % (0-3); LYMPHOCYTES % (MANUAL) 10 % (20-45); NEUTROPHILS % (MANUAL) 81 % (45-75); NUCLEATED RED BLOOD CELLS 13 /100 WBC; PLATELET ESTIMATE DECREASED; TOTAL CELLS COUNTED 100
[2016-08-10 07:40] LABS: ANISOCYTOSIS 1+; HYPOCHROMASIA 3+; PLATELET MORPHOLOGY NORMAL; POIKILOCYTOSIS 1+; POLYCHROMASIA 1+; SPHEROCYTES 2+
[2016-08-10 10:22] LABS: ABG BASE EXCESS 0.3; ABG PCO2 38.6 mmHg (35.0-45.0)
[2016-08-10 10:23] LABS: ABG ALLEN TEST POSITIVE
--- NOTE | 2016-08-10 10:43 | Pulmonolgy Critical Care Note ---
Critical Care - Asmt/Plan Problems: (1) Acute hypoxemic respiratory failure (2) ATN (acute tubular necrosis) (3) Severe sepsis (4) Thrombocytopenia (5) Upper GI bleeding (6) Malignant pleural effusion (7) metatatic adenocarcinoma (8) Severe protein-calorie malnutrition Respiratory: monitor respiratory rate, adjust FIO2 Cardiac: continue to monitor HR/BP Renal: F/U I&O, keep IV fluid Infectious Disease: check cultures Gastrointestinal: hold feedings Endocrine: monitor blood sugar, check TSH Hematologic: monitor H/H, transfuse if hgb<8.5 - one unit today Neurologic: PRN Ativan, PRN Morphine Affect: PRN ativan Prophylaxis: Protonix, Heparin, SCDs Time Spent (Minutes): 40 Notes Reviewed: cardio, renal Discussed with: nurses, consultants, embedded case managereducation managers - Objective Last 24 Hour Vital Signs Date Time Temp Pulse Resp B/P Pulse Ox O2 Delivery O2 Flow Rate FiO2 08/10/16 07:15 116 22 40 08/10/16 07:00 116 16 97/76 100 Mechanical Ventilator 40 08/10/16 06:00 115 14 133/87 100 Mechanical Ventilator 40 08/10/16 05:30 114 22 40 08/10/16 05:00 112 16 125/74 99 Mechanical Ventilator 40 08/10/16 04:00 97.1 112 14 139/69 99 Mechanical Ventilator 40 08/10/16 04:00 40 08/10/16 04:00 111 08/10/16 03:30 113 24 40 08/10/16 03:00 114 17 111/72 99 Mechanical Ventilator 40 08/10/16 02:00 113 19 126/64 95 Mechanical Ventilator 40 08/10/16 01:30 119 24 40 08/10/16 01:00 117 19 132/65 99 Mechanical Ventilator 40 08/10/16 00:00 119 22 120/79 98 Mechanical Ventilator 40 08/10/16 00:00 40 08/10/16 00:00 122 08/09/16 23:10 126 27 40 08/09/16 23:00 97.0 121 22 142/72 100 Mechanical Ventilator 40 08/09/16 22:00 124 24 145/75 100 Mechanical Ventilator 40 08/09/16 21:23 124 26 40 08/09/16 21:00 124 24 136/71 100 Mechanical Ventilator 40 08/09/16 20:00 98.1 131 29 132/75 100 Mechanical Ventilator 40 08/09/16 20:00 40 08/09/16 20:00 132 08/09/16 19:10 132 25 40 08/09/16 19:00 133 20 148/80 99 Mechanical Ventilator 40 08/09/16 18:00 132 20 144/77 99 Mechanical Ventilator 40 08/09/16 17:02 136 32 40 08/09/16 17:00 128 20 136/67 99 Mechanical Ventilator 40 08/09/16 16:57 98.4 08/09/16 16:00 40 08/09/16 16:00 98.4 120 20 141/78 99 Mechanical Ventilator 40 08/09/16 16:00 124 08/09/16 15:00 120 20 128/81 99 Mechanical Ventilator 40 08/09/16 14:58 133 39 40 08/09/16 14:00 118 20 148/70 99 Mechanical Ventilator 40 08/09/16 13:00 118 20 144/86 99 Mechanical Ventilator 40 08/09/16 12:53 122 40 40 08/09/16 12:00 120 08/09/16 12:00 97.6 118 21 125/69 99 Mechanical Ventilator 40 08/09/16 12:00 40 08/09/16 11:00 113 21 140/71 99 Mechanical Ventilator 40 Status: awake Condition: critical HEENT: atraumatic Neck: full ROM Heart: HR/BP stable, HR/BP unstable Abdomen: soft, active bowel sounds Extremities: no C/C/E, edema Critical Care - Subjective ROS Limited/Unobtainable: No ICU Day: 4 Intubation Day: 4 Condition: critical EKG Rhythm: Sinus Rhythm FI02: 40 Vent Support Breath Rate: 20 Vent Support Mode: AC Vent Tidal Volume: 600 Sputum Amount: Small PEEP: 5.0 PIP: 38 Fluids: 1/2 NS 50 cc.hour Tube Feeding Amount: 35 I&O: Intake and Output 08/09/16 08/10/16 19:00 07:00 Intake Total 1460 ml 600 ml Output Total 830 ml 1180 ml Balance 630 ml -580 ml Intake Free Water 100 ml IV Total 890 ml 600 ml Tube Feeding 420 ml Other 50 ml Output Urine Total 830 ml 930 ml Other 250 ml CXR: no change ET-Tube: 7.5 ET Position: 24 Labs: Laboratory Tests Test 08/10/16 04:10 08/10/16 04:30 08/10/16 10:16 White Blood Count 18.2 K/UL (4.8-10.8) H Red Blood Count 2.68 M/UL (4.70-6.10) L Hemoglobin 7.9 G/DL (14.2-18.0) L Hematocrit 22.8 % (42.0-52.0) L Mean Corpuscular Volume 85 FL (80-99) Mean Corpuscular Hemoglobin 29.6 PG (27.0-31.0) Mean Corpuscular Hemoglobin Concent 34.8 G/DL (32.0-36.0) Red Cell Distribution Width 15.7 % (11.6-14.8) H Platelet Count 22 K/UL (150-450) #L Mean Platelet Volume 10.5 FL (6.5-10.1) H Neutrophils (%) (Auto) % (45.0-75.0) Lymphocytes (%) (Auto) % (20.0-45.0) Monocytes (%) (Auto) % (1.0-10.0) Eosinophils (%) (Auto) % (0.0-3.0) Basophils (%) (Auto) % (0.0-2.0) Differential Total Cells Counted 100 Neutrophils % (Manual) 81 % (45-75) H Lymphocytes % (Manual) 10 % (20-45) L Monocytes % (Manual) 8 % (1-10) Eosinophils % (Manual) 0 % (0-3) Basophils % (Manual) 0 % (0-2) Band Neutrophils 1 % (0-8) Nucleated Red Blood Cells 13 /100 WBC Platelet Estimate Decreased L Platelet Morphology Normal Polychromasia 1+ Hypochromasia 3+ Poikilocytosis 1+ Anisocytosis 1+ Spherocytes 2+ Prothrombin Time 12.8 SEC (9.30-11.50) H Prothromb Time International Ratio 1.3 (0.9-1.1) H Activated Partial Thromboplast Time 28 SEC (23-33) Sodium Level 148 mEQ/L (135-145) H Potassium Level 4.2 mEQ/L (3.4-4.9) Chloride Level 109 mEQ/L (98-107) H Carbon Dioxide Level 25 mEQ/L (20-30) Anion Gap 14 (5-15) Blood Urea Nitrogen 86 mg/dL (7-23) H Creatinine 1.2 mg/dL (0.7-1.2) Estimat Glomerular Filtration Rate > 60 mL/min (>60) Glucose Level 144 mg/dL (74-106) H Uric Acid 8.8 mg/dL (3.0-7.5) H Calcium Level 8.3 mg/dL (8.6-10.2) L Phosphorus Level 2.9 mg/dL (2.5-4.8) Magnesium Level 2.2 mg/dL (1.7-2.5) Total Bilirubin 0.8 mg/dL (0.0-1.2) Gamma Glutamyl Transpeptidase 43 U/L (8-61) Aspartate Amino Transf (AST/SGOT) 240 U/L (5-40) H Alanine Aminotransferase (ALT/SGPT) 157 U/L (3-41) H Alkaline Phosphatase 961 U/L (40-129) H C-Reactive Protein, Quantitative 12.3 mg/dL (< 0.5) H Pro-B-Type Natriuretic Peptide 1097 pg/mL (0-125) H Total Protein 4.9 g/dL (6.6-8.7) L Albumin 2.4 g/dL (3.5-5.2) L Globulin 2.5 g/dL Albumin/Globulin Ratio 0.9 (1.0-2.7) L Urine Eosinophils None seen Arterial Blood pH 7.424 (7.350-7.450) Arterial Blood Partial Pressure CO2 38.6 mmHg (35.0-45.0) Arterial Blood Partial Pressure O2 82.0 mmHg (75.0-100.0) Arterial Blood HCO3 24.7 mmol/L (22.0-26.0) Arterial Blood Oxygen Saturation 95.1 % (92.0-98.0) Arterial Blood Base Excess 0.3 Julio Test Positive BARBRA CARDENAS Aug 10, 2016 10:43
--- NOTE | 2016-08-10 10:58 | General Progress Note ---
Assessment/Plan Status: unchanged Assessment/Plan (1) Acute hypoxemic respiratory failure on Vent (2) ATN (acute tubular necrosis), multifactorial , IMPROVED, HyperKalemia ( Hyperkalemia and SCr improved) (3) Severe sepsis Possible healthcare-associated pneumonia. Sputum culture is pending. Chest x-ray shows diffuse infiltrates versus pulmonary edema, unchanged from previous. Possible urinary tract infection. Urine cultures, no growth to date. 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 (6) Severe protein-calorie malnutrition (7) Anemia PLAN: 1. antibiotics- Hydrocortisone 2. Follow up cultures. 3. Monitor CBC and electrolytes- treat high K 4. Monitor BMP. 5. Monitor chest x-ray. 6. Resp suport 7. Urine studies, monitor renal parameters- avoid nephrotoxics Subjective ROS Limited/Unobtainable: Yes Allergies: Coded Allergies: No Known Allergies (Unverified , 07/20/16) Objective Last 24 Hour Vital Signs Date Time Temp Pulse Resp B/P Pulse Ox O2 Delivery O2 Flow Rate FiO2 08/10/16 07:15 116 22 40 08/10/16 07:00 116 16 97/76 100 Mechanical Ventilator 40 08/10/16 06:00 115 14 133/87 100 Mechanical Ventilator 40 08/10/16 05:30 114 22 40 08/10/16 05:00 112 16 125/74 99 Mechanical Ventilator 40 08/10/16 04:00 97.1 112 14 139/69 99 Mechanical Ventilator 40 08/10/16 04:00 40 08/10/16 04:00 111 08/10/16 03:30 113 24 40 08/10/16 03:00 114 17 111/72 99 Mechanical Ventilator 40 08/10/16 02:00 113 19 126/64 95 Mechanical Ventilator 40 08/10/16 01:30 119 24 40 08/10/16 01:00 117 19 132/65 99 Mechanical Ventilator 40 08/10/16 00:00 119 22 120/79 98 Mechanical Ventilator 40 08/10/16 00:00 40 08/10/16 00:00 122 08/09/16 23:10 126 27 40 08/09/16 23:00 97.0 121 22 142/72 100 Mechanical Ventilator 40 08/09/16 22:00 124 24 145/75 100 Mechanical Ventilator 40 08/09/16 21:23 124 26 40 08/09/16 21:00 124 24 136/71 100 Mechanical Ventilator 40 08/09/16 20:00 98.1 131 29 132/75 100 Mechanical Ventilator 40 08/09/16 20:00 40 08/09/16 20:00 132 08/09/16 19:10 132 25 40 08/09/16 19:00 133 20 148/80 99 Mechanical Ventilator 40 08/09/16 18:00 132 20 144/77 99 Mechanical Ventilator 40 08/09/16 17:02 136 32 40 08/09/16 17:00 128 20 136/67 99 Mechanical Ventilator 40 08/09/16 16:57 98.4 08/09/16 16:00 40 08/09/16 16:00 98.4 120 20 141/78 99 Mechanical Ventilator 40 08/09/16 16:00 124 08/09/16 15:00 120 20 128/81 99 Mechanical Ventilator 40 08/09/16 14:58 133 39 40 08/09/16 14:00 118 20 148/70 99 Mechanical Ventilator 40 08/09/16 13:00 118 20 144/86 99 Mechanical Ventilator 40 08/09/16 12:53 122 40 40 08/09/16 12:00 120 08/09/16 12:00 97.6 118 21 125/69 99 Mechanical Ventilator 40 08/09/16 12:00 40 08/09/16 11:00 113 21 140/71 99 Mechanical Ventilator 40 Intake and Output 08/09/16 08/10/16 19:00 07:00 Intake Total 1460 ml 600 ml Output Total 830 ml 1180 ml Balance 630 ml -580 ml Intake Free Water 100 ml IV Total 890 ml 600 ml Tube Feeding 420 ml Other 50 ml Output Urine Total 830 ml 930 ml Other 250 ml Laboratory Tests 08/10/16 04:10: White Blood Count 18.2H, Red Blood Count 2.68L, Hemoglobin 7.9L, Hematocrit 22.8L, Mean Corpuscular Volume 85, Mean Corpuscular Hemoglobin 29.6, Mean Corpuscular Hemoglobin Concent 34.8, Red Cell Distribution Width 15.7H, Platelet Count 22#L, Mean Platelet Volume 10.5H, Neutrophils (%) (Auto) , Lymphocytes (%) (Auto) , Monocytes (%) (Auto) , Eosinophils (%) (Auto) , Basophils (%) (Auto) , Differential Total Cells Counted 100, Neutrophils % ( Manual) 81H, Lymphocytes % (Manual) 10L, Monocytes % (Manual) 8, Eosinophils % ( Manual) 0, Basophils % (Manual) 0, Band Neutrophils 1, Nucleated Red Blood Cells 13, Platelet Estimate DecreasedL, Platelet Morphology Normal, Polychromasia 1+, Hypochromasia 3+, Poikilocytosis 1+, Anisocytosis 1+, Spherocytes 2+, Prothrombin Time 12.8H, Prothromb Time International Ratio 1.3H , Activated Partial Thromboplast Time 28, Sodium Level 148H, Potassium Level 4.2 , Chloride Level 109H, Carbon Dioxide Level 25, Anion Gap 14, Blood Urea Nitrogen 86H, Creatinine 1.2, Estimat Glomerular Filtration Rate > 60, Glucose Level 144H, Uric Acid 8.8H, Calcium Level 8.3L, Phosphorus Level 2.9, Magnesium Level 2.2, Total Bilirubin 0.8, Gamma Glutamyl Transpeptidase 43, Aspartate Amino Transf (AST/SGOT) 240H, Alanine Aminotransferase (ALT/SGPT) 157H, Alkaline Phosphatase 961H, C-Reactive Protein, Quantitative 12.3H, Pro-B-Type Natriuretic Peptide 1097H, Total Protein 4.9L, Albumin 2.4L, Globulin 2.5, Albumin/Globulin Ratio 0.9L 08/10/16 04:30: Urine Eosinophils None seen 08/10/16 10:16: Arterial Blood pH 7.424, Arterial Blood Partial Pressure CO2 38.6, Arterial Blood Partial Pressure O2 82.0, Arterial Blood HCO3 24.7, Arterial Blood Oxygen Saturation 95.1, Arterial Blood Base Excess 0.3, Julio Test Positive Height (Feet): 5 Height (Inches): 7.00 Weight (Pounds): 162 General Appearance: no apparent distress Cardiovascular: tachycardia Respiratory/Chest: decreased breath sounds Abdomen: distended Objective other PE not changed LA FALK Aug 10, 2016 10:58
[2016-08-10] MEDS: Pantoprazole Inj IVP SCH ×2 (10:59→20:55)
[2016-08-10] MEDS: Allopurinol 100mg Tab NG SCH (10:59)
--- NOTE | 2016-08-10 12:09 | Infectious Diseases Prog Note ---
Assessment/Plan Assessment/Plan ASSESSMENT: 66 y/o male with: // Possible HCAP - SCx pending - CXR 08/09: Diffuse bilateral mixed interstitial and alveolar opacities, bibasal pleural effusions unchanged // Possible UTI - UCx(-) // Severe sepsis - improving lactic acidosis // Leukocytosis - persistent, improved ( malignancy contributing ) // Low grade fever - resolved ( malignancy contributing ) // Acute VDRF - intubated 08/06 // Recurrent malignant pleural effusion - SP thoracentesis 08/01 - Cx(-), cytology(+) adenocarcinoma // ARF on CKD3 - improved // Metastatic adenoCA // Elevated ALP ?bone mets // Thrombocytopenia // VRE colonized // NKDA // Full Code PLAN: - continue levaquin d# 2 ( ABX d# 5 / 7-10 ) ( 08/09 SP IV vancomycin, cefepime d# 3 ) - f/u cultures - monitor CBC, temperatures - monitor BMP - monitor CXR - vent support, wean as tolerated - poor overall prognosis Subjective Allergies: Coded Allergies: No Known Allergies (Unverified , 07/20/16) Subjective fevers resolved Cx NGTD noted ABX changed Objective Vital Signs Last 24 Hour Vital Signs Date Time Temp Pulse Resp B/P Pulse Ox O2 Delivery O2 Flow Rate FiO2 08/10/16 11:15 131 22 40 08/10/16 09:15 126 21 40 08/10/16 07:15 116 22 40 08/10/16 07:00 116 16 97/76 100 Mechanical Ventilator 40 08/10/16 06:00 115 14 133/87 100 Mechanical Ventilator 40 08/10/16 05:30 114 22 40 08/10/16 05:00 112 16 125/74 99 Mechanical Ventilator 40 08/10/16 04:00 97.1 112 14 139/69 99 Mechanical Ventilator 40 08/10/16 04:00 40 08/10/16 04:00 111 08/10/16 03:30 113 24 40 08/10/16 03:00 114 17 111/72 99 Mechanical Ventilator 40 08/10/16 02:00 113 19 126/64 95 Mechanical Ventilator 40 08/10/16 01:30 119 24 40 08/10/16 01:00 117 19 132/65 99 Mechanical Ventilator 40 08/10/16 00:00 119 22 120/79 98 Mechanical Ventilator 40 08/10/16 00:00 40 08/10/16 00:00 122 08/09/16 23:10 126 27 40 08/09/16 23:00 97.0 121 22 142/72 100 Mechanical Ventilator 40 08/09/16 22:00 124 24 145/75 100 Mechanical Ventilator 40 08/09/16 21:23 124 26 40 08/09/16 21:00 124 24 136/71 100 Mechanical Ventilator 40 08/09/16 20:00 98.1 131 29 132/75 100 Mechanical Ventilator 40 08/09/16 20:00 40 08/09/16 20:00 132 08/09/16 19:10 132 25 40 08/09/16 19:00 133 20 148/80 99 Mechanical Ventilator 40 08/09/16 18:00 132 20 144/77 99 Mechanical Ventilator 40 08/09/16 17:02 136 32 40 08/09/16 17:00 128 20 136/67 99 Mechanical Ventilator 40 08/09/16 16:57 98.4 08/09/16 16:00 40 08/09/16 16:00 98.4 120 20 141/78 99 Mechanical Ventilator 40 08/09/16 16:00 124 08/09/16 15:00 120 20 128/81 99 Mechanical Ventilator 40 08/09/16 14:58 133 39 40 08/09/16 14:00 118 20 148/70 99 Mechanical Ventilator 40 08/09/16 13:00 118 20 144/86 99 Mechanical Ventilator 40 08/09/16 12:53 122 40 40 Height (Feet): 5 Height (Inches): 7.00 Weight (Pounds): 162 General Appearance: cachetic, other - intubated Respiratory/Chest: decreased breath sounds Cardiovascular: normal rate, regular rhythm Abdomen: normal bowel sounds, soft, non tender, non distended Laboratory Tests Test 08/10/16 04:10 08/10/16 04:30 08/10/16 10:16 White Blood Count 18.2 K/UL (4.8-10.8) H Red Blood Count 2.68 M/UL (4.70-6.10) L Hemoglobin 7.9 G/DL (14.2-18.0) L Hematocrit 22.8 % (42.0-52.0) L Mean Corpuscular Volume 85 FL (80-99) Mean Corpuscular Hemoglobin 29.6 PG (27.0-31.0) Mean Corpuscular Hemoglobin Concent 34.8 G/DL (32.0-36.0) Red Cell Distribution Width 15.7 % (11.6-14.8) H Platelet Count 22 K/UL (150-450) #L Mean Platelet Volume 10.5 FL (6.5-10.1) H Neutrophils (%) (Auto) % (45.0-75.0) Lymphocytes (%) (Auto) % (20.0-45.0) Monocytes (%) (Auto) % (1.0-10.0) Eosinophils (%) (Auto) % (0.0-3.0) Basophils (%) (Auto) % (0.0-2.0) Differential Total Cells Counted 100 Neutrophils % (Manual) 81 % (45-75) H Lymphocytes % (Manual) 10 % (20-45) L Monocytes % (Manual) 8 % (1-10) Eosinophils % (Manual) 0 % (0-3) Basophils % (Manual) 0 % (0-2) Band Neutrophils 1 % (0-8) Nucleated Red Blood Cells 13 /100 WBC Platelet Estimate Decreased L Platelet Morphology Normal Polychromasia 1+ Hypochromasia 3+ Poikilocytosis 1+ Anisocytosis 1+ Spherocytes 2+ Prothrombin Time 12.8 SEC (9.30-11.50) H Prothromb Time International Ratio 1.3 (0.9-1.1) H Activated Partial Thromboplast Time 28 SEC (23-33) Sodium Level 148 mEQ/L (135-145) H Potassium Level 4.2 mEQ/L (3.4-4.9) Chloride Level 109 mEQ/L (98-107) H Carbon Dioxide Level 25 mEQ/L (20-30) Anion Gap 14 (5-15) Blood Urea Nitrogen 86 mg/dL (7-23) H Creatinine 1.2 mg/dL (0.7-1.2) Estimat Glomerular Filtration Rate > 60 mL/min (>60) Glucose Level 144 mg/dL (74-106) H Uric Acid 8.8 mg/dL (3.0-7.5) H Calcium Level 8.3 mg/dL (8.6-10.2) L Phosphorus Level 2.9 mg/dL (2.5-4.8) Magnesium Level 2.2 mg/dL (1.7-2.5) Total Bilirubin 0.8 mg/dL (0.0-1.2) Gamma Glutamyl Transpeptidase 43 U/L (8-61) Aspartate Amino Transf (AST/SGOT) 240 U/L (5-40) H Alanine Aminotransferase (ALT/SGPT) 157 U/L (3-41) H Alkaline Phosphatase 961 U/L (40-129) H C-Reactive Protein, Quantitative 12.3 mg/dL (< 0.5) H Pro-B-Type Natriuretic Peptide 1097 pg/mL (0-125) H Total Protein 4.9 g/dL (6.6-8.7) L Albumin 2.4 g/dL (3.5-5.2) L Globulin 2.5 g/dL Albumin/Globulin Ratio 0.9 (1.0-2.7) L Urine Eosinophils None seen Arterial Blood pH 7.424 (7.350-7.450) Arterial Blood Partial Pressure CO2 38.6 mmHg (35.0-45.0) Arterial Blood Partial Pressure O2 82.0 mmHg (75.0-100.0) Arterial Blood HCO3 24.7 mmol/L (22.0-26.0) Arterial Blood Oxygen Saturation 95.1 % (92.0-98.0) Arterial Blood Base Excess 0.3 Julio Test Positive Current Medications Medications (Trade) Dose Ordered Sig/Scot Route PRN Reason Start Time Stop Time Status Last Admin Dose Admin Acetaminophen (Tylenol) 650 mg Q4H PRN ORAL FEVER 08/06/16 22:45 09/05/16 22:44 08/07/16 18:10 Albuterol/ Ipratropium (DuoNeb 0.5-3(2.5)mg/3ml) 3 ml EVERY 4 HOURS PRN HHN Shortness of Breath 08/07/16 01:00 08/12/16 00:59 Allopurinol 200 mg 200 mg DAILY NG 08/08/16 15:00 09/07/16 14:59 08/10/16 10:59 Dextrose (Dextrose 50%) STAT PRN IV Hypoglycemia 08/07/16 18:45 09/06/16 18:44 Levofloxacin (Levaquin) 100 ml @ 100 mls/hr Q24H IVPB 08/09/16 11:30 08/16/16 11:29 08/10/16 11:30 Lorazepam (Ativan 2mg/ml 1ml) 2 mg EVERY 2 HOURS PRN IV For Anxiety 08/06/16 22:00 08/13/16 21:59 08/09/16 06:09 Morphine Sulfate (Morphine Sulfate) 4 mg EVERY 4 HOURS PRN IVP Severe Pain (Pain Scale 7-10) 08/07/16 01:00 08/14/16 00:59 08/10/16 01:53 Ondansetron HCl (Zofran) 4 mg Q6H PRN IVP Nausea & Vomiting 08/07/16 00:45 09/06/16 00:44 Pantoprazole 40 mg 40 mg EVERY 12 HOURS IVP 08/07/16 09:00 09/06/16 08:59 08/10/16 10:59 Polyethylene Glycol (Miralax) 17 gm DAILYPRN PRN ORAL Constipation 08/07/16 18:45 09/06/16 18:44 Sodium Chloride (0.45% NS 1000ml) 1,000 ml @ 50 mls/hr Q20H IV 08/08/16 10:30 09/07/16 10:29 08/10/16 02:34 LILLIAM NG Aug 10, 2016 12:09
[2016-08-10] MEDS ORDERED: 1/2 NS 1000ml IV ONE (18:40)
--- NOTE | 2016-08-10 19:42 | Cardiology Progress Note ---
Assessment/Plan Assessment/Plan respiratory failure profoudn sinus tachy demand related pulmonary infiltrates malignagnt pleural effusin abn lfts thrombocytopenia anemia renal failure coagulopathy ivf empiric abx vent support watch plt seem to be dropping renal fucntion better poor prognosis overall with met disease more responsive hemodynamically better Subjective Cardiovascular: Reports: chest pain - with dep breathn Respiratory: Reports: shortness of breath Gastrointestinal/Abdominal: Denies: abdominal pain Genitourinary: Denies: burning Subjective Objective Last 24 Hour Vital Signs Date Time Temp Pulse Resp B/P Pulse Ox O2 Delivery O2 Flow Rate FiO2 08/10/16 19:24 137 31 40 08/10/16 18:08 135 25 134/94 100 Mechanical Ventilator 40 08/10/16 17:15 135 25 40 08/10/16 17:00 135 27 133/92 100 Mechanical Ventilator 40 08/10/16 16:04 40 08/10/16 16:03 133 08/10/16 16:02 100.0 132 24 148/78 100 Mechanical Ventilator 40 08/10/16 15:49 40 08/10/16 15:49 134 08/10/16 15:15 135 28 40 08/10/16 15:00 124 27 147/79 100 Mechanical Ventilator 40 08/10/16 14:00 122 28 136/84 100 Mechanical Ventilator 40 08/10/16 13:15 134 27 40 08/10/16 13:00 119 27 114/88 100 Mechanical Ventilator 40 08/10/16 12:00 124 08/10/16 12:00 98.6 130 27 123/76 100 Mechanical Ventilator 40 08/10/16 12:00 40 08/10/16 11:15 131 22 40 08/10/16 11:00 117 24 146/63 100 Mechanical Ventilator 40 08/10/16 10:00 126 22 136/75 100 Mechanical Ventilator 40 08/10/16 09:15 126 21 40 08/10/16 09:00 97.3 116 21 118/73 100 Mechanical Ventilator 40 08/10/16 08:00 116 16 97/76 100 Mechanical Ventilator 40 08/10/16 08:00 40 08/10/16 08:00 123 08/10/16 07:15 116 22 40 08/10/16 07:00 116 16 97/76 100 Mechanical Ventilator 40 08/10/16 06:00 115 14 133/87 100 Mechanical Ventilator 40 08/10/16 05:30 114 22 40 08/10/16 05:00 112 16 125/74 99 Mechanical Ventilator 40 08/10/16 04:00 97.1 112 14 139/69 99 Mechanical Ventilator 40 08/10/16 04:00 40 08/10/16 04:00 111 08/10/16 03:30 113 24 40 08/10/16 03:00 114 17 111/72 99 Mechanical Ventilator 40 08/10/16 02:00 113 19 126/64 95 Mechanical Ventilator 40 08/10/16 01:30 119 24 40 08/10/16 01:00 117 19 132/65 99 Mechanical Ventilator 40 08/10/16 00:00 119 22 120/79 98 Mechanical Ventilator 40 08/10/16 00:00 40 08/10/16 00:00 122 08/09/16 23:10 126 27 40 08/09/16 23:00 97.0 121 22 142/72 100 Mechanical Ventilator 40 08/09/16 22:00 124 24 145/75 100 Mechanical Ventilator 40 08/09/16 21:23 124 26 40 08/09/16 21:00 124 24 136/71 100 Mechanical Ventilator 40 08/09/16 20:00 98.1 131 29 132/75 100 Mechanical Ventilator 40 08/09/16 20:00 40 08/09/16 20:00 132 General Appearance: no apparent distress, alert, on vent, patient on isolation Neck: no JVD Cardiovascular: normal rate, tachycardia Respiratory/Chest: rhonchi - bilaterally Abdomen: normal bowel sounds, non tender, soft Extremities: no swelling Intake and Output 08/09/16 08/10/16 19:00 07:00 Intake Total 1460 ml 600 ml Output Total 830 ml 1180 ml Balance 630 ml -580 ml Intake Free Water 100 ml IV Total 890 ml 600 ml Tube Feeding 420 ml Other 50 ml Output Urine Total 830 ml 930 ml Other 250 ml Laboratory Tests Test 08/10/16 04:10 08/10/16 04:30 08/10/16 10:16 White Blood Count 18.2 K/UL (4.8-10.8) H Red Blood Count 2.68 M/UL (4.70-6.10) L Hemoglobin 7.9 G/DL (14.2-18.0) L Hematocrit 22.8 % (42.0-52.0) L Mean Corpuscular Volume 85 FL (80-99) Mean Corpuscular Hemoglobin 29.6 PG (27.0-31.0) Mean Corpuscular Hemoglobin Concent 34.8 G/DL (32.0-36.0) Red Cell Distribution Width 15.7 % (11.6-14.8) H Platelet Count 22 K/UL (150-450) #L Mean Platelet Volume 10.5 FL (6.5-10.1) H Neutrophils (%) (Auto) % (45.0-75.0) Lymphocytes (%) (Auto) % (20.0-45.0) Monocytes (%) (Auto) % (1.0-10.0) Eosinophils (%) (Auto) % (0.0-3.0) Basophils (%) (Auto) % (0.0-2.0) Differential Total Cells Counted 100 Neutrophils % (Manual) 81 % (45-75) H Lymphocytes % (Manual) 10 % (20-45) L Monocytes % (Manual) 8 % (1-10) Eosinophils % (Manual) 0 % (0-3) Basophils % (Manual) 0 % (0-2) Band Neutrophils 1 % (0-8) Nucleated Red Blood Cells 13 /100 WBC Platelet Estimate Decreased L Platelet Morphology Normal Polychromasia 1+ Hypochromasia 3+ Poikilocytosis 1+ Anisocytosis 1+ Spherocytes 2+ Prothrombin Time 12.8 SEC (9.30-11.50) H Prothromb Time International Ratio 1.3 (0.9-1.1) H Activated Partial Thromboplast Time 28 SEC (23-33) Sodium Level 148 mEQ/L (135-145) H Potassium Level 4.2 mEQ/L (3.4-4.9) Chloride Level 109 mEQ/L (98-107) H Carbon Dioxide Level 25 mEQ/L (20-30) Anion Gap 14 (5-15) Blood Urea Nitrogen 86 mg/dL (7-23) H Creatinine 1.2 mg/dL (0.7-1.2) Estimat Glomerular Filtration Rate > 60 mL/min (>60) Glucose Level 144 mg/dL (74-106) H Uric Acid 8.8 mg/dL (3.0-7.5) H Calcium Level 8.3 mg/dL (8.6-10.2) L Phosphorus Level 2.9 mg/dL (2.5-4.8) Magnesium Level 2.2 mg/dL (1.7-2.5) Total Bilirubin 0.8 mg/dL (0.0-1.2) Gamma Glutamyl Transpeptidase 43 U/L (8-61) Aspartate Amino Transf (AST/SGOT) 240 U/L (5-40) H Alanine Aminotransferase (ALT/SGPT) 157 U/L (3-41) H Alkaline Phosphatase 961 U/L (40-129) H C-Reactive Protein, Quantitative 12.3 mg/dL (< 0.5) H Pro-B-Type Natriuretic Peptide 1097 pg/mL (0-125) H Total Protein 4.9 g/dL (6.6-8.7) L Albumin 2.4 g/dL (3.5-5.2) L Globulin 2.5 g/dL Albumin/Globulin Ratio 0.9 (1.0-2.7) L Urine Eosinophils None seen Arterial Blood pH 7.424 (7.350-7.450) Arterial Blood Partial Pressure CO2 38.6 mmHg (35.0-45.0) Arterial Blood Partial Pressure O2 82.0 mmHg (75.0-100.0) Arterial Blood HCO3 24.7 mmol/L (22.0-26.0) Arterial Blood Oxygen Saturation 95.1 % (92.0-98.0) Arterial Blood Base Excess 0.3 Julio Test Positive NORI LE Aug 10, 2016 19:42
[2016-08-11] VITALS (24 sets, daily range): BP systolic 90–157; BP diastolic 49–96
[2016-08-11] MEDS: Morphine Sulfate 4mg/ml Inj IVP PRN ×4 (01:02→18:09)
[2016-08-11 04:36] LABS: MEAN CORPUSCULAR HEMOGLOBIN 30.3 PG (27.0-31.0); MEAN CORPUSCULAR HGB CONC 34.1 G/DL (32.0-36.0); MEAN CORPUSCULAR VOLUME 89 FL (80-99); MEAN PLATELET VOLUME 11.7 FL (6.5-10.1); PLATELET COUNT 24 K/UL (150-450); RED BLOOD COUNT 2.98 M/UL (4.70-6.10); WHITE BLOOD COUNT 20.1 K/UL (4.8-10.8)
[2016-08-11 04:39] LABS: ALBUMIN/GLOBULIN RATIO 0.9 (1.0-2.7); CALCIUM 8.5 mg/dL (8.6-10.2); CREATININE 1.7 mg/dL (0.7-1.2); GLOMERULAR FILTRATION RATE 40.7 mL/min (>60); MAGNESIUM 2.3 mg/dL (1.7-2.5); POTASSIUM 4.8 mEQ/L (3.4-4.9)
[2016-08-11 05:39] LABS: BAND NEUTROPHILS % (MANUAL) 19 % (0-8); LYMPHOCYTES % (MANUAL) 6 % (20-45); NEUTROPHILS % (MANUAL) 64 % (45-75); NUCLEATED RED BLOOD CELLS 18 /100 WBC; TOTAL CELLS COUNTED 100
[2016-08-11 05:40] LABS: ANISOCYTOSIS 3+; BASOPHILS % (MANUAL) 0 % (0-2); EOSINOPHILS % (MANUAL) 0 % (0-3); PLATELET ESTIMATE DECREASED; PLATELET MORPHOLOGY NORMAL; POIKILOCYTOSIS 3+
--- NOTE | 2016-08-11 07:58 | Infectious Diseases Prog Note ---
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 Add invanz d# 1 ( 08/09 SP IV vancomycin, cefepime d# 3 ?TCP ) - f/u cultures - monitor CBC, temperatures - monitor BMP - monitor CXR - vent support, wean as tolerated - poor overall prognosis Subjective Allergies: Coded Allergies: No Known Allergies (Unverified , 07/20/16) Subjective intermittent low grade fevers on vent. WBC up Cx NGTD Objective Vital Signs Last 24 Hour Vital Signs Date Time Temp Pulse Resp B/P Pulse Ox O2 Delivery O2 Flow Rate FiO2 08/11/16 07:18 108 26 40 08/11/16 07:00 107 20 105/60 100 Mechanical Ventilator 40 08/11/16 06:00 101 08/11/16 06:00 106 14 103/49 100 Mechanical Ventilator 40 08/11/16 05:30 105 21 40 08/11/16 05:00 104 20 103/49 100 Mechanical Ventilator 40 08/11/16 04:00 97.9 104 20 98/56 100 Mechanical Ventilator 40 08/11/16 04:00 40 08/11/16 03:40 103 21 40 08/11/16 03:00 102 20 90/50 100 Mechanical Ventilator 40 08/11/16 02:00 104 19 100/50 100 Mechanical Ventilator 40 08/11/16 01:25 105 23 40 08/11/16 01:00 105 19 100/50 100 Mechanical Ventilator 40 08/11/16 00:00 109 18 132/83 100 Mechanical Ventilator 40 08/11/16 00:00 136 08/11/16 00:00 40 08/10/16 23:19 107 23 40 08/10/16 23:00 98.1 111 16 118/87 100 Mechanical Ventilator 40 08/10/16 22:00 115 23 144/80 100 Mechanical Ventilator 40 08/10/16 21:11 115 26 40 08/10/16 21:00 117 17 144/80 100 Mechanical Ventilator 40 08/10/16 20:00 134 08/10/16 20:00 40 08/10/16 20:00 123 20 132/78 100 Mechanical Ventilator 40 08/10/16 19:29 97.9 08/10/16 19:24 137 31 40 08/10/16 19:00 99.9 136 28 111/62 100 Mechanical Ventilator 40 08/10/16 18:08 135 25 134/94 100 Mechanical Ventilator 40 08/10/16 17:15 135 25 40 08/10/16 17:00 135 27 133/92 100 Mechanical Ventilator 40 08/10/16 16:04 40 08/10/16 16:03 133 08/10/16 16:02 100.0 132 24 148/78 100 Mechanical Ventilator 40 08/10/16 15:49 40 08/10/16 15:49 134 08/10/16 15:15 135 28 40 08/10/16 15:00 124 27 147/79 100 Mechanical Ventilator 40 08/10/16 14:00 122 28 136/84 100 Mechanical Ventilator 40 08/10/16 13:15 134 27 40 08/10/16 13:00 119 27 114/88 100 Mechanical Ventilator 40 08/10/16 12:00 124 08/10/16 12:00 98.6 130 27 123/76 100 Mechanical Ventilator 40 08/10/16 12:00 40 08/10/16 11:15 131 22 40 08/10/16 11:00 117 24 146/63 100 Mechanical Ventilator 40 08/10/16 10:00 126 22 136/75 100 Mechanical Ventilator 40 08/10/16 09:15 126 21 40 08/10/16 09:00 97.3 116 21 118/73 100 Mechanical Ventilator 40 08/10/16 08:00 116 16 97/76 100 Mechanical Ventilator 40 08/10/16 08:00 40 08/10/16 08:00 123 Height (Feet): 5 Height (Inches): 7.00 Weight (Pounds): 162 General Appearance: other - intubated, awake Respiratory/Chest: decreased breath sounds Cardiovascular: normal rate, regular rhythm Abdomen: normal bowel sounds, soft, non tender, non distended Laboratory Tests Test 08/10/16 10:16 08/11/16 04:00 Arterial Blood pH 7.424 (7.350-7.450) Arterial Blood Partial Pressure CO2 38.6 mmHg (35.0-45.0) Arterial Blood Partial Pressure O2 82.0 mmHg (75.0-100.0) Arterial Blood HCO3 24.7 mmol/L (22.0-26.0) Arterial Blood Oxygen Saturation 95.1 % (92.0-98.0) Arterial Blood Base Excess 0.3 Julio Test Positive White Blood Count 20.1 K/UL (4.8-10.8) H Red Blood Count 2.98 M/UL (4.70-6.10) L Hemoglobin 9.0 G/DL (14.2-18.0) L Hematocrit 26.5 % (42.0-52.0) L Mean Corpuscular Volume 89 FL (80-99) Mean Corpuscular Hemoglobin 30.3 PG (27.0-31.0) Mean Corpuscular Hemoglobin Concent 34.1 G/DL (32.0-36.0) Red Cell Distribution Width 15.0 % (11.6-14.8) H Platelet Count 24 K/UL (150-450) L Mean Platelet Volume 11.7 FL (6.5-10.1) H Neutrophils (%) (Auto) % (45.0-75.0) Lymphocytes (%) (Auto) % (20.0-45.0) Monocytes (%) (Auto) % (1.0-10.0) Eosinophils (%) (Auto) % (0.0-3.0) Basophils (%) (Auto) % (0.0-2.0) Differential Total Cells Counted 100 Neutrophils % (Manual) 64 % (45-75) Lymphocytes % (Manual) 6 % (20-45) L Monocytes % (Manual) 11 % (1-10) H Eosinophils % (Manual) 0 % (0-3) Basophils % (Manual) 0 % (0-2) Band Neutrophils 19 % (0-8) H Nucleated Red Blood Cells 18 /100 WBC Platelet Estimate Decreased L Platelet Morphology Normal Poikilocytosis 3+ Anisocytosis 3+ Sodium Level 149 mEQ/L (135-145) H Potassium Level 4.8 mEQ/L (3.4-4.9) Chloride Level 109 mEQ/L (98-107) H Carbon Dioxide Level 23 mEQ/L (20-30) Anion Gap 17 (5-15) H Blood Urea Nitrogen 100 mg/dL (7-23) H Creatinine 1.7 mg/dL (0.7-1.2) H Estimat Glomerular Filtration Rate 40.7 mL/min (>60) Glucose Level 138 mg/dL (74-106) H Calcium Level 8.5 mg/dL (8.6-10.2) L Phosphorus Level 4.0 mg/dL (2.5-4.8) Magnesium Level 2.3 mg/dL (1.7-2.5) Total Bilirubin 0.9 mg/dL (0.0-1.2) Aspartate Amino Transf (AST/SGOT) 222 U/L (5-40) H Alanine Aminotransferase (ALT/SGPT) 181 U/L (3-41) H Alkaline Phosphatase 1091 U/L (40-129) H Total Protein 5.0 g/dL (6.6-8.7) L Albumin 2.4 g/dL (3.5-5.2) L Globulin 2.6 g/dL Albumin/Globulin Ratio 0.9 (1.0-2.7) L Current Medications Medications (Trade) Dose Ordered Sig/Scot Route PRN Reason Start Time Stop Time Status Last Admin Dose Admin Acetaminophen (Tylenol) 650 mg Q4H PRN ORAL FEVER 08/06/16 22:45 09/05/16 22:44 08/10/16 18:30 Albuterol/ Ipratropium (DuoNeb 0.5-3(2.5)mg/3ml) 3 ml EVERY 4 HOURS PRN HHN Shortness of Breath 08/07/16 01:00 08/12/16 00:59 Allopurinol 200 mg 200 mg DAILY NG 08/08/16 15:00 09/07/16 14:59 08/10/16 10:59 Dextrose (Dextrose 50%) STAT PRN IV Hypoglycemia 08/07/16 18:45 09/06/16 18:44 Levofloxacin (Levaquin) 100 ml @ 100 mls/hr Q24H IVPB 08/09/16 11:30 08/16/16 11:29 08/10/16 11:30 Lorazepam (Ativan 2mg/ml 1ml) 2 mg EVERY 2 HOURS PRN IV For Anxiety 08/06/16 22:00 08/13/16 21:59 08/09/16 06:09 Morphine Sulfate (Morphine Sulfate) 4 mg EVERY 4 HOURS PRN IVP Severe Pain (Pain Scale 7-10) 08/07/16 01:00 08/14/16 00:59 08/11/16 01:02 Ondansetron HCl (Zofran) 4 mg Q6H PRN IVP Nausea & Vomiting 08/07/16 00:45 09/06/16 00:44 Pantoprazole 40 mg 40 mg EVERY 12 HOURS IVP 08/07/16 09:00 09/06/16 08:59 08/10/16 20:55 Polyethylene Glycol (Miralax) 17 gm DAILYPRN PRN ORAL Constipation 08/07/16 18:45 09/06/16 18:44 Sodium Chloride (0.45% NS 1000ml) 1,000 ml @ 50 mls/hr Q20H IV 08/08/16 10:30 09/07/16 10:29 08/10/16 22:39 LILLIAM NG Aug 11, 2016 07:58
--- NOTE | 2016-08-11 08:29 | Diagnostic Imaging Report ---
Indications: Abnormal renal function tests Technique: Transabdominal real-time grayscale and duplex Doppler imaging of the kidneys, retroperitoneum, and urinary bladder was performed Findings: Comparison: CT abdomen pelvis 07/24 16 Right kidney measures 11.5 cm in length. Normal contour, echotexture, cortical thickness. Mild collecting system dilation, contains ureteral stent. No stones, other focal lesions, hydronephrosis, or obvious perinephric abnormalities. Left kidney measures 10.5 cm in length. Normal contour, echotexture, cortical thickness. Mild to moderate collecting system dilation, contains ureteral stent. No stones, other focal lesions, hydronephrosis, or obvious perinephric abnormalities. The intrahepatic portion of inferior vena cava is patent and normal caliber. Bilateral pleural effusions incidentally noted. The urinary bladder is collapsed, contains Parker catheter. IMPRESSION: Bilateral hydronephrosis despite ureteral stents in place, left greater than right. Stent malfunction not excludable. Collapsed urinary bladder with Parker catheter. Correlate above with urine output. Bilateral pleural effusions, nonspecific
--- NOTE | 2016-08-11 08:38 | Pulmonolgy Critical Care Note ---
Critical Care - Asmt/Plan Problems: (1) Acute hypoxemic respiratory failure (2) ATN (acute tubular necrosis) (3) Severe sepsis (4) Thrombocytopenia (5) Upper GI bleeding (6) Malignant pleural effusion (7) metatatic adenocarcinoma (8) Severe protein-calorie malnutrition Respiratory: monitor respiratory rate, adjust FIO2, CXR Cardiac: continue to monitor HR/BP Renal: F/U I&O, keep IV fluid, check electrolytes Infectious Disease: check cultures, continue antibiotics Gastrointestinal: continue feedings/current rate Endocrine: monitor blood sugar, check TSH, check HgA1C, continue sliding scale insulin Hematologic: monitor H/H, transfuse if hgb<8.5 Neurologic: PRN Ativan, PRN Morphine Affect: PRN ativan Disposition: keep in ICU Notes Reviewed: renal, ID, GI Discussed with: nurses, consultants, counter caserman[employer] investment - Objective Last 24 Hour Vital Signs Date Time Temp Pulse Resp B/P Pulse Ox O2 Delivery O2 Flow Rate FiO2 08/11/16 07:18 108 26 40 08/11/16 07:00 107 20 105/60 100 Mechanical Ventilator 40 08/11/16 06:00 101 08/11/16 06:00 106 14 103/49 100 Mechanical Ventilator 40 08/11/16 05:30 105 21 40 08/11/16 05:00 104 20 103/49 100 Mechanical Ventilator 40 08/11/16 04:00 97.9 104 20 98/56 100 Mechanical Ventilator 40 08/11/16 04:00 40 08/11/16 03:40 103 21 40 08/11/16 03:00 102 20 90/50 100 Mechanical Ventilator 40 08/11/16 02:00 104 19 100/50 100 Mechanical Ventilator 40 08/11/16 01:25 105 23 40 08/11/16 01:00 105 19 100/50 100 Mechanical Ventilator 40 08/11/16 00:00 109 18 132/83 100 Mechanical Ventilator 40 08/11/16 00:00 136 08/11/16 00:00 40 08/10/16 23:19 107 23 40 08/10/16 23:00 98.1 111 16 118/87 100 Mechanical Ventilator 40 08/10/16 22:00 115 23 144/80 100 Mechanical Ventilator 40 08/10/16 21:11 115 26 40 08/10/16 21:00 117 17 144/80 100 Mechanical Ventilator 40 08/10/16 20:00 134 08/10/16 20:00 40 08/10/16 20:00 123 20 132/78 100 Mechanical Ventilator 40 08/10/16 19:29 97.9 08/10/16 19:24 137 31 40 08/10/16 19:00 99.9 136 28 111/62 100 Mechanical Ventilator 40 08/10/16 18:08 135 25 134/94 100 Mechanical Ventilator 40 08/10/16 17:15 135 25 40 08/10/16 17:00 135 27 133/92 100 Mechanical Ventilator 40 08/10/16 16:04 40 08/10/16 16:03 133 08/10/16 16:02 100.0 132 24 148/78 100 Mechanical Ventilator 40 08/10/16 15:49 40 08/10/16 15:49 134 08/10/16 15:15 135 28 40 08/10/16 15:00 124 27 147/79 100 Mechanical Ventilator 40 08/10/16 14:00 122 28 136/84 100 Mechanical Ventilator 40 08/10/16 13:15 134 27 40 08/10/16 13:00 119 27 114/88 100 Mechanical Ventilator 40 08/10/16 12:00 124 08/10/16 12:00 98.6 130 27 123/76 100 Mechanical Ventilator 40 08/10/16 12:00 40 08/10/16 11:15 131 22 40 08/10/16 11:00 117 24 146/63 100 Mechanical Ventilator 40 08/10/16 10:00 126 22 136/75 100 Mechanical Ventilator 40 08/10/16 09:15 126 21 40 08/10/16 09:00 97.3 116 21 118/73 100 Mechanical Ventilator 40 Status: awake Condition: critical HEENT: atraumatic Neck: full ROM Lungs: clear, chest wall tender Heart: HR/BP stable, HR/BP unstable Abdomen: soft, non-tender, feeding tube Extremities: no C/C/E, edema Decubiti: location Critical Care - Subjective ROS Limited/Unobtainable: Yes ICU Day: 5 Intubation Day: 5 Condition: critical EKG Rhythm: Sinus Rhythm FI02: 40 Vent Support Breath Rate: 20 Vent Support Mode: AC Vent Tidal Volume: 600 Sputum Amount: Small PEEP: 5.0 PIP: 37 Secretions: small Fluids: NS 100 cc.our Tube Feeding Amount: 35 I&O: Intake and Output 08/10/16 08/11/16 19:00 07:00 Intake Total 550 ml 400 ml Output Total 1030 ml 900 ml Balance -480 ml -500 ml IV Total 550 ml 400 ml Output Urine Total 730 ml 800 ml Gastric Drainage Total 100 ml Other 300 ml CXR: no change ET-Tube: 7.5 ET Position: 24 Labs: Laboratory Tests Test 08/10/16 10:16 08/11/16 04:00 Arterial Blood pH 7.424 (7.350-7.450) Arterial Blood Partial Pressure CO2 38.6 mmHg (35.0-45.0) Arterial Blood Partial Pressure O2 82.0 mmHg (75.0-100.0) Arterial Blood HCO3 24.7 mmol/L (22.0-26.0) Arterial Blood Oxygen Saturation 95.1 % (92.0-98.0) Arterial Blood Base Excess 0.3 Julio Test Positive White Blood Count 20.1 K/UL (4.8-10.8) H Red Blood Count 2.98 M/UL (4.70-6.10) L Hemoglobin 9.0 G/DL (14.2-18.0) L Hematocrit 26.5 % (42.0-52.0) L Mean Corpuscular Volume 89 FL (80-99) Mean Corpuscular Hemoglobin 30.3 PG (27.0-31.0) Mean Corpuscular Hemoglobin Concent 34.1 G/DL (32.0-36.0) Red Cell Distribution Width 15.0 % (11.6-14.8) H Platelet Count 24 K/UL (150-450) L Mean Platelet Volume 11.7 FL (6.5-10.1) H Neutrophils (%) (Auto) % (45.0-75.0) Lymphocytes (%) (Auto) % (20.0-45.0) Monocytes (%) (Auto) % (1.0-10.0) Eosinophils (%) (Auto) % (0.0-3.0) Basophils (%) (Auto) % (0.0-2.0) Differential Total Cells Counted 100 Neutrophils % (Manual) 64 % (45-75) Lymphocytes % (Manual) 6 % (20-45) L Monocytes % (Manual) 11 % (1-10) H Eosinophils % (Manual) 0 % (0-3) Basophils % (Manual) 0 % (0-2) Band Neutrophils 19 % (0-8) H Nucleated Red Blood Cells 18 /100 WBC Platelet Estimate Decreased L Platelet Morphology Normal Poikilocytosis 3+ Anisocytosis 3+ Sodium Level 149 mEQ/L (135-145) H Potassium Level 4.8 mEQ/L (3.4-4.9) Chloride Level 109 mEQ/L (98-107) H Carbon Dioxide Level 23 mEQ/L (20-30) Anion Gap 17 (5-15) H Blood Urea Nitrogen 100 mg/dL (7-23) H Creatinine 1.7 mg/dL (0.7-1.2) H Estimat Glomerular Filtration Rate 40.7 mL/min (>60) Glucose Level 138 mg/dL (74-106) H Calcium Level 8.5 mg/dL (8.6-10.2) L Phosphorus Level 4.0 mg/dL (2.5-4.8) Magnesium Level 2.3 mg/dL (1.7-2.5) Total Bilirubin 0.9 mg/dL (0.0-1.2) Aspartate Amino Transf (AST/SGOT) 222 U/L (5-40) H Alanine Aminotransferase (ALT/SGPT) 181 U/L (3-41) H Alkaline Phosphatase 1091 U/L (40-129) H Total Protein 5.0 g/dL (6.6-8.7) L Albumin 2.4 g/dL (3.5-5.2) L Globulin 2.6 g/dL Albumin/Globulin Ratio 0.9 (1.0-2.7) L BARBRA CARDENAS Aug 11, 2016 08:38
[2016-08-11] MEDS ORDERED: Ertapenem 1 GM in NS 55 ML IVPB SCH (09:00)
--- NOTE | 2016-08-11 09:07 | Diagnostic Imaging Report ---
Indications: DYSPNEA Technique: Portable AP chest Findings: Comparison: None Compromised image quality due to exposure settings limits evaluation. These bilateral mixed interstitial and alveolar opacities, large left and small right pleural effusions persist, unchanged. Lines and tubes remain in place. No new abnormality identified. IMPRESSION: No change from one day prior
[2016-08-11] MEDS: Allopurinol 100mg Tab NG SCH (09:13)
[2016-08-11] MEDS: Pantoprazole Inj IVP SCH ×2 (09:13→20:50)
[2016-08-11] MEDS: Ertapenem 1 GM in NS 110 ML IVPB SCH (09:14)
--- NOTE | 2016-08-11 10:13 | General Progress Note ---
Assessment/Plan Status: unchanged Status Narrative Cr bonifacio 1.7 today Assessment/Plan (1) Acute hypoxemic respiratory failure on Vent (2) ATN (acute tubular necrosis), multifactorial , IMPROVED, HyperKalemia ( Hyperkalemia and SCr improved) (3) Severe sepsis Possible healthcare-associated pneumonia. Sputum culture is pending. Chest x-ray shows diffuse infiltrates versus pulmonary edema, unchanged from previous. Possible urinary tract infection. Urine cultures, no growth to date. 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 (6) Severe protein-calorie malnutrition (7) Anemia PLAN: 1. antibiotics- 2. Follow up cultures. 3. Monitor CBC and electrolytes- treat high K as needed 4. Monitor BMP. 5. Monitor chest x-ray. 6. Resp suport 7. Urine studies, monitor renal parameters- avoid nephrotoxics 8. Weaning as possible Subjective ROS Limited/Unobtainable: Yes Allergies: Coded Allergies: No Known Allergies (Unverified , 07/20/16) Objective Last 24 Hour Vital Signs Date Time Temp Pulse Resp B/P Pulse Ox O2 Delivery O2 Flow Rate FiO2 08/11/16 09:03 120 22 40 08/11/16 09:00 118 20 129/56 100 Mechanical Ventilator 40 08/11/16 08:00 98.9 117 27 139/61 100 Mechanical Ventilator 40 08/11/16 08:00 40 08/11/16 07:18 108 26 40 08/11/16 07:00 107 20 105/60 100 Mechanical Ventilator 40 08/11/16 06:00 101 08/11/16 06:00 106 14 103/49 100 Mechanical Ventilator 40 08/11/16 05:30 105 21 40 08/11/16 05:00 104 20 103/49 100 Mechanical Ventilator 40 08/11/16 04:00 97.9 104 20 98/56 100 Mechanical Ventilator 40 08/11/16 04:00 40 08/11/16 03:40 103 21 40 08/11/16 03:00 102 20 90/50 100 Mechanical Ventilator 40 08/11/16 02:00 104 19 100/50 100 Mechanical Ventilator 40 08/11/16 01:25 105 23 40 08/11/16 01:00 105 19 100/50 100 Mechanical Ventilator 40 08/11/16 00:00 109 18 132/83 100 Mechanical Ventilator 40 08/11/16 00:00 136 08/11/16 00:00 40 08/10/16 23:19 107 23 40 08/10/16 23:00 98.1 111 16 118/87 100 Mechanical Ventilator 40 08/10/16 22:00 115 23 144/80 100 Mechanical Ventilator 40 08/10/16 21:11 115 26 40 08/10/16 21:00 117 17 144/80 100 Mechanical Ventilator 40 08/10/16 20:00 134 08/10/16 20:00 40 08/10/16 20:00 123 20 132/78 100 Mechanical Ventilator 40 08/10/16 19:29 97.9 08/10/16 19:24 137 31 40 08/10/16 19:00 99.9 136 28 111/62 100 Mechanical Ventilator 40 08/10/16 18:08 135 25 134/94 100 Mechanical Ventilator 40 08/10/16 17:15 135 25 40 08/10/16 17:00 135 27 133/92 100 Mechanical Ventilator 40 08/10/16 16:04 40 08/10/16 16:03 133 08/10/16 16:02 100.0 132 24 148/78 100 Mechanical Ventilator 40 08/10/16 15:49 40 08/10/16 15:49 134 08/10/16 15:15 135 28 40 08/10/16 15:00 124 27 147/79 100 Mechanical Ventilator 40 08/10/16 14:00 122 28 136/84 100 Mechanical Ventilator 40 08/10/16 13:15 134 27 40 08/10/16 13:00 119 27 114/88 100 Mechanical Ventilator 40 08/10/16 12:00 124 08/10/16 12:00 98.6 130 27 123/76 100 Mechanical Ventilator 40 08/10/16 12:00 40 08/10/16 11:15 131 22 40 08/10/16 11:00 117 24 146/63 100 Mechanical Ventilator 40 Intake and Output 08/10/16 08/11/16 19:00 07:00 Intake Total 550 ml 400 ml Output Total 1030 ml 900 ml Balance -480 ml -500 ml IV Total 550 ml 400 ml Output Urine Total 730 ml 800 ml Gastric Drainage Total 100 ml Other 300 ml Laboratory Tests 08/10/16 10:16: Arterial Blood pH 7.424, Arterial Blood Partial Pressure CO2 38.6, Arterial Blood Partial Pressure O2 82.0, Arterial Blood HCO3 24.7, Arterial Blood Oxygen Saturation 95.1, Arterial Blood Base Excess 0.3, Julio Test Positive 08/11/16 04:00: White Blood Count 20.1H, Red Blood Count 2.98L, Hemoglobin 9.0L, Hematocrit 26.5L, Mean Corpuscular Volume 89, Mean Corpuscular Hemoglobin 30.3, Mean Corpuscular Hemoglobin Concent 34.1, Red Cell Distribution Width 15.0H, Platelet Count 24L, Mean Platelet Volume 11.7H, Neutrophils (%) (Auto) , Lymphocytes (%) (Auto) , Monocytes (%) (Auto) , Eosinophils (%) (Auto) , Basophils (%) (Auto) , Differential Total Cells Counted 100, Neutrophils % ( Manual) 64, Lymphocytes % (Manual) 6L, Monocytes % (Manual) 11H, Eosinophils % ( Manual) 0, Basophils % (Manual) 0, Band Neutrophils 19H, Nucleated Red Blood Cells 18, Platelet Estimate DecreasedL, Platelet Morphology Normal, Poikilocytosis 3+, Anisocytosis 3+, Sodium Level 149H, Potassium Level 4.8, Chloride Level 109H, Carbon Dioxide Level 23, Anion Gap 17H, Blood Urea Nitrogen 100H, Creatinine 1.7H, Estimat Glomerular Filtration Rate 40.7, Glucose Level 138H, Calcium Level 8.5L, Phosphorus Level 4.0, Magnesium Level 2.3, Total Bilirubin 0.9, Aspartate Amino Transf (AST/SGOT) 222H, Alanine Aminotransferase (ALT/SGPT) 181H, Alkaline Phosphatase 1091H, Total Protein 5.0L , Albumin 2.4L, Globulin 2.6, Albumin/Globulin Ratio 0.9L Height (Feet): 5 Height (Inches): 7.00 Weight (Pounds): 162 General Appearance: no apparent distress EENT: other - remains intubated on Vent Objective other PE not changed LA FALK Aug 11, 2016 10:13
[2016-08-11 13:39] LABS: ABG PCO2 35.4 mmHg (35.0-45.0)
[2016-08-11 13:40] LABS: ABG ALLEN TEST POSITIVE; ABG BASE EXCESS -2.6
--- NOTE | 2016-08-11 16:02 | Cardiology Progress Note ---
Assessment/Plan Problem List: (1) Metastatic adenocarcinoma (2) Anemia (3) Leukocytosis (4) Respiratory failure (5) Sepsis (6) Severe protein-calorie malnutrition Status: stable, unchanged Status Narrative Pt w/ respiratory failure, met adeno carcinoma, large L pl effusion - ? malignant. He has sinus tachycardia, to the 130s, which appears secondary to metabolic factors, incl malignancy, sepsis. He is hypertensive. Assessment/Plan Continue vent support - wean as tolerated. Consider therapeutic thoracentesis. Consider low dose b katie for BP , HR Subjective ROS Limited/Unobtainable: Yes Subjective Mr. Hedrick is awake/alert, on vent. Asking for water Objective Last 24 Hour Vital Signs Date Time Temp Pulse Resp B/P Pulse Ox O2 Delivery O2 Flow Rate FiO2 08/11/16 15:18 130 26 30 08/11/16 15:00 132 28 130/80 100 Mechanical Ventilator 40 08/11/16 14:00 126 26 124/82 100 Mechanical Ventilator 40 08/11/16 13:15 122 20 30 08/11/16 13:00 122 22 135/79 100 Mechanical Ventilator 40 08/11/16 12:00 113 08/11/16 12:00 98.3 112 23 136/72 96 Mechanical Ventilator 40 08/11/16 12:00 40 08/11/16 11:15 111 20 30 08/11/16 11:00 113 20 138/81 100 Mechanical Ventilator 40 08/11/16 10:00 120 21 152/80 100 Mechanical Ventilator 40 08/11/16 09:03 120 22 40 08/11/16 09:00 118 20 129/56 100 Mechanical Ventilator 40 08/11/16 08:00 110 08/11/16 08:00 98.9 117 27 139/61 100 Mechanical Ventilator 40 08/11/16 08:00 40 08/11/16 07:18 108 26 40 08/11/16 07:00 107 20 105/60 100 Mechanical Ventilator 40 08/11/16 06:00 101 08/11/16 06:00 106 14 103/49 100 Mechanical Ventilator 40 08/11/16 05:30 105 21 40 08/11/16 05:00 104 20 103/49 100 Mechanical Ventilator 40 08/11/16 04:00 97.9 104 20 98/56 100 Mechanical Ventilator 40 08/11/16 04:00 40 08/11/16 03:40 103 21 40 08/11/16 03:00 102 20 90/50 100 Mechanical Ventilator 40 08/11/16 02:00 104 19 100/50 100 Mechanical Ventilator 40 08/11/16 01:25 105 23 40 08/11/16 01:00 105 19 100/50 100 Mechanical Ventilator 40 08/11/16 00:00 109 18 132/83 100 Mechanical Ventilator 40 08/11/16 00:00 136 08/11/16 00:00 40 08/10/16 23:19 107 23 40 08/10/16 23:00 98.1 111 16 118/87 100 Mechanical Ventilator 40 08/10/16 22:00 115 23 144/80 100 Mechanical Ventilator 40 08/10/16 21:11 115 26 40 08/10/16 21:00 117 17 144/80 100 Mechanical Ventilator 40 08/10/16 20:00 134 08/10/16 20:00 40 08/10/16 20:00 123 20 132/78 100 Mechanical Ventilator 40 08/10/16 19:29 97.9 08/10/16 19:24 137 31 40 08/10/16 19:00 99.9 136 28 111/62 100 Mechanical Ventilator 40 08/10/16 18:08 135 25 134/94 100 Mechanical Ventilator 40 08/10/16 17:15 135 25 40 08/10/16 17:00 135 27 133/92 100 Mechanical Ventilator 40 08/10/16 16:04 40 08/10/16 16:03 133 08/10/16 16:02 100.0 132 24 148/78 100 Mechanical Ventilator 40 General Appearance: alert, cachetic, on vent EENT: PERRL/EOMI, other - et, og tubes in place Neck: non-tender, no JVD Rhythm: NSR, ST Cardiovascular: regular rhythm, no gallop/murmur, tachycardia Respiratory/Chest: lungs clear, other - clear anteriorly Abdomen: non tender, soft Extremities: no swelling Intake and Output 08/10/16 08/11/16 19:00 07:00 Intake Total 550 ml 450 ml Output Total 1030 ml 900 ml Balance -480 ml -450 ml IV Total 550 ml 450 ml Output Urine Total 730 ml 800 ml Gastric Drainage Total 100 ml Other 300 ml Laboratory Tests Test 08/11/16 04:00 08/11/16 12:50 White Blood Count 20.1 K/UL (4.8-10.8) H Red Blood Count 2.98 M/UL (4.70-6.10) L Hemoglobin 9.0 G/DL (14.2-18.0) L Hematocrit 26.5 % (42.0-52.0) L Mean Corpuscular Volume 89 FL (80-99) Mean Corpuscular Hemoglobin 30.3 PG (27.0-31.0) Mean Corpuscular Hemoglobin Concent 34.1 G/DL (32.0-36.0) Red Cell Distribution Width 15.0 % (11.6-14.8) H Platelet Count 24 K/UL (150-450) L Mean Platelet Volume 11.7 FL (6.5-10.1) H Neutrophils (%) (Auto) % (45.0-75.0) Lymphocytes (%) (Auto) % (20.0-45.0) Monocytes (%) (Auto) % (1.0-10.0) Eosinophils (%) (Auto) % (0.0-3.0) Basophils (%) (Auto) % (0.0-2.0) Differential Total Cells Counted 100 Neutrophils % (Manual) 64 % (45-75) Lymphocytes % (Manual) 6 % (20-45) L Monocytes % (Manual) 11 % (1-10) H Eosinophils % (Manual) 0 % (0-3) Basophils % (Manual) 0 % (0-2) Band Neutrophils 19 % (0-8) H Nucleated Red Blood Cells 18 /100 WBC Platelet Estimate Decreased L Platelet Morphology Normal Poikilocytosis 3+ Anisocytosis 3+ Sodium Level 149 mEQ/L (135-145) H Potassium Level 4.8 mEQ/L (3.4-4.9) Chloride Level 109 mEQ/L (98-107) H Carbon Dioxide Level 23 mEQ/L (20-30) Anion Gap 17 (5-15) H Blood Urea Nitrogen 100 mg/dL (7-23) H Creatinine 1.7 mg/dL (0.7-1.2) H Estimat Glomerular Filtration Rate 40.7 mL/min (>60) Glucose Level 138 mg/dL (74-106) H Calcium Level 8.5 mg/dL (8.6-10.2) L Phosphorus Level 4.0 mg/dL (2.5-4.8) Magnesium Level 2.3 mg/dL (1.7-2.5) Total Bilirubin 0.9 mg/dL (0.0-1.2) Aspartate Amino Transf (AST/SGOT) 222 U/L (5-40) H Alanine Aminotransferase (ALT/SGPT) 181 U/L (3-41) H Alkaline Phosphatase 1091 U/L (40-129) H Total Protein 5.0 g/dL (6.6-8.7) L Albumin 2.4 g/dL (3.5-5.2) L Globulin 2.6 g/dL Albumin/Globulin Ratio 0.9 (1.0-2.7) L Arterial Blood pH 7.400 (7.350-7.450) Arterial Blood Partial Pressure CO2 35.4 mmHg (35.0-45.0) Arterial Blood Partial Pressure O2 73.0 mmHg (75.0-100.0) L Arterial Blood HCO3 21.7 mmol/L (22.0-26.0) L Arterial Blood Oxygen Saturation 93.0 % (92.0-98.0) Arterial Blood Base Excess -2.6 Julio Test Positive SHARON VANEGAS Aug 11, 2016 16:02
[2016-08-11] MEDS: LORazepam Inj 2mg/ml 1ml IV PRN (20:04)
[2016-08-12] VITALS (25 sets, daily range): BP systolic 85–151; BP diastolic 41–87
[2016-08-12 04:56] LABS: MEAN CORPUSCULAR HEMOGLOBIN 30.6 PG (27.0-31.0); MEAN CORPUSCULAR HGB CONC 35.2 G/DL (32.0-36.0); MEAN CORPUSCULAR VOLUME 87 FL (80-99); MEAN PLATELET VOLUME 10.8 FL (6.5-10.1); PLATELET COUNT 28 K/UL (150-450); RED BLOOD COUNT 2.76 M/UL (4.70-6.10); RED CELL DISTRIBUTION WIDTH 15.8 % (11.6-14.8); WHITE BLOOD COUNT 20.5 K/UL (4.8-10.8)
[2016-08-12 05:34] LABS: CALCIUM 8.2 mg/dL (8.6-10.2); CREATININE 2.4 mg/dL (0.7-1.2); GLOMERULAR FILTRATION RATE 27.3 mL/min (>60); MAGNESIUM 2.3 mg/dL (1.7-2.5); PHOSPHORUS 3.9 mg/dL (2.5-4.8); POTASSIUM 4.9 mEQ/L (3.4-4.9); TOTAL PROTEIN 4.8 g/dL (6.6-8.7)
[2016-08-12 08:15] LABS: ABG ALLEN TEST POSITIVE; ABG BASE EXCESS -5.4; ABG PCO2 31.8 mmHg (35.0-45.0)
--- NOTE | 2016-08-12 08:25 | Infectious Diseases Prog Note ---
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 WBC stable Cx NGTD Objective Vital Signs Last 24 Hour Vital Signs Date Time Temp Pulse Resp B/P Pulse Ox O2 Delivery O2 Flow Rate FiO2 08/12/16 08:00 30 08/12/16 08:00 100.8 126 26 105/87 96 Mechanical Ventilator 30 08/12/16 08:00 126 08/12/16 07:37 127 31 30 08/12/16 07:00 127 30 126/79 98 Mechanical Ventilator 30 08/12/16 06:00 129 29 133/76 100 Mechanical Ventilator 30 08/12/16 05:19 134 21 30 08/12/16 05:00 100.0 131 27 151/75 98 Mechanical Ventilator 30 08/12/16 04:00 130 08/12/16 04:00 130 28 127/77 98 Mechanical Ventilator 30 08/12/16 04:00 40 08/12/16 03:30 132 29 30 08/12/16 03:00 131 27 99/75 97 Mechanical Ventilator 30 08/12/16 02:00 129 25 118/71 98 Mechanical Ventilator 30 08/12/16 01:03 132 22 30 08/12/16 01:00 128 30 97/62 98 Mechanical Ventilator 30 08/12/16 00:00 40 08/12/16 00:00 127 08/12/16 00:00 98.5 127 24 111/82 96 Mechanical Ventilator 30 08/11/16 23:00 125 20 116/65 96 Mechanical Ventilator 30 08/11/16 22:49 124 23 30 08/11/16 22:02 122 20 95/61 96 Mechanical Ventilator 30 08/11/16 21:00 118 20 30 08/11/16 21:00 124 21 90/50 97 Mechanical Ventilator 30 08/11/16 20:00 98.7 122 20 109/60 97 Mechanical Ventilator 30 08/11/16 20:00 40 08/11/16 20:00 122 08/11/16 19:00 127 21 120/55 97 Mechanical Ventilator 30 08/11/16 18:29 132 20 30 08/11/16 18:00 125 26 113/73 96 Mechanical Ventilator 40 08/11/16 17:00 131 26 122/72 100 Mechanical Ventilator 40 08/11/16 16:45 134 20 30 08/11/16 16:00 99.8 131 28 157/96 99 Mechanical Ventilator 40 08/11/16 16:00 40 08/11/16 16:00 128 08/11/16 15:18 130 26 30 08/11/16 15:00 132 28 130/80 100 Mechanical Ventilator 40 08/11/16 14:00 126 26 124/82 100 Mechanical Ventilator 40 08/11/16 13:15 122 20 30 08/11/16 13:00 122 22 135/79 100 Mechanical Ventilator 40 08/11/16 12:00 113 08/11/16 12:00 98.3 112 23 136/72 96 Mechanical Ventilator 40 08/11/16 12:00 40 08/11/16 11:15 111 20 30 08/11/16 11:00 113 20 138/81 100 Mechanical Ventilator 40 08/11/16 10:00 120 21 152/80 100 Mechanical Ventilator 40 08/11/16 09:03 120 22 40 08/11/16 09:00 118 20 129/56 100 Mechanical Ventilator 40 Height (Feet): 5 Height (Inches): 7.00 Weight (Pounds): 162 General Appearance: other - intubated, awake Respiratory/Chest: decreased breath sounds Cardiovascular: normal rate, regular rhythm Abdomen: normal bowel sounds, soft, non tender, non distended Laboratory Tests Test 08/11/16 12:50 08/12/16 03:45 08/12/16 08:10 Arterial Blood pH 7.400 (7.350-7.450) 7.390 (7.350-7.450) Arterial Blood Partial Pressure CO2 35.4 mmHg (35.0-45.0) 31.8 mmHg (35.0-45.0) L Arterial Blood Partial Pressure O2 73.0 mmHg (75.0-100.0) L 69.7 mmHg (75.0-100.0) L Arterial Blood HCO3 21.7 mmol/L (22.0-26.0) L 18.8 mmol/L (22.0-26.0) L Arterial Blood Oxygen Saturation 93.0 % (92.0-98.0) 90.3 % (92.0-98.0) L Arterial Blood Base Excess -2.6 -5.4 Julio Test Positive Positive White Blood Count 20.5 K/UL (4.8-10.8) H Red Blood Count 2.76 M/UL (4.70-6.10) L Hemoglobin 8.4 G/DL (14.2-18.0) L Hematocrit 24.0 % (42.0-52.0) L Mean Corpuscular Volume 87 FL (80-99) Mean Corpuscular Hemoglobin 30.6 PG (27.0-31.0) Mean Corpuscular Hemoglobin Concent 35.2 G/DL (32.0-36.0) Red Cell Distribution Width 15.8 % (11.6-14.8) H Platelet Count 28 K/UL (150-450) L Mean Platelet Volume 10.8 FL (6.5-10.1) H Neutrophils (%) (Auto) % (45.0-75.0) Lymphocytes (%) (Auto) % (20.0-45.0) Monocytes (%) (Auto) % (1.0-10.0) Eosinophils (%) (Auto) % (0.0-3.0) Basophils (%) (Auto) % (0.0-2.0) Neutrophils % (Manual) Pending Lymphocytes % (Manual) Pending Platelet Estimate Pending Platelet Morphology Pending Sodium Level 145 mEQ/L (135-145) Potassium Level 4.9 mEQ/L (3.4-4.9) Chloride Level 105 mEQ/L (98-107) Carbon Dioxide Level 19 mEQ/L (20-30) L Anion Gap 21 (5-15) H Blood Urea Nitrogen 119 mg/dL (7-23) H Creatinine 2.4 mg/dL (0.7-1.2) H Estimat Glomerular Filtration Rate 27.3 mL/min (>60) Glucose Level 158 mg/dL (74-106) H Calcium Level 8.2 mg/dL (8.6-10.2) L Phosphorus Level 3.9 mg/dL (2.5-4.8) Magnesium Level 2.3 mg/dL (1.7-2.5) Total Bilirubin 0.6 mg/dL (0.0-1.2) Aspartate Amino Transf (AST/SGOT) 134 U/L (5-40) H Alanine Aminotransferase (ALT/SGPT) 137 U/L (3-41) H Alkaline Phosphatase 1133 U/L (40-129) H Total Protein 4.8 g/dL (6.6-8.7) L Albumin 2.4 g/dL (3.5-5.2) L Globulin 2.4 g/dL Albumin/Globulin Ratio 1.0 (1.0-2.7) Current Medications Medications (Trade) Dose Ordered Sig/Scot Route PRN Reason Start Time Stop Time Status Last Admin Dose Admin Acetaminophen (Tylenol) 650 mg Q4H PRN ORAL FEVER 08/06/16 22:45 09/05/16 22:44 08/12/16 08:11 Allopurinol 200 mg 200 mg DAILY NG 08/08/16 15:00 09/07/16 14:59 08/11/16 09:13 Dextrose (Dextrose 50%) STAT PRN IV Hypoglycemia 08/07/16 18:45 09/06/16 18:44 Ertapenem 1 gm/ Sodium Chloride 110 ml @ 220 mls/hr Q24H IVPB 08/11/16 09:00 08/16/16 08:59 08/11/16 09:14 Levofloxacin 100 ml @ 100 mls/hr Q24H IVPB 08/09/16 11:30 08/16/16 11:29 08/11/16 11:19 Lorazepam (Ativan 2mg/ml 1ml) 2 mg EVERY 2 HOURS PRN IV For Anxiety 08/06/16 22:00 08/13/16 21:59 08/11/16 20:04 Morphine Sulfate (Morphine Sulfate) 4 mg EVERY 4 HOURS PRN IVP Severe Pain (Pain Scale 7-10) 08/07/16 01:00 08/14/16 00:59 08/11/16 18:09 Ondansetron HCl (Zofran) 4 mg Q6H PRN IVP Nausea & Vomiting 08/07/16 00:45 09/06/16 00:44 Pantoprazole (Protonix) 40 mg EVERY 12 HOURS IVP 08/07/16 09:00 09/06/16 08:59 08/11/16 20:50 Polyethylene Glycol (Miralax) 17 gm DAILYPRN PRN ORAL Constipation 08/07/16 18:45 09/06/16 18:44 Sodium Chloride (0.45% NS 1000ml) 1,000 ml @ 75 mls/hr [id number] IV 08/11/16 11:00 09/10/16 10:59 08/12/16 02:15 LILLIAM NG Aug 12, 2016 08:25
[2016-08-12] MEDS: Ertapenem 1 GM in NS 110 ML IVPB SCH (09:04)
[2016-08-12] MEDS: Allopurinol 100mg Tab NG SCH (09:05)
[2016-08-12] MEDS: Pantoprazole Inj IVP SCH ×2 (09:05→20:58)
--- NOTE | 2016-08-12 09:12 | Diagnostic Imaging Report ---
Indications: Nasogastric tube placement Technique: Portable AP abdomen Findings: Comparison: None Laterality of image not labeled, presumed normal orientation. Pelvis excluded from image. Nasogastric tube descends over the midline mediastinum, crossing the apparent diaphragm, tip in the expected region of esophagogastric junction or proximal stomach, proximal port likely within distal thoracic esophagus. Upper portions of bilateral ureteral stents noted. Visualized bowel gas pattern nonobstructive. Mild degenerative changes lower lumbar spine. Pulmonary bibasal next interstitial and alveolar opacities. Bilateral pleural effusions left greater than right. IMPRESSION: Suboptimal visualization of nasogastric tube, tip may be within proximal stomach but recommend advancement 10 cm No other evidence of acute abdominal disease, limited as described Bilateral ureteral stents, distal extent not imaged Pulmonary interstitial and alveolar opacities, bilateral pleural effusions may be congestive or inflammatory in nature This correlates with [facility] preliminary report.
[2016-08-12 09:27] LABS: ANISOCYTOSIS 1+; BAND NEUTROPHILS % (MANUAL) 4 % (0-8); BASOPHILS % (MANUAL) 0 % (0-2); EOSINOPHILS % (MANUAL) 0 % (0-3); HYPOCHROMASIA 1+; LYMPHOCYTES % (MANUAL) 18 % (20-45); NEUTROPHILS % (MANUAL) 73 % (45-75); NUCLEATED RED BLOOD CELLS 29 /100 WBC; PLATELET ESTIMATE DECREASED; PLATELET MORPHOLOGY NORMAL; POLYCHROMASIA 1+; TOTAL CELLS COUNTED 100
--- NOTE | 2016-08-12 11:51 | Pulmonolgy Critical Care Note ---
Critical Care - Asmt/Plan Problems: (1) Acute hypoxemic respiratory failure (2) ATN (acute tubular necrosis) (3) Severe sepsis (4) Thrombocytopenia (5) Upper GI bleeding (6) Malignant pleural effusion (7) metatatic adenocarcinoma (8) Severe protein-calorie malnutrition Respiratory: monitor respiratory rate, adjust FIO2, CXR, weaning trial Cardiac: continue to monitor HR/BP Renal: F/U I&O, keep IV fluid, check electrolytes Infectious Disease: check cultures, continue antibiotics Gastrointestinal: continue feedings/current rate Endocrine: monitor blood sugar, check HgA1C, continue sliding scale insulin Hematologic: transfuse if hgb<8.5 Neurologic: keep patient comfortable Affect: PRN ativan Prophylaxis: Heparin Notes Reviewed: counseling center director, cardio, renal Discussed with: nurses, consultants, case briefercustomer strategy manager - Objective Last 24 Hour Vital Signs Date Time Temp Pulse Resp B/P Pulse Ox O2 Delivery O2 Flow Rate FiO2 08/12/16 11:00 114 102/65 100 Mechanical Ventilator 30 08/12/16 11:00 119 31 30 08/12/16 10:00 116 97/44 96 Mechanical Ventilator 30 08/12/16 09:15 98.9 08/12/16 09:10 114 25 30 08/12/16 09:00 98.9 119 26 98/41 99 Mechanical Ventilator 30 08/12/16 08:00 30 08/12/16 08:00 100.8 126 26 105/87 96 Mechanical Ventilator 30 08/12/16 08:00 126 08/12/16 07:37 127 31 30 08/12/16 07:00 127 30 126/79 98 Mechanical Ventilator 30 08/12/16 06:00 129 29 133/76 100 Mechanical Ventilator 30 08/12/16 05:19 134 21 30 08/12/16 05:00 100.0 131 27 151/75 98 Mechanical Ventilator 30 08/12/16 04:00 130 08/12/16 04:00 130 28 127/77 98 Mechanical Ventilator 30 08/12/16 04:00 40 08/12/16 03:30 132 29 30 08/12/16 03:00 131 27 99/75 97 Mechanical Ventilator 30 08/12/16 02:00 129 25 118/71 98 Mechanical Ventilator 30 08/12/16 01:03 132 22 30 08/12/16 01:00 128 30 97/62 98 Mechanical Ventilator 30 08/12/16 00:00 40 08/12/16 00:00 127 08/12/16 00:00 98.5 127 24 111/82 96 Mechanical Ventilator 30 08/11/16 23:00 125 20 116/65 96 Mechanical Ventilator 30 08/11/16 22:49 124 23 30 08/11/16 22:02 122 20 95/61 96 Mechanical Ventilator 30 08/11/16 21:00 118 20 30 08/11/16 21:00 124 21 90/50 97 Mechanical Ventilator 30 08/11/16 20:00 98.7 122 20 109/60 97 Mechanical Ventilator 30 08/11/16 20:00 40 08/11/16 20:00 122 08/11/16 19:00 127 21 120/55 97 Mechanical Ventilator 30 08/11/16 18:29 132 20 30 08/11/16 18:00 125 26 113/73 96 Mechanical Ventilator 40 08/11/16 17:00 131 26 122/72 100 Mechanical Ventilator 40 08/11/16 16:45 134 20 30 08/11/16 16:00 99.8 131 28 157/96 99 Mechanical Ventilator 40 08/11/16 16:00 40 08/11/16 16:00 128 08/11/16 15:18 130 26 30 08/11/16 15:00 132 28 130/80 100 Mechanical Ventilator 40 08/11/16 14:00 126 26 124/82 100 Mechanical Ventilator 40 08/11/16 13:15 122 20 30 08/11/16 13:00 122 22 135/79 100 Mechanical Ventilator 40 08/11/16 12:00 113 08/11/16 12:00 98.3 112 23 136/72 96 Mechanical Ventilator 40 08/11/16 12:00 40 Status: sedated Condition: critical HEENT: atraumatic, normocephalic Lungs: rales, rhonchi Heart: HR/BP stable Abdomen: soft, non-tender Extremities: no C/C/E Decubiti: location Critical Care - Subjective ROS Limited/Unobtainable: No ICU Day: 7 Intubation Day: 7 Condition: critical EKG Rhythm: Sinus Rhythm FI02: 30 Vent Support Breath Rate: 20 Vent Support Mode: AC Vent Tidal Volume: 600 Sputum Amount: Small PEEP: 5.0 PIP: 32 Fluids: 1/2 NS 75 cc.hour Tube Feeding Amount: 35 I&O: Intake and Output 08/11/16 08/12/16 19:00 07:00 Intake Total 1255 ml 1220 ml Output Total 715 ml 400 ml Balance 540 ml 820 ml Intake Free Water 100 ml IV Total 1000 ml 900 ml Tube Feeding 120 ml 320 ml Other 35 ml Output Urine Total 715 ml 400 ml CXR: no change ET-Tube: 7.5 ET Position: 24 Labs: Laboratory Tests Test 08/11/16 12:50 08/12/16 03:45 08/12/16 08:10 Arterial Blood pH 7.400 (7.350-7.450) 7.390 (7.350-7.450) Arterial Blood Partial Pressure CO2 35.4 mmHg (35.0-45.0) 31.8 mmHg (35.0-45.0) L Arterial Blood Partial Pressure O2 73.0 mmHg (75.0-100.0) L 69.7 mmHg (75.0-100.0) L Arterial Blood HCO3 21.7 mmol/L (22.0-26.0) L 18.8 mmol/L (22.0-26.0) L Arterial Blood Oxygen Saturation 93.0 % (92.0-98.0) 90.3 % (92.0-98.0) L Arterial Blood Base Excess -2.6 -5.4 Julio Test Positive Positive White Blood Count 20.5 K/UL (4.8-10.8) H Corrected White Blood Count K/UL Red Blood Count 2.76 M/UL (4.70-6.10) L Hemoglobin 8.4 G/DL (14.2-18.0) L Hematocrit 24.0 % (42.0-52.0) L Mean Corpuscular Volume 87 FL (80-99) Mean Corpuscular Hemoglobin 30.6 PG (27.0-31.0) Mean Corpuscular Hemoglobin Concent 35.2 G/DL (32.0-36.0) Red Cell Distribution Width 15.8 % (11.6-14.8) H Platelet Count 28 K/UL (150-450) L Mean Platelet Volume 10.8 FL (6.5-10.1) H Neutrophils (%) (Auto) % (45.0-75.0) Lymphocytes (%) (Auto) % (20.0-45.0) Monocytes (%) (Auto) % (1.0-10.0) Eosinophils (%) (Auto) % (0.0-3.0) Basophils (%) (Auto) % (0.0-2.0) Differential Total Cells Counted 100 Neutrophils % (Manual) 73 % (45-75) Lymphocytes % (Manual) 18 % (20-45) L Monocytes % (Manual) 5 % (1-10) Eosinophils % (Manual) 0 % (0-3) Basophils % (Manual) 0 % (0-2) Band Neutrophils 4 % (0-8) Nucleated Red Blood Cells 29 /100 WBC Platelet Estimate Decreased L Platelet Morphology Normal Polychromasia 1+ Hypochromasia 1+ Anisocytosis 1+ Sodium Level 145 mEQ/L (135-145) Potassium Level 4.9 mEQ/L (3.4-4.9) Chloride Level 105 mEQ/L (98-107) Carbon Dioxide Level 19 mEQ/L (20-30) L Anion Gap 21 (5-15) H Blood Urea Nitrogen 119 mg/dL (7-23) H Creatinine 2.4 mg/dL (0.7-1.2) H Estimat Glomerular Filtration Rate 27.3 mL/min (>60) Glucose Level 158 mg/dL (74-106) H Calcium Level 8.2 mg/dL (8.6-10.2) L Phosphorus Level 3.9 mg/dL (2.5-4.8) Magnesium Level 2.3 mg/dL (1.7-2.5) Total Bilirubin 0.6 mg/dL (0.0-1.2) Aspartate Amino Transf (AST/SGOT) 134 U/L (5-40) H Alanine Aminotransferase (ALT/SGPT) 137 U/L (3-41) H Alkaline Phosphatase 1133 U/L (40-129) H Total Protein 4.8 g/dL (6.6-8.7) L Albumin 2.4 g/dL (3.5-5.2) L Globulin 2.4 g/dL Albumin/Globulin Ratio 1.0 (1.0-2.7) BARBRA CARDENAS Aug 12, 2016 11:51
--- NOTE | 2016-08-12 11:58 | General Progress Note ---
Assessment/Plan Status: deteriorating Assessment/Plan (1) Acute hypoxemic respiratory failure on Vent (2) ATN (acute tubular necrosis), multifactorial , Cr rising again (3) Severe sepsis Possible healthcare-associated pneumonia. Sputum culture is pending. Chest x-ray shows diffuse infiltrates versus pulmonary edema, unchanged from previous. Possible urinary tract infection. Urine cultures, no growth to date. 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 (6) Severe protein-calorie malnutrition (7) Anemia PLAN: 1. antibiotics- 2. Per ID- 3. Monitor CBC and electrolytes- treat high K as needed 4. Monitor Renal parameters 5. Monitor chest x-ray. 6. Resp suport 7. Urine studies, monitor renal parameters- avoid nephrotoxics discussed with RN Poor prognosis Subjective ROS Limited/Unobtainable: Yes Allergies: Coded Allergies: No Known Allergies (Unverified , 07/20/16) Objective Last 24 Hour Vital Signs Date Time Temp Pulse Resp B/P Pulse Ox O2 Delivery O2 Flow Rate FiO2 08/12/16 11:00 114 102/65 100 Mechanical Ventilator 30 08/12/16 11:00 119 31 30 08/12/16 10:00 116 97/44 96 Mechanical Ventilator 30 08/12/16 09:15 98.9 08/12/16 09:10 114 25 30 08/12/16 09:00 98.9 119 26 98/41 99 Mechanical Ventilator 30 08/12/16 08:00 30 08/12/16 08:00 100.8 126 26 105/87 96 Mechanical Ventilator 30 08/12/16 08:00 126 08/12/16 07:37 127 31 30 08/12/16 07:00 127 30 126/79 98 Mechanical Ventilator 30 08/12/16 06:00 129 29 133/76 100 Mechanical Ventilator 30 08/12/16 05:19 134 21 30 08/12/16 05:00 100.0 131 27 151/75 98 Mechanical Ventilator 30 08/12/16 04:00 130 08/12/16 04:00 130 28 127/77 98 Mechanical Ventilator 30 08/12/16 04:00 40 08/12/16 03:30 132 29 30 08/12/16 03:00 131 27 99/75 97 Mechanical Ventilator 30 08/12/16 02:00 129 25 118/71 98 Mechanical Ventilator 30 08/12/16 01:03 132 22 30 08/12/16 01:00 128 30 97/62 98 Mechanical Ventilator 30 08/12/16 00:00 40 08/12/16 00:00 127 08/12/16 00:00 98.5 127 24 111/82 96 Mechanical Ventilator 30 08/11/16 23:00 125 20 116/65 96 Mechanical Ventilator 30 08/11/16 22:49 124 23 30 08/11/16 22:02 122 20 95/61 96 Mechanical Ventilator 30 08/11/16 21:00 118 20 30 08/11/16 21:00 124 21 90/50 97 Mechanical Ventilator 30 08/11/16 20:00 98.7 122 20 109/60 97 Mechanical Ventilator 30 08/11/16 20:00 40 08/11/16 20:00 122 08/11/16 19:00 127 21 120/55 97 Mechanical Ventilator 30 08/11/16 18:29 132 20 30 08/11/16 18:00 125 26 113/73 96 Mechanical Ventilator 40 08/11/16 17:00 131 26 122/72 100 Mechanical Ventilator 40 08/11/16 16:45 134 20 30 08/11/16 16:00 99.8 131 28 157/96 99 Mechanical Ventilator 40 08/11/16 16:00 40 08/11/16 16:00 128 08/11/16 15:18 130 26 30 08/11/16 15:00 132 28 130/80 100 Mechanical Ventilator 40 08/11/16 14:00 126 26 124/82 100 Mechanical Ventilator 40 08/11/16 13:15 122 20 30 08/11/16 13:00 122 22 135/79 100 Mechanical Ventilator 40 08/11/16 12:00 113 08/11/16 12:00 98.3 112 23 136/72 96 Mechanical Ventilator 40 08/11/16 12:00 40 Intake and Output 08/11/16 08/12/16 19:00 07:00 Intake Total 1255 ml 1220 ml Output Total 715 ml 400 ml Balance 540 ml 820 ml Intake Free Water 100 ml IV Total 1000 ml 900 ml Tube Feeding 120 ml 320 ml Other 35 ml Output Urine Total 715 ml 400 ml Laboratory Tests 08/11/16 12:50: Arterial Blood pH 7.400, Arterial Blood Partial Pressure CO2 35.4, Arterial Blood Partial Pressure O2 73.0L, Arterial Blood HCO3 21.7L, Arterial Blood Oxygen Saturation 93.0, Arterial Blood Base Excess -2.6, Julio Test Positive 08/12/16 03:45: White Blood Count 20.5H, Corrected White Blood Count , Red Blood Count 2.76L, Hemoglobin 8.4L, Hematocrit 24.0L, Mean Corpuscular Volume 87, Mean Corpuscular Hemoglobin 30.6, Mean Corpuscular Hemoglobin Concent 35.2, Red Cell Distribution Width 15.8H, Platelet Count 28L, Mean Platelet Volume 10.8H, Neutrophils (%) (Auto) , Lymphocytes (%) (Auto) , Monocytes (%) (Auto) , Eosinophils (%) (Auto) , Basophils (%) (Auto) , Differential Total Cells Counted 100, Neutrophils % (Manual) 73, Lymphocytes % (Manual) 18L, Monocytes % (Manual) 5, Eosinophils % (Manual) 0, Basophils % (Manual) 0, Band Neutrophils 4 , Nucleated Red Blood Cells 29, Platelet Estimate DecreasedL, Platelet Morphology Normal, Polychromasia 1+, Hypochromasia 1+, Anisocytosis 1+, Sodium Level 145, Potassium Level 4.9, Chloride Level 105, Carbon Dioxide Level 19L, Anion Gap 21H, Blood Urea Nitrogen 119H, Creatinine 2.4H, Estimat Glomerular Filtration Rate 27.3, Glucose Level 158H, Calcium Level 8.2L, Phosphorus Level 3.9, Magnesium Level 2.3, Total Bilirubin 0.6, Aspartate Amino Transf (AST/SGOT ) 134H, Alanine Aminotransferase (ALT/SGPT) 137H, Alkaline Phosphatase 1133H, Total Protein 4.8L, Albumin 2.4L, Globulin 2.4, Albumin/Globulin Ratio 1.0 08/12/16 08:10: Arterial Blood pH 7.390, Arterial Blood Partial Pressure CO2 31.8L, Arterial Blood Partial Pressure O2 69.7L, Arterial Blood HCO3 18.8L, Arterial Blood Oxygen Saturation 90.3L, Arterial Blood Base Excess -5.4, Julio Test Positive Height (Feet): 5 Height (Inches): 7.00 Weight (Pounds): 162 General Appearance: mild distress Cardiovascular: tachycardia Respiratory/Chest: decreased breath sounds Abdomen: distended Objective other PE not changed LA FALK Aug 12, 2016 11:57
[2016-08-12] MEDS: Morphine Sulfate 4mg/ml Inj IVP PRN (14:28)
--- NOTE | 2016-08-12 16:54 | Cardiology Progress Note ---
Assessment/Plan Problem List: (1) Metastatic adenocarcinoma (2) Anemia (3) Leukocytosis (4) Respiratory failure (5) Sepsis (6) Severe protein-calorie malnutrition Status: not improved, unchanged Status Narrative Pt w/ respiratory failure, met adeno carcinoma, large L pl effusion - ? malignant. He has sinus tachycardia, to the 130s, which appears secondary to metabolic factors, incl malignancy, sepsis. He is hypertensive. Assessment/Plan Continue vent support , IV antibiotics Consider therapeutic thoracentesis. BP has decreased , poss due to sedation, but cannot r/o due sepsis or intravasc depletion If pressor support needed, would give levophed, avoid dopamine as would further inc HR Subjective ROS Limited/Unobtainable: Yes Subjective Mr. Hedrick is sedated/ on vent Objective Last 24 Hour Vital Signs Date Time Temp Pulse Resp B/P Pulse Ox O2 Delivery O2 Flow Rate FiO2 08/12/16 16:00 99.2 115 16 95/42 93 Mechanical Ventilator 30 08/12/16 16:00 115 08/12/16 16:00 30 08/12/16 15:23 119 19 93/55 98 Mechanical Ventilator 30 08/12/16 15:00 114 24 30 08/12/16 15:00 115 19 85/45 95 Mechanical Ventilator 30 08/12/16 14:44 99.8 08/12/16 14:00 120 20 116/80 97 Mechanical Ventilator 30 08/12/16 13:00 118 27 30 08/12/16 13:00 126 24 107/55 100 Mechanical Ventilator 30 08/12/16 12:00 99.8 123 19 122/56 95 Mechanical Ventilator 30 08/12/16 12:00 123 08/12/16 12:00 30 08/12/16 11:00 114 102/65 100 Mechanical Ventilator 30 08/12/16 11:00 119 31 30 08/12/16 10:00 116 97/44 96 Mechanical Ventilator 30 08/12/16 09:15 98.9 08/12/16 09:10 114 25 30 08/12/16 09:00 98.9 119 26 98/41 99 Mechanical Ventilator 30 08/12/16 08:00 30 08/12/16 08:00 100.8 126 26 105/87 96 Mechanical Ventilator 30 08/12/16 08:00 126 08/12/16 07:37 127 31 30 08/12/16 07:00 127 30 126/79 98 Mechanical Ventilator 30 08/12/16 06:00 129 29 133/76 100 Mechanical Ventilator 30 08/12/16 05:19 134 21 30 08/12/16 05:00 100.0 131 27 151/75 98 Mechanical Ventilator 30 08/12/16 04:00 130 08/12/16 04:00 130 28 127/77 98 Mechanical Ventilator 30 08/12/16 04:00 40 08/12/16 03:30 132 29 30 08/12/16 03:00 131 27 99/75 97 Mechanical Ventilator 30 08/12/16 02:00 129 25 118/71 98 Mechanical Ventilator 30 08/12/16 01:03 132 22 30 08/12/16 01:00 128 30 97/62 98 Mechanical Ventilator 30 08/12/16 00:00 40 08/12/16 00:00 127 08/12/16 00:00 98.5 127 24 111/82 96 Mechanical Ventilator 30 08/11/16 23:00 125 20 116/65 96 Mechanical Ventilator 30 08/11/16 22:49 124 23 30 08/11/16 22:02 122 20 95/61 96 Mechanical Ventilator 30 08/11/16 21:00 118 20 30 08/11/16 21:00 124 21 90/50 97 Mechanical Ventilator 30 08/11/16 20:00 98.7 122 20 109/60 97 Mechanical Ventilator 30 08/11/16 20:00 40 08/11/16 20:00 122 08/11/16 19:00 127 21 120/55 97 Mechanical Ventilator 30 08/11/16 18:29 132 20 30 08/11/16 18:00 125 26 113/73 96 Mechanical Ventilator 40 08/11/16 17:00 131 26 122/72 100 Mechanical Ventilator 40 General Appearance: cachetic, on vent, other - sedated Neck: supple, no JVD Rhythm: NSR Cardiovascular: regular rhythm, no gallop/murmur, tachycardia Respiratory/Chest: other - scattered rhonchi bilat Abdomen: non tender, soft Extremities: no swelling Intake and Output 08/11/16 08/12/16 19:00 07:00 Intake Total 1255 ml 1220 ml Output Total 715 ml 400 ml Balance 540 ml 820 ml Intake Free Water 100 ml IV Total 1000 ml 900 ml Tube Feeding 120 ml 320 ml Other 35 ml Output Urine Total 715 ml 400 ml Laboratory Tests Test 08/12/16 03:45 08/12/16 08:10 White Blood Count 20.5 K/UL (4.8-10.8) H Corrected White Blood Count K/UL Red Blood Count 2.76 M/UL (4.70-6.10) L Hemoglobin 8.4 G/DL (14.2-18.0) L Hematocrit 24.0 % (42.0-52.0) L Mean Corpuscular Volume 87 FL (80-99) Mean Corpuscular Hemoglobin 30.6 PG (27.0-31.0) Mean Corpuscular Hemoglobin Concent 35.2 G/DL (32.0-36.0) Red Cell Distribution Width 15.8 % (11.6-14.8) H Platelet Count 28 K/UL (150-450) L Mean Platelet Volume 10.8 FL (6.5-10.1) H Neutrophils (%) (Auto) % (45.0-75.0) Lymphocytes (%) (Auto) % (20.0-45.0) Monocytes (%) (Auto) % (1.0-10.0) Eosinophils (%) (Auto) % (0.0-3.0) Basophils (%) (Auto) % (0.0-2.0) Differential Total Cells Counted 100 Neutrophils % (Manual) 73 % (45-75) Lymphocytes % (Manual) 18 % (20-45) L Monocytes % (Manual) 5 % (1-10) Eosinophils % (Manual) 0 % (0-3) Basophils % (Manual) 0 % (0-2) Band Neutrophils 4 % (0-8) Nucleated Red Blood Cells 29 /100 WBC Platelet Estimate Decreased L Platelet Morphology Normal Polychromasia 1+ Hypochromasia 1+ Anisocytosis 1+ Sodium Level 145 mEQ/L (135-145) Potassium Level 4.9 mEQ/L (3.4-4.9) Chloride Level 105 mEQ/L (98-107) Carbon Dioxide Level 19 mEQ/L (20-30) L Anion Gap 21 (5-15) H Blood Urea Nitrogen 119 mg/dL (7-23) H Creatinine 2.4 mg/dL (0.7-1.2) H Estimat Glomerular Filtration Rate 27.3 mL/min (>60) Glucose Level 158 mg/dL (74-106) H Calcium Level 8.2 mg/dL (8.6-10.2) L Phosphorus Level 3.9 mg/dL (2.5-4.8) Magnesium Level 2.3 mg/dL (1.7-2.5) Total Bilirubin 0.6 mg/dL (0.0-1.2) Aspartate Amino Transf (AST/SGOT) 134 U/L (5-40) H Alanine Aminotransferase (ALT/SGPT) 137 U/L (3-41) H Alkaline Phosphatase 1133 U/L (40-129) H Total Protein 4.8 g/dL (6.6-8.7) L Albumin 2.4 g/dL (3.5-5.2) L Globulin 2.4 g/dL Albumin/Globulin Ratio 1.0 (1.0-2.7) Arterial Blood pH 7.390 (7.350-7.450) Arterial Blood Partial Pressure CO2 31.8 mmHg (35.0-45.0) L Arterial Blood Partial Pressure O2 69.7 mmHg (75.0-100.0) L Arterial Blood HCO3 18.8 mmol/L (22.0-26.0) L Arterial Blood Oxygen Saturation 90.3 % (92.0-98.0) L Arterial Blood Base Excess -5.4 Julio Test Positive SHARON VANEGAS Aug 12, 2016 16:54
[2016-08-13] VITALS (15 sets, daily range): BP systolic 58–133; BP diastolic 27–80
[2016-08-13] MEDS: LORazepam Inj 2mg/ml 1ml IV PRN (01:10)
[2016-08-13 05:58] LABS: CALCIUM 8.3 mg/dL (8.6-10.2); CREATININE 3.1 mg/dL (0.7-1.2); GLOMERULAR FILTRATION RATE 20.3 mL/min (>60); MAGNESIUM 2.5 mg/dL (1.7-2.5); PHOSPHORUS 4.4 mg/dL (2.5-4.8); POTASSIUM 5.2 mEQ/L (3.4-4.9); TOTAL PROTEIN 4.6 g/dL (6.6-8.7)
[2016-08-13 06:56] LABS: MEAN CORPUSCULAR HEMOGLOBIN 31.5 PG (27.0-31.0); MEAN CORPUSCULAR HGB CONC 35.5 G/DL (32.0-36.0); MEAN CORPUSCULAR VOLUME 89 FL (80-99); RED BLOOD COUNT 2.46 M/UL (4.70-6.10); RED CELL DISTRIBUTION WIDTH 17.3 % (11.6-14.8)
[2016-08-13 06:58] LABS: WHITE BLOOD COUNT 19.2 K/UL (4.8-10.8)
[2016-08-13 06:59] LABS: PLATELET COUNT 65 K/UL (150-450)
--- NOTE | 2016-08-13 08:14 | General Progress Note ---
Assessment/Plan Status: unchanged, deteriorating Assessment/Plan (1) Acute hypoxemic respiratory failure on Vent (2) ATN (acute tubular necrosis), multifactorial , Cr rising again (3) Severe sepsis Possible healthcare-associated pneumonia. Sputum culture is pending. Chest x-ray shows diffuse infiltrates versus pulmonary edema, unchanged from previous. Possible urinary tract infection. Urine cultures, no growth to date. 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 (6) Severe protein-calorie malnutrition (7) Anemia- worsening PLAN: 1. antibiotics- 2. Per ID- 3. Monitor CBC and electrolytes- treat high K as needed 4. Monitor Renal parameters 5. May require HD if remains full code ! 6. Resp suport 7. Urine studies, monitor renal parameters- avoid nephrotoxics discussed with RN Poor prognosis, favor comfort care- Subjective ROS Limited/Unobtainable: Yes Allergies: Coded Allergies: No Known Allergies (Unverified , 07/20/16) Objective Last 24 Hour Vital Signs Date Time Temp Pulse Resp B/P Pulse Ox O2 Delivery O2 Flow Rate FiO2 08/13/16 08:00 100.7 125 28 117/58 100 Mechanical Ventilator 40 08/13/16 08:00 40 08/13/16 07:00 100.7 124 32 97/43 100 Mechanical Ventilator 40 08/13/16 06:56 115 22 40 08/13/16 06:00 100.7 123 27 101/59 98 Mechanical Ventilator 60 08/13/16 05:06 120 22 40 08/13/16 05:00 100.0 123 27 101/59 98 Mechanical Ventilator 60 08/13/16 04:00 120 08/13/16 04:00 40 08/13/16 04:00 100.0 124 27 133/29 98 Mechanical Ventilator 60 08/13/16 03:29 100.0 08/13/16 03:00 100.0 123 27 107/58 98 Mechanical Ventilator 60 08/13/16 02:53 122 25 40 08/13/16 02:00 100.7 123 27 107/58 98 Mechanical Ventilator 60 08/13/16 01:24 121 23 40 08/13/16 01:00 122 26 96/62 100 Mechanical Ventilator 60 08/13/16 00:00 40 08/13/16 00:00 100.4 122 24 120/44 100 Mechanical Ventilator 60 08/12/16 23:01 117 27 50 08/12/16 23:00 118 20 114/46 100 Mechanical Ventilator 60 08/12/16 22:00 118 20 114/46 100 Mechanical Ventilator 60 08/12/16 21:18 117 23 50 08/12/16 21:00 116 21 113/46 100 Mechanical Ventilator 60 08/12/16 21:00 116 08/12/16 20:00 99.3 115 21 114/86 100 Mechanical Ventilator 60 08/12/16 20:00 116 08/12/16 19:00 115 20 97/57 100 Mechanical Ventilator 60 08/12/16 19:00 60 08/12/16 18:55 117 20 30 08/12/16 18:00 124 20 135/82 100 Mechanical Ventilator 30 08/12/16 17:10 120 33 30 08/12/16 17:00 119 23 99/41 94 Mechanical Ventilator 30 08/12/16 16:00 99.2 115 16 95/42 93 Mechanical Ventilator 30 08/12/16 16:00 115 08/12/16 16:00 30 08/12/16 15:23 119 19 93/55 98 Mechanical Ventilator 30 08/12/16 15:00 114 24 30 08/12/16 15:00 115 19 85/45 95 Mechanical Ventilator 30 08/12/16 14:44 99.8 08/12/16 14:00 120 20 116/80 97 Mechanical Ventilator 30 08/12/16 13:00 118 27 30 08/12/16 13:00 126 24 107/55 100 Mechanical Ventilator 30 08/12/16 12:00 99.8 123 19 122/56 95 Mechanical Ventilator 30 08/12/16 12:00 123 08/12/16 12:00 30 08/12/16 11:00 114 102/65 100 Mechanical Ventilator 30 08/12/16 11:00 119 31 30 08/12/16 10:00 116 97/44 96 Mechanical Ventilator 30 08/12/16 09:10 114 25 30 08/12/16 09:00 98.9 119 26 98/41 99 Mechanical Ventilator 30 Intake and Output 08/12/16 08/13/16 19:00 07:00 Intake Total 1620 ml 1320 ml Output Total 335 ml 340 ml Balance 1285 ml 980 ml Intake Free Water 90 ml 150 ml IV Total 1110 ml 750 ml Tube Feeding 420 ml 420 ml Output Urine Total 335 ml 340 ml Laboratory Tests 08/13/16 03:45: White Blood Count 19.2H, Red Blood Count 2.46L, Hemoglobin 7.8L, Hematocrit 21.9L, Mean Corpuscular Volume 89, Mean Corpuscular Hemoglobin 31.5H, Mean Corpuscular Hemoglobin Concent 35.5, Red Cell Distribution Width 17.3H, Platelet Count 65#L, Mean Platelet Volume 10.0, Neutrophils (%) (Auto) , Lymphocytes (%) (Auto) , Monocytes (%) (Auto) , Eosinophils (%) (Auto) , Basophils (%) (Auto) , Neutrophils % (Manual) [Pending], Lymphocytes % (Manual) [Pending], Platelet Estimate [Pending], Platelet Morphology [Pending], Sodium Level 145, Potassium Level 5.2H, Chloride Level 105, Carbon Dioxide Level 20, Anion Gap 20H, Blood Urea Nitrogen 152#H, Creatinine 3.1H, Estimat Glomerular Filtration Rate 20.3, Glucose Level 132H, Calcium Level 8.3L, Phosphorus Level 4.4, Magnesium Level 2.5, Total Bilirubin 0.6, Aspartate Amino Transf (AST/SGOT ) 148H, Alanine Aminotransferase (ALT/SGPT) 114H, Alkaline Phosphatase 1214H, Total Protein 4.6L, Albumin 2.3L, Globulin 2.3, Albumin/Globulin Ratio 1.0 Height (Feet): 5 Height (Inches): 7.00 Weight (Pounds): 162 General Appearance: other - on Vent Cardiovascular: bradycardia Respiratory/Chest: decreased breath sounds Abdomen: distended Objective other PE not changed LA FALK Aug 13, 2016 08:14
[2016-08-13] MEDS: Allopurinol 100mg Tab NG SCH (08:35)
[2016-08-13] MEDS: Pantoprazole Inj IVP SCH (08:35)
[2016-08-13] MEDS: Ertapenem 1 GM in NS 110 ML IVPB SCH (08:38)
[2016-08-13 09:54] LABS: ABG BASE EXCESS -6.6; ABG PCO2 35.2 mmHg (35.0-45.0)
[2016-08-13 09:55] LABS: ABG ALLEN TEST POSITIVE
--- NOTE | 2016-08-13 10:34 | Pulmonolgy Critical Care Note ---
Critical Care - Asmt/Plan Problems: (1) Acute hypoxemic respiratory failure (2) ATN (acute tubular necrosis) (3) Severe sepsis (4) Thrombocytopenia (5) Upper GI bleeding (6) Malignant pleural effusion (7) metatatic adenocarcinoma (8) Severe protein-calorie malnutrition Respiratory: monitor respiratory rate, adjust FIO2, CXR Cardiac: continue to monitor HR/BP Renal: F/U I&O, keep IV fluid Infectious Disease: check cultures, continue antibiotics Gastrointestinal: continue feedings/current rate Endocrine: monitor blood sugar, check TSH, continue sliding scale insulin Hematologic: monitor H/H, transfuse if hgb<8.5 Neurologic: PRN Ativan, keep patient comfortable Disposition: keep in ICU Notes 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, 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 Discussed with: nurses, consultants, patient case manager, family member - will talk to family members about plan of care Critical Care - Objective Last 24 Hour Vital Signs Date Time Temp Pulse Resp B/P Pulse Ox O2 Delivery O2 Flow Rate FiO2 08/13/16 10:00 126 29 103/80 100 Mechanical Ventilator 40 08/13/16 09:15 117 22 40 08/13/16 09:00 126 33 93/71 100 Mechanical Ventilator 40 08/13/16 08:00 122 08/13/16 08:00 100.7 125 28 117/58 100 Mechanical Ventilator 40 08/13/16 08:00 40 08/13/16 07:00 100.7 124 32 97/43 100 Mechanical Ventilator 40 08/13/16 06:56 115 22 40 08/13/16 06:00 100.7 123 27 101/59 98 Mechanical Ventilator 60 08/13/16 05:06 120 22 40 08/13/16 05:00 100.0 123 27 101/59 98 Mechanical Ventilator 60 08/13/16 04:00 120 08/13/16 04:00 40 08/13/16 04:00 100.0 124 27 133/29 98 Mechanical Ventilator 60 08/13/16 03:29 100.0 08/13/16 03:00 100.0 123 27 107/58 98 Mechanical Ventilator 60 08/13/16 02:53 122 25 40 08/13/16 02:00 100.7 123 27 107/58 98 Mechanical Ventilator 60 08/13/16 01:24 121 23 40 08/13/16 01:00 122 26 96/62 100 Mechanical Ventilator 60 08/13/16 00:00 40 08/13/16 00:00 100.4 122 24 120/44 100 Mechanical Ventilator 60 08/12/16 23:01 117 27 50 08/12/16 23:00 118 20 114/46 100 Mechanical Ventilator 60 08/12/16 22:00 118 20 114/46 100 Mechanical Ventilator 60 08/12/16 21:18 117 23 50 08/12/16 21:00 116 21 113/46 100 Mechanical Ventilator 60 08/12/16 21:00 116 08/12/16 20:00 99.3 115 21 114/86 100 Mechanical Ventilator 60 08/12/16 20:00 116 08/12/16 19:00 115 20 97/57 100 Mechanical Ventilator 60 08/12/16 19:00 60 08/12/16 18:55 117 20 30 08/12/16 18:00 124 20 135/82 100 Mechanical Ventilator 30 08/12/16 17:10 120 33 30 08/12/16 17:00 119 23 99/41 94 Mechanical Ventilator 30 08/12/16 16:00 99.2 115 16 95/42 93 Mechanical Ventilator 30 08/12/16 16:00 115 08/12/16 16:00 30 08/12/16 15:23 119 19 93/55 98 Mechanical Ventilator 30 08/12/16 15:00 114 24 30 08/12/16 15:00 115 19 85/45 95 Mechanical Ventilator 30 08/12/16 14:44 99.8 08/12/16 14:00 120 20 116/80 97 Mechanical Ventilator 30 08/12/16 13:00 118 27 30 08/12/16 13:00 126 24 107/55 100 Mechanical Ventilator 30 08/12/16 12:00 99.8 123 19 122/56 95 Mechanical Ventilator 30 08/12/16 12:00 123 08/12/16 12:00 30 08/12/16 11:00 114 102/65 100 Mechanical Ventilator 30 08/12/16 11:00 119 31 30 Status: sedated, somnolent Condition: critical HEENT: atraumatic, normocephalic Neck: full ROM Heart: HR/BP stable Abdomen: soft, active bowel sounds, feeding tube Extremities: no C/C/E Decubiti: location, stage Critical Care - Subjective ROS Limited/Unobtainable: No ICU Day: 7 Intubation Day: 7 Condition: critical FI02: 40 Vent Support Breath Rate: 20 Vent Support Mode: AC Vent Tidal Volume: 600 Sputum Amount: Small PEEP: 5.0 PIP: 35 Fluids: 1/2 ns 75 cc.hour Tube Feeding Amount: 35 I&O: Intake and Output 08/12/16 08/13/16 18:59 06:59 Intake Total 1620 ml 1395 ml Output Total 335 ml 340 ml Balance 1285 ml 1055 ml Intake Free Water 90 ml 150 ml IV Total 1110 ml 825 ml Tube Feeding 420 ml 420 ml Output Urine Total 335 ml 340 ml CXR: Et in good position ET-Tube: 7.5 ET Position: 24 Labs: Laboratory Tests Test 08/13/16 03:45 08/13/16 09:20 White Blood Count 19.2 K/UL (4.8-10.8) H Red Blood Count 2.46 M/UL (4.70-6.10) L Hemoglobin 7.8 G/DL (14.2-18.0) L Hematocrit 21.9 % (42.0-52.0) L Mean Corpuscular Volume 89 FL (80-99) Mean Corpuscular Hemoglobin 31.5 PG (27.0-31.0) H Mean Corpuscular Hemoglobin Concent 35.5 G/DL (32.0-36.0) Red Cell Distribution Width 17.3 % (11.6-14.8) H Platelet Count 65 K/UL (150-450) #L Mean Platelet Volume 10.0 FL (6.5-10.1) Neutrophils (%) (Auto) % (45.0-75.0) Lymphocytes (%) (Auto) % (20.0-45.0) Monocytes (%) (Auto) % (1.0-10.0) Eosinophils (%) (Auto) % (0.0-3.0) Basophils (%) (Auto) % (0.0-2.0) Neutrophils % (Manual) Pending Lymphocytes % (Manual) Pending Platelet Estimate Pending Platelet Morphology Pending Sodium Level 145 mEQ/L (135-145) Potassium Level 5.2 mEQ/L (3.4-4.9) H Chloride Level 105 mEQ/L (98-107) Carbon Dioxide Level 20 mEQ/L (20-30) Anion Gap 20 (5-15) H Blood Urea Nitrogen 152 mg/dL (7-23) #H Creatinine 3.1 mg/dL (0.7-1.2) H Estimat Glomerular Filtration Rate 20.3 mL/min (>60) Glucose Level 132 mg/dL (74-106) H Calcium Level 8.3 mg/dL (8.6-10.2) L Phosphorus Level 4.4 mg/dL (2.5-4.8) Magnesium Level 2.5 mg/dL (1.7-2.5) Total Bilirubin 0.6 mg/dL (0.0-1.2) Aspartate Amino Transf (AST/SGOT) 148 U/L (5-40) H Alanine Aminotransferase (ALT/SGPT) 114 U/L (3-41) H Alkaline Phosphatase 1214 U/L (40-129) H Total Protein 4.6 g/dL (6.6-8.7) L Albumin 2.3 g/dL (3.5-5.2) L Globulin 2.3 g/dL Albumin/Globulin Ratio 1.0 (1.0-2.7) Arterial Blood pH 7.339 (7.350-7.450) Arterial Blood Partial Pressure CO2 35.2 mmHg (35.0-45.0) Arterial Blood Partial Pressure O2 78.5 mmHg (75.0-100.0) Arterial Blood HCO3 18.5 mmol/L (22.0-26.0) L Arterial Blood Oxygen Saturation 92.7 % (92.0-98.0) Arterial Blood Base Excess -6.6 Julio Test Positive BARBRA CARDENAS Aug 13, 2016 10:34
--- NOTE | 2016-08-13 10:41 | Diagnostic Imaging Report ---
Indications: DYSPNEA Technique: Portable AP chest Findings: Comparison: 08/12/16 Diffuse bilateral mixed interstitial and alveolar opacities, large left and small right pleural effusions persist, unchanged. Visualized portions of cardiomediastinal silhouette stable. Cardiac silhouette remains partially obscured. Lines and tubes remain in place. No new abnormality identified. IMPRESSION: No change from one day prior
[2016-08-13 10:43] LABS: ANISOCYTOSIS 1+; BAND NEUTROPHILS % (MANUAL) 9 % (0-8); BASOPHILS % (MANUAL) 0 % (0-2); EOSINOPHILS % (MANUAL) 2 % (0-3); HYPOCHROMASIA 3+; LYMPHOCYTES % (MANUAL) 8 % (20-45); NEUTROPHILS % (MANUAL) 74 % (45-75); NUCLEATED RED BLOOD CELLS 84 /100 WBC; PLATELET ESTIMATE DECREASED; PLATELET MORPHOLOGY NORMAL; POLYCHROMASIA 1+; SPHEROCYTES 2+; TOTAL CELLS COUNTED 100
[2016-08-13] MEDS ORDERED: Prochlorperazine 10mg tab ORAL PRN (13:30)
[2016-08-13] MEDS ORDERED: Artificial Tears 1.4% Op Soln BOTH EYES PRN (13:30)
[2016-08-13] MEDS ORDERED: Haloperidol 5mg/ml Inj IM PRN (13:30)
[2016-08-13] MEDS ORDERED: Glycopyrrolate 0.2mg/ml 1ml Vial IV PRN (13:30)
[2016-08-13] MEDS ORDERED: PCA Morphine 1mg/ml 30 ML IV PRN (13:30)
[2016-08-13] MEDS ORDERED: Morphine Sulfate 10mg/ml Inj IVP ONE (14:00)
[2016-08-13] MEDS ORDERED: NS 275ml ONE (15:59)
[2016-08-13] MEDS ORDERED: Tubing IV Secondary IV ONE (15:59)
[2016-08-13] MEDS ORDERED: 1/2 NS 1000ml IV ONE ×3 (15:59)
[2016-08-13] MEDS ORDERED: D5 1/2NS 1000ml IV ONE (15:59)
--- NOTE | 2016-08-14 14:57 | Diagnostic Imaging Report ---
Indications: DYSPNEA Technique: Portable AP chest Findings: Comparison: 08/06/2016 Lines and tubes remain in place. Diffuse bilateral mixed interstitial and alveolar opacities, bilateral pleural effusions unchanged. Cardiomediastinal silhouette stable. No new abnormality identified. IMPRESSION: No change from one day prior
--- NOTE | 2016-08-14 15:53 | Diagnostic Imaging Report ---
Indications: DYSPNEA Technique: Portable AP chest Findings: Comparison: 08/11/16 Bilateral pulmonary infiltrates, bilateral pleural effusions unchanged. Cardiomediastinal silhouette stable. Lines and tubes remain in place. No new abnormality identified. IMPRESSION: No change from one day prior
--- NOTE | 2016-08-14 16:09 | Diagnostic Imaging Report ---
APPROVED REPORT CPT Code: 54305 Present Symptoms Comments: COPD R/O DVT BILATERAL: Imaging reveals a patent deep venous system bilaterally. There is no evidence of thrombus within the femoral, popliteal or tibial segments. The greater saphenous veins are also within normal limits. Doppler indicates normal spontaneous flow within these segments.
--- NOTE | 2016-08-15 09:18 | Discharge Summary ---
Discharge Summary Hospital Course Date of Admission Aug 05, 2016 at 19:52 Date of Discharge Aug 13, 2016 at 16:00 Admitting Diagnosis sepsis, pleural effusion, metastatic bladder ca HPI Derick Hedrick is a 66 year old male who was admitted on Aug 05, 2016 at 19:52 for Sepsis,Pleural Effusion,Metastatic Bladder Hospital Course summary dictated #[id number] Discharge Discharge Disposition Patient was terminally extubated, placed on Morphine drip and comfort measures, patient , pronounced 08/13/16 at 1431 Discharge Diagnoses: [place]yan ([place]),Sunni BARAJAS Aug 15, 2016 09:18
--- NOTE | 2016-08-16 00:58 | Discharge Summary 2 SIG ---
DATE OF ADMISSION: 08/05/2016 DATE OF DISCHARGE: 08/13/2016 The patient was admitted under Dr. Salas. REASON FOR ADMISSION: A 66-year-old male with history of adenocarcinoma from primary bladder CA, malignant pleural effusion, recurrent, was brought in by ambulance from [facility] for acute respiratory distress. The patient was brought in by ambulance on a continuous positive airway pressure. The patient noted to be febrile. He was tachycardic and tachypneic. Workup in the emergency room revealed leukocytosis. The patient was diagnosed to have acute respiratory failure, sepsis, pneumonia, and was admitted initially to [facility] the [facility]. ADMITTING DIAGNOSES: 1. Acute hypoxemic respiratory failure. 2. Recurrent malignant pleural effusion. 3. Metastatic adenocarcinoma with primary bladder CA. 4. Possible healthcare-associated pneumonia. HOSPITAL STAY: The patient's pulmonary status deteriorated and he required intubation. ABG revealed acute hypoxemic hypercapnic respiratory failure. The patient transferred to ICU. Ventilator care provided. Pulmonary care provided. The patient follow up with ABG and chest x-ray with no improvement. Prior thoracentesis revealed malignancy of pleural fluid consistent with adenocarcinoma. Chest x-ray revealed large left pleural effusion and diffuse bilateral infiltrates. Infectious Disease doctor, online marketing coordinator, cash processor were all involved in care of this patient. The patient started to have multiorgan dysfunction including acute tubular necrosis, worsening despite IV fluids. Genetic Counsellor monitored closely. Electrolytes and renal parameters closely monitored. Urine studies done. No nephrotoxic medications. Genetic Counsellor suggested likely hemodialysis if the patient will remain Full code. Infectious Disease doctor followed the patient. Blood cultures were negative. Urine culture negative. The patient was on empiric antibiotics. Persistent fever and persistent leukocytosis as well as tachycardia. Roofing Foreman followed the patient for profound sinus tachycardia. Per online marketing coordinator, profound sinus tachycardia is likely demand related. Ventilator settings were adjusted as needed. The patient with history of GI bleeding. The patient noted to be anemic and transfused three units of packed red blood cells. The liver enzymes were steady going up, likely shock liver secondary to severe sepsis. All consults agreed that the patient is terminal and prognosis is grave. Dr. Salas spoke with the patient's brother who agreed to terminal extubation and comfort measures. Renal ultrasound revealed bilateral hydronephrosis, left more than right despite ureteral stent in place, possible stent malfunction. The patient was extubated at 1425 hours and started on morphine drip. The patient pronounced at 1431 hours. CAUSE OF : Cardiopulmonary arrest. FINAL DIAGNOSES: 1. Acute hypoxemic hypercapnic respiratory failure requiring intubation. 2. Recurrent malignant pleural effusion, left more than right. 3. Acute tubular necrosis, worsening. 4. Metastatic adenocarcinoma with primary bladder CA. 5. Severe sepsis. 6. Hospital care-associated pneumonia. 7. Elevated transaminase, likely secondary to shock liver due to the severe sepsis. 8. Profound sinus tachycardia, demand related. 9. Thrombocytopenia. 10. Coagulopathy. 11. Anemia, status post three units of packed red blood cells. I have been assigned to dictate discharge summary on this account and I was not involved in the patient's management. Johnny Salas M.D. I have been assigned to dictate discharge summary on this account and I was not involved in the patient's management. Sunni Stewardst. joseph's hospital health centerAmbika NMaria MPMaria M DR: LEXI JOB#: [id number] CC:
== END 2016-08-13 16:00 | disposition expired | DRG 870 ==
LOC: EDBD 17:02 → EMR 17:39 → 2W 19:52 → EDBEDREQ 20:36 → ICU 08-06 20:29
PROC: 5A1955Z Respiratory Ventilation, Greater than 96 Consecutive Hours (ICD-10-PCS; principal; 2016-08-04)
PROC: 0BH17EZ Insertion of Endotracheal Airway into Trachea, Via Natural or Artificial Opening (ICD-10-PCS; principal; 2016-08-04)
PROC: 30233N1 Transfusion of Nonautologous Red Blood Cells into Peripheral Vein, Percutaneous Approach (ICD-10-PCS; 2016-08-07)
DX: A41.9 Sepsis, unspecified organism (principal); N17.0 Acute kidney failure with tubular necrosis; J96.01 Acute respiratory failure with hypoxia; E43 Unspecified severe protein-calorie malnutrition; J91.0 Malignant pleural effusion; J18.9 Pneumonia, unspecified organism; C67.9 Malignant neoplasm of bladder, unspecified; D69.6 Thrombocytopenia, unspecified; N39.0 Urinary tract infection, site not specified; N17.9 Acute kidney failure, unspecified; Z66 Do not resuscitate; Z51.5 Encounter for palliative care; R65.20 Severe sepsis without septic shock; Z68.25 Body mass index [BMI] 25.0-25.9, adult; I12.9 Hypertensive chronic kidney disease with stage 1 through stage 4 chronic kidney disease, or unspecified chronic kidney disease; D64.9 Anemia, unspecified; N18.3 Chronic kidney disease, stage 3 (moderate); Y95 Nosocomial condition
CPT/HCPCS: 36415; 36600; 71010; 74000; 76775; 80053; 80069; 80202; 81001; 81003; 82140; 82378; 82436; 82533; 82550; 82553; 82607; 82746; 82803; 82977; 83540; 83550; 83605; 83615; 83735; 83880; 83930; 83935; 84100; 84133; 84300; 84439; 84443; 84481; 84484; 84550; 85007; 85025; 85044; 85060; 85610; 85651; 85730; 86140; 86850; 86900; 86901; 86920; 87040; 87081; 87086; 89050; 93005; 93306; 93970; 94002; 94003; 94660; 94664; J2405